=== PATIENT | female | born 1940 | race Caucasian/White ===

== ENCOUNTER 2018-03-30 09:30 | Emergency (ER) | payer MEDICARE, SELFPAY ==
[2018-03-30 09:34] VITALS: BP 136/68; PULSE 86; RESP 16; TEMP 36.7; O2SAT 100
[2018-03-30 09:59] LABS: Abs Immature Grans 0.01 k/cumm (0.0-0.09); Absolute Basophil Count 0.01 k/cumm (0.0-0.2); Absolute Eosinophil Count 0.27 k/cumm (0.0-0.7); Absolute Lymphocyte Count 2.07 k/cumm (1.2-3.4); Absolute Monocyte Count 0.37 k/cumm (0.11-0.7); Absolute Neutrophil Count 4.35 k/cumm (1.2-6.7); Basophils % 0.1; Bilirubin Negative (Negative); Blood Negative (Negative); Clarity Clear; Eosinophils % 3.8; Glucose Negative (Negative); HCT 45.2 % (36.0-46.0); HGB 15.5 g/dL (12.0-15.5); Immature Grans % 0.1; Ketones Negative (Negative); Leukocyte Esterase Negative (Negative); Lymphocytes % 29.2; Mean Corp. HGB Concentration 34.3 g/dL (32.0-36.0); Mean Corpuscular Hemoglobin 32.5 pg (27.0-33.0); Mean Corpuscular Volume 94.8 fL (80-95); Mean Platelet Volume 9.8 fL (8.0-11.0); Monocytes % 5.2; Neutrophils % 61.6; Nitrite Negative (Negative); Platelet Count 233 x1000/uL (130-400); RBC 4.77 m/cumm (4.00-5.20); RBC Distribution Width 13.2 % (11.7-14.6); Specific Gravity 1.025 (1.005-1.025); Urobilinogen 0.2 EU/dL (Up TO 0.2); White Blood Cell Count 7.08 k/cumm (4.4-10.8); pH 6.5 (5-8)
[2018-03-30 10:15] LABS: ALT 17 U/L (12-78); AST 16 U/L (15-37); Albumin 3.4 g/dL (3.4-5.0); Alkaline Phosphatase 76 U/L (46-116); Anion Gap 6.4 mmol/L (3-11); BUN 10 mg/dL (7-18); Bilirubin, Direct 0.15 mg/dL (0.00-0.20); Bilirubin, Total 0.8 mg/dL (0.2-1.0); CO2 29.6 mmol/L (21.0-32.0); Calcium 9.1 mg/dL (8.5-10.1); Chloride 102 mmol/L (98-107); Glucose 85 mg/dL (70-100); Lipase 86 U/L (73-393); Magnesium 1.9 mg/dL (1.8-2.4); Potassium 3.8 mmol/L (3.5-5.1); Sodium 138 mmol/L (136-145); Total Protein 6.7 g/dL (6.4-8.2)
[2018-03-30 10:18] LABS: Troponin I < 0.02 ng/mL (0.00-0.06)
--- NOTE | 2018-03-30 10:23 | DI.CT_ITS ---
SYMPTOMS/DIAGNOSIS: RT SIDED ABD PAIN, ? ACUTE PROCESS CT SCAN OF THE ABDOMEN AND PELVIS: CT scan of the abdomen and pelvis was performed following the uneventful administration of intravenous contrast material. Infiltrates are seen in the right middle and right lower lobe. There does appear to be some volume loss in the right middle lobe with scar bronchiectasis. The patient is status post cholecystectomy. There is dilatation of the extra and intrahepatic bile ducts which is new compared to the prior examination from 03/07/16. No hepatic mass is seen. The pancreas is unremarkable. The spleen is normal in size. The adrenal glands are unremarkable. There is again seen a large right renal cyst. There is normal and symmetric enhancement of the kidneys. No hydronephrosis is identified. The urinary bladder is intact. There are calcified uterine fibroids noted. The aorta is of normal caliber with mild atherosclerosis. No significant abdominal or pelvic adenopathy, ascites or pneumoperitoneum is present. There is diverticulosis of the colon but no evidence of acute diverticulitis. No evidence of bowel obstruction or inflammation. There is a moderate amount of retained stool in the colon suggesting constipation. There is now a large diverticulum arising from the second portion of the duodenum. This has shown internal increase in size compared to 03/07/16. Degenerative changes are seen in the spine particularly at the L 2 - 3 disc level. IMPRESSION: 1. New intra and extrahepatic biliary ductal dilatation. Follow up as clinically appropriate. If there is concern for a choledocholithiasis, an MRCP may be considered. 2. Constipation. 3. Interval increase in size of duodenal diverticulum. 4. Colonic diverticulosis but no evidence of acute diverticulitis. 5. Infiltrates in the right middle and right lower lobes with some volume loss and scarring in the right middle lobe. Pneumonia can not be excluded.
--- NOTE | 2018-03-30 10:25 | W.ED.GENAD ---
Discharge Plan Disposition Patient Disposition: HOME Condition: Improving Discharge Details Chief Complaint: Abd Prob Clinical Impression: Side pain Primary Care Provider: Jefferson Spain ED Provider: Antonia Hammonds Home Meds and New Rx's Prescriptions: Continue PROVENTIL HFA 18 GM HFA.AER.AD 2 puff Inhalation Q4H PRN Qty: 3 RF: 4 fluticasone [Flovent HFA] 12 GM HFA aerosol inhaler 2 puff Inhalation BID Qty: 3 RF: 11 umeclidinium [Incruse Ellipta] 62.5 MCG blister with device 1 puff Inhalation daily' Qty: 3 RF: 4 hydrocodone-acetaminophen 1 EACH tablet 1 ea PO TID PRNQty: 90 RF: 0 lorazepam 0.5 mg tablet 0.5 mg PO DIRECTED PRN (Reason: sleep) Qty: 60 RF: 2 Discharge Instructions Instructions: Muscle Strain (ED), Flank Pain (ED) Additional Instructions: Alternate ice and heat to the affected area several times daily. Alternate Tylenol and Motrin as needed and directed for pain. Follow-up with primary care doctor in 1 week for reevaluation as needed. Return to the emergency department any worsening or new concerning symptoms. Discharge Data Discharge Physician: Antonia Hammonds Medical Decision Making 77 year old F w/ COPD, Diverticulitis w/ constant gnawing R sided abdominal pain since yesterday after cleaning pictures at home. Denies known injury. Nausea but no vomiting, diarrhea, urinary symptoms or fever. States feels similar to previous diverticulitis but in different location. No h/o kidney stones. Pt appears very anxious. Vitals within normal limits. She has no anterior abdominal tenderness. She has a very localized area of tenderness R lateral abdomen overlying external oblique muscles. No CVAT. No mass. Differential diagnoses includes muscle strain, pyelonephritis, acute abdominal process, kidney stone. Doubt kidney stone as pain is worse with walking and very locally tender. Could possibly be shingles pain prior to onset of rash but she is not tender to light touch or sensitive to clothing touching area. Labs ordered on arrival and are negative. Do not see an indication for CXR as she denies chest pain or shortness of breath. Will obtain CT abdomen and pelvis and give a dose of toradol, valium and bolus ivf. 1000 -- EKG notes a rate of 81, sinus, T wave inversion in V2, V3, V4 and V5 which is been seen in previous EKG. QTC 432. QRS 100. 1100 --patient admits to improvement in pain after Toradol. She still appears mildly anxious but otherwise much more comfortable. She states she drove herself here but does have a ride home. We will give a dose of Valium 1200 --CT scan notes constipation but no acute intra-abdominal process. Patient states her pain is completely resolved and is requesting to go home. She is instructed to alternate Tylenol and Motrin as needed and directed for pain. She is instructed to return immediately to the emergency department any worsening or new concerning symptoms. She is instructed to follow-up with her primary care doctor in 1 week for reevaluation. HPI General Mode of arrival: ambulatory. Date/Time Provider Initiated Documentation: 03/30/18 09:39. Limitations to Documentation: no limitations. Information obtained by: patient. HPI Narrative: Pt is a 77yo F who presents to the ED w/ a c/o constant gnawing right sided abdominal pain since yesterday evening. States the pain started after cleaning pictures at home but she denies any known injury. She admits to nausea but denies any vomiting, diarrhea, urinary symptoms or fever or h/o kidney stones. She states the pain is currently 10/10 and worse with walking. She denies any relief after Vicodin. She states her last bowel movement was yesterday and denies any bleeding. She admits to decreased appetite since the pain started. She admits to a similar type of pain with her previous diverticulitis but in a different location. Past medical history: Asthma, COPD, Diverticulitis Surgical history: Appendectomy, Cholecystectomy, Hip replacement, Intestinal resection after diverticular abscess Social history: Smokes tobacco, Denies alcohol or drugs Meds: Flovent, Ativan, Vicodin, Proventil, Ellipta Allergies: Relafen Related Data Home Medications Medication Instructions Recorded Confirmed fluticasone [Flovent HFA] 2 puff INHALATION BID #3 inhaler 10/15/17 03/30/18 umeclidinium [Incruse Ellipta] 1 puff INHALATION daily' #3 inhaler 01/01/18 03/30/18 hydrocodone-acetaminophen 1 ea PO TID PRN #90 tab-cap 01/14/18 03/30/18 lorazepam 0.5 mg tablet 0.5 mg PO DIRECTED PRN #60 tab 03/04/18 03/30/18 Previous Rx's Medication Instructions Recorded fluticasone [Flovent HFA] 2 puff INHALATION BID #3 inhaler 10/15/17 umeclidinium [Incruse Ellipta] 1 puff INHALATION daily' #3 inhaler 01/01/18 lorazepam 0.5 mg tablet 0.5 mg PO DIRECTED PRN #60 tab 03/04/18 Allergies Allergy/AdvReac Type Severity Reaction Status Date / Time nabumetone [From Relafen] AdvReac Intermediate GI UPSET Unverified 01/14/18 11:01 General Stated Complaint: Abd Prob TRAM: 3 Review of Systems Review of Systems All systems reviewed & are unremarkable except as noted in HPI and below Constitutional Denies chills, Denies excessive sweating, Denies fatigue, Denies fever(s), Denies weakness and Denies weight loss Eyes Reports system reviewed and no additional complaints, except as docu and Denies blurry vision ENT Denies vertigo, Denies dizziness, Denies otalgia, Denies nasal congestion, Denies sore throat and Denies throat swelling Cardiovascular Denies chest pain, Denies syncope, Denies rapid heart rate and Denies dyspnea Respiratory Denies dyspnea Gastrointestinal Reports abdominal pain, Denies diarrhea, Reports nausea and Denies vomiting Genitourinary Denies hematuria, Denies dysuria and Denies flank pain Musculoskeletal Denies back pain and Denies joint swelling Integumentary/Breasts Denies lesions and Denies rash Neurologic Denies behavioral changes, Denies confusion, Denies vertigo, Denies dizziness, Denies syncope and Denies weakness Psychiatric Denies behavioral changes, Denies confusion and Denies depression Endocrine Denies excessive sweating and Denies fatigue Hematologic/Lymphatic Denies easy bruising and Denies lymphadenopathy Allergic/Immunologic Denies throat swelling [facility] Social History Smoking/Tobacco Use Status: Current every day Exam Const General: cooperative and anxious Orientation: alert, awake and oriented x3 HENMT Head: normal to inspection Ears: hearing grossly normal bilaterally and external ears normal General nose exam: external nose normal Face and sinus: normal facial exam Mouth: oral mucosae normal Eyes General: appearance normal, both eyes and all related structures Eyelids: eyelids normal EOM: EOM intact bilaterally Neck Neck: normal visual inspection Lymphatic: no lymphadenopathy noted Chest Chest: normal inspection of the chest Resp Effort & Inspection: normal respiratory effort and able to speak in complete sentences Auscultation: clear to auscultation bilaterally Cardio Rate: regular rate Rhythm: regular rhythm GI Inspection: normal to inspection Palpation: soft, not firm, no guarding, no hepatosplenomegaly, no hernias, no masses, no pulsatile masses, not rigid and no splenomegaly Auscultation: normal bowel sounds Abdomen image: 1. Localized area of tenderness to right lateral abdomen overlying external oblique abdominal muscles. No rash, edema, erythema, ecchymoses, mass, or abscess noted Back/Spine/Pelvis Back: no CVA tenderness Skin General skin exam: no rashes or lesions noted Neuro General: alert and awake Cognition: normal cognition Speech: speech normal Gait: normal gait Motor: muscle tone normal throughout Sensory Exam: no sensory deficits noted Extrem General: normal to inspection, full ROM, normal capillary refill and no edema Psych Appearance: grossly normal Mental Status: mental status grossly normal Speech and Movement: speech and movement normal Affect: normal affect Thought Process: normal Course Vital Signs Temperature 98.1 F 03/30/18 09:34 Pulse 86 03/30/18 09:34 Respiratory Rate 16 03/30/18 09:34 Blood Pressure 136/68 03/30/18 09:34 Pulse Oximetry 100 03/30/18 09:34 Temperature 98.1 F 03/30/18 09:34 Temperature Source Temporal Artery Scan 03/30/18 09:34 Pulse 86 03/30/18 09:34 Respiratory Rate 16 03/30/18 09:34 Respiratory Effort 03/30/18 09:38 Blood Pressure 136/68 03/30/18 09:34 Blood Pressure Position Sitting 03/30/18 09:34 Pulse Oximetry 100 03/30/18 09:34 Oxygen Delivery Method Room Air 03/30/18 09:34 Oxygen Flow Rate 0 03/30/18 09:34 Pain Level 10 03/30/18 09:34 Lab/Test Results Lab/Test Results: Laboratory Tests Range/Units 03/30/18 03/30/18 03/30/18 09:50 09:50 09:50 WBC (4.4-10.8) k/cumm 7.08 RBC (4.00-5.20) m/cumm 4.77 Hgb (12.0-15.5) g/dL 15.5 Hct (36.0-46.0) % 45.2 MCV (80-95) fL 94.8 MCH (27.0-33.0) pg 32.5 MCHC (32.0-36.0) g/dL 34.3 RDW (11.7-14.6) % 13.2 Plt Count (130-400) x1000/uL 233 MPV (8.0-11.0) fL 9.8 Immature Gran % 0.1 Neutrophils % 61.6 Lymphocytes % 29.2 Monocytes % 5.2 Eosinophils % 3.8 Basophils % 0.1 Absolute Neutrophils (1.2-6.7) k/cumm 4.35 Absolute Lymphocytes (1.2-3.4) k/cumm 2.07 Absolute Monocytes (0.11-0.7) k/cumm 0.37 Absolute Eosinophils (0.0-0.7) k/cumm 0.27 Absolute Basophils (0.0-0.2) k/cumm 0.01 Sodium (136-145) mmol/L 138 Potassium (3.5-5.1) mmol/L 3.8 Chloride (98-107) mmol/L 102 Carbon Dioxide (21.0-32.0) mmol/L 29.6 Anion Gap (3-11) mmol/L 6.4 BUN (7-18) mg/dL 10 Creatinine (0.55-1.02) mg/dL 0.60 Estimated GFR/1.73 m2 (mL/min/1.73m2) >= 60.00 Glucose (70-100) mg/dL 85 Calcium (8.5-10.1) mg/dL 9.1 Magnesium (1.8-2.4) mg/dL 1.9 Total Bilirubin (0.2-1.0) mg/dL 0.8 Conjugated Bilirubin (0.00-0.20) mg/dL 0.15 AST (15-37) U/L 16 ALT (12-78) U/L 17 Alkaline Phosphatase (46-116) U/L 76 Troponin I (0.00-0.06) ng/mL < 0.02 Total Protein (6.4-8.2) g/dL 6.7 Albumin (3.4-5.0) g/dL 3.4 Lipase (73-393) U/L 86 Urine Color (Yellow) Yellow Urine Clarity Clear Urine pH (5-8) 6.5 Ur Specific [place] (1.005-1.025) 1.025 Urine Protein (Negative) mg/dL Negative Urine Ketones (Negative) mg/dL Negative Urine Blood (Negative) Negative Urine Nitrite (Negative) Negative Urine Bilirubin (Negative) Negative Urine Urobilinogen (Up TO 0.2) EU/dL 0.2 Ur Leukocyte Esterase (Negative) Negative Urine Glucose (Negative) mg/dL Negative
[2018-03-30] MEDS: Ketorolac 30 MG/ML VIAL IVP (10:32)
--- NOTE | 2018-03-30 10:33 | ED.GENADUL_ITS ---
Discharge Plan Disposition Patient Disposition: HOME Condition: Improving Discharge Details Chief Complaint: Abd Prob Clinical Impression: Side pain Primary Care Provider: Jefferson Spain ED Provider: Antonia Hammonds Home Meds and New Rx's Prescriptions: Continue PROVENTIL HFA 18 GM HFA.AER.AD 2 puff Inhalation Q4H PRN Qty: 3 RF: 4 fluticasone [Flovent HFA] 12 GM HFA aerosol inhaler 2 puff Inhalation BID Qty: 3 RF: 11 umeclidinium [Incruse Ellipta] 62.5 MCG blister with device 1 puff Inhalation daily' Qty: 3 RF: 4 hydrocodone-acetaminophen 1 EACH tablet 1 ea PO TID PRNQty: 90 RF: 0 lorazepam 0.5 mg tablet 0.5 mg PO DIRECTED PRN (Reason: sleep) Qty: 60 RF: 2 Discharge Instructions Instructions: Muscle Strain (ED), Flank Pain (ED) Additional Instructions: Alternate ice and heat to the affected area several times daily. Alternate Tylenol and Motrin as needed and directed for pain. Follow-up with primary care doctor in 1 week for reevaluation as needed. Return to the emergency department any worsening or new concerning symptoms. Discharge Data Discharge Physician: Antonia Hammonds Medical Decision Making 77 year old F w/ COPD, Diverticulitis w/ constant gnawing R sided abdominal pain since yesterday after cleaning pictures at home. Denies known injury. Nausea but no vomiting, diarrhea, urinary symptoms or fever. States feels similar to previous diverticulitis but in different location. No h/o kidney stones. Pt appears very anxious. Vitals within normal limits. She has no anterior abdominal tenderness. She has a very localized area of tenderness R lateral abdomen overlying external oblique muscles. No CVAT. No mass. Differential diagnoses includes muscle strain, pyelonephritis, acute abdominal process, kidney stone. Doubt kidney stone as pain is worse with walking and very locally tender. Could possibly be shingles pain prior to onset of rash but she is not tender to light touch or sensitive to clothing touching area. Labs ordered on arrival and are negative. Do not see an indication for CXR as she denies chest pain or shortness of breath. Will obtain CT abdomen and pelvis and give a dose of toradol, valium and bolus ivf. 1000 -- EKG notes a rate of 81, sinus, T wave inversion in V2, V3, V4 and V5 which is been seen in previous EKG. QTC 432. QRS 100. 1100 --patient admits to improvement in pain after Toradol. She still appears mildly anxious but otherwise much more comfortable. She states she drove herself here but does have a ride home. We will give a dose of Valium 1200 --CT scan notes constipation but no acute intra-abdominal process. Patient states her pain is completely resolved and is requesting to go home. She is instructed to alternate Tylenol and Motrin as needed and directed for pain. She is instructed to return immediately to the emergency department any worsening or new concerning symptoms. She is instructed to follow-up with her primary care doctor in 1 week for reevaluation. HPI General Mode of arrival: ambulatory . Date/Time Provider Initiated Documentation: 03/30/18 09:39 . Limitations to Documentation: no limitations . Information obtained by: patient . HPI Narrative: Pt is a 77yo F who presents to the ED w/ a c/o constant gnawing right sided abdominal pain since yesterday evening. States the pain started after cleaning pictures at home but she denies any known injury. She admits to nausea but denies any vomiting, diarrhea, urinary symptoms or fever or h/o kidney stones. She states the pain is currently 10/10 and worse with walking. She denies any relief after Vicodin. She states her last bowel movement was yesterday and denies any bleeding. She admits to decreased appetite since the pain started. She admits to a similar type of pain with her previous diverticulitis but in a different location. Past medical history: Asthma, COPD, Diverticulitis Surgical history: Appendectomy, Cholecystectomy, Hip replacement, Intestinal resection after diverticular abscess Social history: Smokes tobacco, Denies alcohol or drugs Meds: Flovent, Ativan, Vicodin, Proventil, Ellipta Allergies: Relafen Related Data Home Medications Medication Instructions Recorded Confirmed fluticasone [Flovent HFA] 2 puff INHALATION BID #3 inhaler 10/15/17 03/30/18 umeclidinium [Incruse Ellipta] 1 puff INHALATION daily' #3 inhaler 01/01/1801/08 hydrocodone-acetaminophen 1 ea PO TID PRN #90 tab-cap 01/14/18 03/30/18 lorazepam 0.5 mg tablet 0.5 mg PO DIRECTED PRN #60 tab 03/04/18 03/30/18 Previous Rx's Medication Instructions Recorded fluticasone [Flovent HFA] 2 puff INHALATION BID #3 inhaler 10/15/17 umeclidinium [Incruse Ellipta] 1 puff INHALATION daily' #3 inhaler 01/01/18 lorazepam 0.5 mg tablet 0.5 mg PO DIRECTED PRN #60 tab 03/04/18 Allergies Allergy/AdvReac Type Severity Reaction Status Date / Time nabumetone [From Relafen] AdvReac Intermediate GI UPSET Unverified 01/14/18 11: 01 General Stated Complaint: Abd Prob TRAM: 3 Review of Systems Review of Systems All systems reviewed & are unremarkable except as noted in HPI and below Constitutional Denies chills, Denies excessive sweating, Denies fatigue, Denies fever(s), Denies weakness and Denies weight loss Eyes Reports system reviewed and no additional complaints, except as docu and Denies blurry vision ENT Denies vertigo, Denies dizziness, Denies otalgia, Denies nasal congestion, Denies sore throat and Denies throat swelling Cardiovascular Denies chest pain, Denies syncope, Denies rapid heart rate and Denies dyspnea Respiratory Denies dyspnea Gastrointestinal Reports abdominal pain, Denies diarrhea, Reports nausea and Denies vomiting Genitourinary Denies hematuria, Denies dysuria and Denies flank pain Musculoskeletal Denies back pain and Denies joint swelling Integumentary/Breasts Denies lesions and Denies rash Neurologic Denies behavioral changes, Denies confusion, Denies vertigo, Denies dizziness, Denies syncope and Denies weakness Psychiatric Denies behavioral changes, Denies confusion and Denies depression Endocrine Denies excessive sweating and Denies fatigue Hematologic/Lymphatic Denies easy bruising and Denies lymphadenopathy Allergic/Immunologic Denies throat swelling [facility] [place] Social History Smoking/Tobacco Use Status: Current every day Exam Const General: cooperative and anxious Orientation: alert, awake and oriented x3 HENMT Head: normal to inspection Ears: hearing grossly normal bilaterally and external ears normal General nose exam: external nose normal Face and sinus: normal facial exam Mouth: oral mucosae normal Eyes General: appearance normal, both eyes and all related structures Eyelids: eyelids normal EOM: EOM intact bilaterally Neck Neck: normal visual inspection Lymphatic: no lymphadenopathy noted Chest Chest: normal inspection of the chest Resp Effort & Inspection: normal respiratory effort and able to speak in complete sentences Auscultation: clear to auscultation bilaterally Cardio Rate: regular rate Rhythm: regular rhythm GI Inspection: normal to inspection Palpation: soft, not firm, no guarding, no hepatosplenomegaly, no hernias, no masses, no pulsatile masses, not rigid and no splenomegaly Auscultation: normal bowel sounds Abdomen image: 2 1. Localized area of tenderness to right lateral abdomen overlying external oblique abdominal muscles. No rash, edema, erythema, ecchymoses, mass, or abscess noted Back/Spine/Pelvis Back: no CVA tenderness Skin General skin exam: no rashes or lesions noted Neuro General: alert and awake Cognition: normal cognition Speech: speech normal Gait: normal gait Motor: muscle tone normal throughout Sensory Exam: no sensory deficits noted Extrem General: normal to inspection, full ROM, normal capillary refill and no edema Psych Appearance: grossly normal Mental Status: mental status grossly normal Speech and Movement: speech and movement normal Affect: normal affect Thought Process: normal Course Vital Signs Temperature 98.1 F 03/30/18 09:34 Pulse 86 03/30/18 09:34 Respiratory Rate 16 03/30/18 09:34 Blood Pressure 136/68 03/30/18 09:34 Pulse Oximetry 100 03/30/18 09:34 Temperature 98.1 F 03/30/18 09:34 Temperature Source Temporal Artery Scan 03/30/18 09:34 Pulse 86 03/30/18 09:34 Respiratory Rate 16 03/30/18 09:34 Respiratory Effort 03/30/18 09:38 Blood Pressure 136/68 03/30/18 09:34 Blood Pressure Position Sitting 03/30/18 09:34 Pulse Oximetry 100 03/30/18 09:34 Oxygen Delivery Method Room Air 03/30/18 09:34 Oxygen Flow Rate 0 03/30/18 09:34 Pain Level 10 03/30/18 09:34 Lab/Test Results Lab/Test Results: Laboratory Tests Range/Units 03/30/18 03/30/18 03/30/18 09:50 09:50 09:50 WBC (4.4-10.8) k/cumm 7.08 RBC (4.00-5.20) m/cumm 4.77 Hgb (12.0-15.5) g/dL 15.5 Hct (36.0-46.0) % 45.2 MCV (80-95) fL 94.8 MCH (27.0-33.0) pg 32.5 MCHC (32.0-36.0) g/dL 34.3 RDW (11.7-14.6) % 13.2 Plt Count (130-400) x1000/uL 233 MPV (8.0-11.0) fL 9.8 Immature Gran % 0.1 Neutrophils % 61.6 Lymphocytes % 29.2 Monocytes % 5.2 Eosinophils % 3.8 Basophils % 0.1 Absolute Neutrophils (1.2-6.7) k/cumm 4.35 Absolute Lymphocytes (1.2-3.4) k/cumm 2.07 Absolute Monocytes (0.11-0.7) k/cumm 0.37 Absolute Eosinophils (0.0-0.7) k/cumm 0.27 Absolute Basophils (0.0-0.2) k/cumm 0.01 Sodium (136-145) mmol/L 138 Potassium (3.5-5.1) mmol/L 3.8 Chloride (98-107) mmol/L 102 Carbon Dioxide (21.0-32.0) mmol/L 29.6 Anion Gap (3-11) mmol/L 6.4 BUN (7-18) mg/dL 10 Creatinine (0.55-1.02) mg/dL 0.60 Estimated GFR/1.73 m2 (mL/min/1.73m2) >= 60.00 Glucose (70-100) mg/dL 85 Calcium (8.5-10.1) mg/dL 9.1 Magnesium (1.8-2.4) mg/dL 1.9 Total Bilirubin (0.2-1.0) mg/dL 0.8 Conjugated Bilirubin (0.00-0.20) mg/dL 0.15 AST (15-37) U/L 16 ALT (12-78) U/L 17 Alkaline Phosphatase (46-116) U/L 76 Troponin I (0.00-0.06) ng/mL < 0.02 Total Protein (6.4-8.2) g/dL 6.7 Albumin (3.4-5.0) g/dL 3.4 Lipase (73-393) U/L 86 Urine Color (Yellow) Yellow Urine Clarity Clear Urine pH (5-8) 6.5 Ur Specific [place] (1.005-1.025) 1.025 Urine Protein (Negative) mg/dL Negative Urine Ketones (Negative) mg/dL Negative Urine Blood (Negative) Negative Urine Nitrite (Negative) Negative Urine Bilirubin (Negative) Negative Urine Urobilinogen (Up TO 0.2) EU/dL 0.2 Ur Leukocyte Esterase (Negative) Negative Urine Glucose (Negative) mg/dL Negative
[2018-03-30] MEDS: Omnipaque 350 MG/ML 100 ML BTL IV (11:17)
[2018-03-30] MEDS: Diazepam 5 MG TAB PO (11:18)
[2018-03-30 11:32] VITALS: BP 130/61; PULSE 78; RESP 18; TEMP 36.8; O2SAT 94
--- NOTE | 2018-03-30 11:57 | DI.VRAD_ITS ---
EXAM: CT Abdomen and Pelvis With Intravenous Contrast CLINICAL HISTORY: 77 years old, female; Signs and symptoms; Other: R sided abdominal pain, R/O ac; Prior surgery; Surgery date: 6+ months; Surgery type: Appendectomy, gallbladder removed TECHNIQUE: Axial computed tomography images of the abdomen and pelvis with intravenous contrast. All CT scans at this facility use at least one of these dose optimization techniques: automated exposure control; mA and/or kV adjustment per patient size (includes targeted exams where dose is matched to clinical indication); or iterative reconstruction. Coronal and sagittal reformatted images were created and reviewed. COMPARISON: CT ABD PELVIS WITH CONTRAST 03/07/2016 7:35 PM FINDINGS: Mild basilar interstitial lung scarring with a more prominent consolidation at the right lung base suggesting atelectasis although pneumonitis cannot be excluded. Prior cholecystectomy. Slight increase in intra-and extrahepatic biliary dilatation without a specific obstructing process identified. Correlation with bilirubin and alkaline phosphatase levels may be helpful. Moderate fecal material within the colon suggesting some degree of constipation. Multiple calcified uterine fibroids. No definite acute inflammatory process. No evidence of bowel obstruction. No significant free fluid. IMPRESSION: Constipation. Mild intra-and extrahepatic biliary dilatation most likely related to prior cholecystectomy see above discussion. No specific etiology identified for patient's symptoms. Dictated and Authenticated by: Gaudencio Lynch MD. Ordering:CARLOS ODOM MD
== END 2018-03-30 12:33 | disposition home or self-care (01) ==
PROVIDERS: Emergency Provider Physician Assistant; PCP Family Medicine
DX: R10.31 Right lower quadrant pain (principal); R11.0 Nausea; J44.9 Chronic obstructive pulmonary disease, unspecified; F17.210 Nicotine dependence, cigarettes, uncomplicated
CPT/HCPCS: 36415; 80053; 80076; 83690; 93005; 96374; 99285; 74177; 81003; 83735; 84484; 85025; 93010; J1885; J3490

== ENCOUNTER 2018-05-26 01:24 | Outpatient (CLI) | payer MEDICARE, SELFPAY ==
[2018-05-26 11:39] LABS: Cholesterol 226 mg/dL (50-200); HDL Cholesterol 91 mg/dL (40-60); LDL CHOLESTEROL 117 mg/dL (<100); Triglyceride 90 mg/dL (30-150)
== END 2018-05-26 01:44 ==
PROVIDERS: PCP Family Medicine; Visit Provider Family Medicine
DX: E78.5 Hyperlipidemia, unspecified (principal)
CPT/HCPCS: 36415; 80061; 83721

== ENCOUNTER 2019-04-07 21:07 | Emergency (ER) | payer MEDICARE, SELFPAY ==
[2019-04-07 21:07] VITALS: BP 134/70; PULSE 85; RESP 18; TEMP 36.5; O2SAT 94
[2019-04-07 21:23] VITALS: RESP 4; O2SAT 93
[2019-04-07] MEDS: Albuterol/Ipratropium 3 ML UPD VIAL (21:23)
--- NOTE | 2019-04-07 21:31 | DI.RAD_ITS ---
EXAM: XR CHEST 2V PA LATERAL INDICATION: SOB/wheeze. COMPARISON: LEFT SHOULDER COMPLETE from 03/26/2017 TECHNIQUE: 2D digital imaging was performed. FINDINGS: The heart size is normal. The aorta is mildly tortuous. There is an area of scarring in the right middle lobe. No superimposed infiltrate, effusion or pulmonary edema. IMPRESSION: No acute abnormality.
--- NOTE | 2019-04-07 21:32 | ED.GENADUL_ITS ---
Discharge Plan Disposition Patient Disposition: HOME Condition: Good Discharge Details Chief Complaint: RespSymp Clinical Impression: COPD (chronic obstructive pulmonary disease), Anxiety, Tobacco dependence Primary Care Provider: Jefferson Spain ED Provider: Rui Resendiz Home Meds and New Rx's Prescriptions: Continued hydrocodone-acetaminophen 5-325 mg tablet 1 tab PO TID MDD 3 tab PRN (Reason: pain) Qty: 90 RF: 0 Incruse Ellipta 62.5 mcg/actuation blister with device 1 inh Inhalation daily' Qty: 3 RF: 4 albuterol sulfate [Ventolin HFA] 90 mcg/actuation HFA aerosol inhaler 2 puff IH Q6H PRN (Reason: shortness of breath or wheezing) Qty: 3 RF: 4 Flovent HFA 110 mcg/actuation HFA aerosol inhaler 2 puff Inhalation BID Qty: 3 RF: 11 Discharge Instructions Instructions: How to Stop Smoking (ED) Additional Instructions: I think tonjudson's episode was related to both COPD and anxiety. You really need to try to quit smoking and trying nicotine patch is probably a good idea. These can be purchased [id number] at any drugstore. Follow-up with primary care next week if continued problems. Return to ED if you develop fever, increasing shortness of breath, chest pain or pressure, other concerns or problems. Referrals: Jefferson Spain MD [Primary Care Provider] - Medical Decision Making Patient presenting to ED with complaint of shortness of breath. EMS reports hyperventilation and tingling all over which likely was anxiety driven but suspect that was related to feeling short of breath when she woke up. She did not receive neb treatment in route. She was wheezing throughout on nursing assessment and was given a DuoNeb prior to me seeing her. She reports feeling much better after the DuoNeb. She has a few wheezes left but is in no distress. At no time did she have any chest pain, pressure, tightness. She has had no fever or cough to speak of. She does continue to smoke although has been contemplating trying to stop and using nicotine patch. Given that the patient feels much better after just one neb I am going to hold off on labs. I think part of her problem was anxiety and hyperventilation but that may have been triggered by mild COPD exacerbation. Will obtain EKG and chest x-ray. Will give 1 more neb and reevaluate. Patient's EKG without anything acute. Chest x-ray shows right hilar scarring which has been present. Feels back to normal after the second neb. Waiting preliminary radiology read if in agreement with my read we will plan discharge. Medical Records Medical records reviewed: Yes I reviewed the patient's medical records. ECG Data Attestation: I personally reviewed and interpreted this ECG (s) as follows: Prior ECG tracings: not available for review Interpretation: Sinus rhythm at 74. Normal intervals and axis. Nonspecific ST changes. No acute elevation or depression. HPI General Mode of arrival: EMS . Date/Time Provider Initiated Documentation: 04/07/19 21:26 . Limitations to Documentation: no limitations . Information obtained by: patient, EMS and RN notes reviewed . HPI Narrative: Patient presents to ED by ambulance with complaint of shortness of breath. Patient has history of COPD and continues to smoke. She had been feeling fine for the last few days. This afternoon woke up from a nap and felt short of breath. Called EMS and when they arrived she was hyperventilating complaining of tingling all over. She was calmed down and felt a little bit better but transported for evaluation. She continues to feel some shortness of breath and wheezing. She denies fever or change in cough. She has no chest pain, tightness, pressure. There is no back pain. She has no leg pain or swelling. Related Data Home Medications Medication Instructions Recorded Confirmed albuterol sulfate 90 mcg/actuation 2 puff IH Q6H PRN #3 device 05/06/18 04/07/19 aerosol inhaler fluticasone propionate 110 2 puff INHALATION BID #3 inhaler 10/22/18 04/07/19 mcg/actuation HFA aerosol inhaler hydrocodone 5 mg-acetaminophen 325 1 tab PO TID PRN #90 tab-cap MDD 3 01/06/19 04/07/19 mg tablet tab umeclidinium 62.5 mcg/actuation 1 inh INHALATION daily' #3 inhaler 01/06/19 04/07/19 blister powder for inhalation Previous Rx's Medication Instructions Recorded albuterol sulfate 90 mcg/actuation 2 puff IH Q6H PRN #3 device 05/06/18 aerosol inhaler fluticasone propionate 110 2 puff INHALATION BID #3 inhaler 10/22/18 mcg/actuation HFA aerosol inhaler hydrocodone 5 mg-acetaminophen 325 1 tab PO TID PRN #90 tab-cap MDD 3 01/06/19 mg tablet tab umeclidinium 62.5 mcg/actuation 1 inh INHALATION daily' #3 inhaler 01/06/19 blister powder for inhalation Allergies Allergy/AdvReac Type Severity Reaction Status Date / Time nabumetone [From Relafen] AdvReac Intermediate GI UPSET Verified 04/07/19 21:47 General Stated Complaint: RespSymp TRAM: 3 Review of Systems Review of Systems Narrative: As documented in HPI otherwise negative as below. Const: no fever, chills, weakness Resp: SOB and wheezing; no cough, pleuritic pain CV: no CP, diaphoresis, edema, syncope GI: no abdominal pain, nausea, vomiting, diarrhea Neuro: no headache, numbness, focal weakness, confusion PFSH Medical History Acquired cyst of kidney (Inactive 05/23/05) Alcohol abuse (Inactive) Chronic obstructive lung disease (Chronic) Chronic pain syndrome (Chronic 01/14/18) Closed fracture of two ribs (Inactive 12/01/09) Diverticulitis of colon (Inactive 05/23/89) Electroencephalogram abnormality (Inactive 05/23/07) Hepatitis A virus infection (Inactive) Hyperlipidemia (Chronic) Pneumococcal pneumonia (Inactive 05/23/98) Viral meningitis (Inactive 12/21/05) Surgical History History of bilateral ligation of fallopian tubes (Inactive) History of colectomy (Inactive) Status post appendectomy (Inactive) Status post cholecystectomy (Inactive) Status post hip replacement (Inactive) Social History Smoking/Tobacco Use Status: Current every day Tobacco Type: cigarettes Alcohol Intake: never Drug use: Never Substance use type: does not use Pets and animals: No Frequency: does not exercise Jessa/Yarsanism: No preference Special jessa needs: No Do you feel safe at home: Yes Do you feel safe in your relationship?: Yes Exam Narrative Exam Narrative: Vitals: Afebrile. Normal vital signs. Room air saturations low to mid 90s. Const: WDWN elderly female in NAD. HEENT: NC/AT. Normal facial exam. Eyes: Normal conjunctiva and sclera. Neck: Supple. Trachea midline. Lungs: Normal respiratory effort. Lungs with few wheezes after Duoneb treatment. Cor: RRR without murmur/gallop. Good radial pulses. GI: Soft. NT/ND. No guarding or rebound. Neuro: A+O x 3. CN grossly in tact. Good strength and no focal deficit. Ext: No C/C/E. No calf tenderness. Skin: Warm and dry without rash. Course Vital Signs Vital signs: Vital Signs Temperature 97.7 F 04/07/19 21:07 Pulse 85 04/07/19 21:07 Respiratory Rate 18 04/07/19 21:07 Blood Pressure 134/70 04/07/19 21:07 Pulse Oximetry 94 L 04/07/19 21:07 Temperature 97.7 F 04/07/19 21:07 Temperature Source Skin 04/07/19 21:07 Pulse 85 04/07/19 21:07 Respiratory Rate 18 04/07/19 21:07 Blood Pressure 134/70 04/07/19 21:07 Blood Pressure Position Supine 04/07/19 21:07 Pulse Oximetry 93 L 04/07/19 21:23 Oxygen Delivery Method Room Air 04/07/19 21:23 Oxygen Flow Rate 0 04/07/19 21:23 Pain Level 0 04/07/19 21:07
[2019-04-07 21:34] VITALS: PULSE 98; RESP 20; RESP 4; O2SAT 96
[2019-04-07 21:46] VITALS: PULSE 88; RESP 20; RESP 4; O2SAT 96
[2019-04-07] MEDS: Albuterol 2.5 MG/3 ML INH SOLN VIAL UPD (21:46)
[2019-04-07 22:16] VITALS: RESP 18; RESP 4; O2SAT 97
--- NOTE | 2019-04-07 22:39 | DI.VRAD_ITS ---
PROCEDURE INFORMATION: Exam: XR Chest, 2 Views Exam date and time: 04/07/2019 10:17 PM Clinical history: 78 years old, female; Other: Sob/wheeze TECHNIQUE: Imaging protocol: XR of the chest Views: 2 views. COMPARISON: CR CHEST 2 VIEWS PA,LAT 01/10/2016 7:44 AM FINDINGS: Lungs: Similar appearance of scarring and atelectasis in the lung bases with redemonstrated calcified nodule in the right lung base. No consolidation. Pleural space: Unremarkable. No pleural effusion. No pneumothorax. Heart/Mediastinum: Unremarkable. No cardiomegaly. Vasculature: Aortic atherosclerosis. Bones/joints: Chronic osseous changes. IMPRESSION: No acute findings. Dictated and Authenticated by: Lawrence Reynolds MD. Ordering:ASHLEY Fabian MD
[2019-04-07 22:59] VITALS: BP 128/61; PULSE 94; RESP 16; TEMP 36.7; O2SAT 94
== END 2019-04-07 22:56 | disposition home or self-care (01) ==
PROVIDERS: Emergency Provider Emergency Medicine; PCP Family Medicine
DX: J44.9 Chronic obstructive pulmonary disease, unspecified (principal); F17.210 Nicotine dependence, cigarettes, uncomplicated; F41.9 Anxiety disorder, unspecified
CPT/HCPCS: 93005; 94640; 99284; 71046; 93010; J7613; J7620

== ENCOUNTER 2020-01-22 12:37 | Observation (INO) | payer MEDICARE, SELFPAY ==
[2020-01-22] VITALS (69 sets, daily range): BP systolic 101–147; BP diastolic 46–97; PULSE 80–143; RESP 11–44; TEMP 36.3–37.2; O2SAT 78–100
--- NOTE | 2020-01-22 12:41 | RT.EKG_ITS ---
APPROVED REPORT Exam: Resting ECG Patient Location: E HR:88 bpm ECG Measurements Heart Rate 88 AXIS CO 146 P 72 QRSd 95 QRS 79 QT 356 T 85 QTc 432 <Conclusion> Sinus rhythm...normal P axis, V-rate 60- 99. No acute ST elevation or depression.
--- NOTE | 2020-01-22 12:56 | ED.GENADUL_ITS ---
Discharge Plan Disposition Patient Disposition: [facility] INPATIENT Condition: Stable Discharge Details Chief Complaint: SOB Clinical Impression: Pneumonia, Tachycardia, Dyspnea, Fatigue Admit Date/Time: 01/22/20 20:11 Admit Provider: Wilson Guillory Attending Provider: Wilson Guillory Primary Care Provider: Becca Quinones ED Provider: Antonia Hammonds Medical Decision Making 1300 -- 79-year-old female with history of COPD presents with shortness of marlin ath since 2 AM. EKG notes amiodarone, sinus with no acute ST ischemic changes. Diminished breath sounds throughout. Differential diagnosis includes COPD exacerbation, pneumonia, ACS. History and presentation not consistent with PE or dissection. Will check screening labs, chest x-ray, give DuoNeb and Solu-Medrol and reassess. 1430 --patient reassessed -denies any significant improvement. Still with diminished breath sounds throughout. Will change to portable chest x-ray. 172 --patient reassessed -she stated she felt better and her shortness of breath significantly improved but felt jittery after the albuterol. She was concerned about not eating anything yet. Heart rate ranged between 120s to 140s. Repeat EKG noted sinus tach at [address] findings. Patient was given something to drink and eat and additional IV fluids. Will repeat troponin and reassess. 182 --heart rate remains between 120s to 170s. She denies any acute complaints. Will give more fluids, CT chest and repeat an EKG. 1899 --CT chest notes possible RLL pneumonia. On reassessment, patient now relates that she fell 1 to 2 weeks ago onto her abdomen and is complaining of upper abdominal pain. She also hit her left shoulder, left hip and left leg but has no pain with range of motion in her left upper extremity, left hip and no bony deformity noted. Will refer for CT abdomen and pelvis to rule out any other acute abdominal findings. Will give a dose of Rocephin and Zithromax and admit for monitoring of heart rate, IV fluids and IV antibiotics. 1944 --discussed with hospitalist who accepts patient for admission. Heart rate low 100s and 110s. 1999 --CT abdomen and pelvis possible mild left-sided colitis but no other acute findings. Medical Records Medical records reviewed: Yes I reviewed the patient's medical records. Imaging Data Radiologic Study: Radiologist's impression: XR PORTABLE CHEST AP CLINICAL HISTORY: cough, sob, r/o acute disease TECHNIQUE: 2D digital imaging was performed. CR,XR XR CHEST 2V PA LATERAL from 04/07/2019 FINDINGS: LUNGS: There is a stable area scarring in the right middle lobe. Otherwise clear. No pleural abnormality seen. HEART: Heart appears mildly enlarged and the aorta is tortuous. MEDIASTINUM: Normal. Bones: Scoliosis and degenerative changes in the spine. IMPRESSION: No acute pulmonary findings. CT Angiography Chest With Contrast Exam date and time: 01/22/2020 6:56 PM Age: 79 years old Clinical indication: Shortness of breath and other: Tachycardic; Patient HX: Tachycardic, SOB TECHNIQUE: Imaging protocol: Computed tomographic angiography of the chest with intravenous contrast. 3D rendering: MIP and/or 3D reconstructed images were created by the technologist. COMPARISON: CR XR PORTABLE CHEST AP 01/22/2020 2:39 PM FINDINGS: Pulmonary arteries: Normal. No pulmonary emboli. Aorta: Unremarkable. No aortic aneurysm. No aortic dissection. Lungs: Mild right lower lobe atelectasis and pneumonitis. There is some minimal ground-glass change with focal patchy consolidation. Moderate to severe COPD. There is some bronchial opacification in the right lower lobe with bronchial wall thickening. Minimal left lower lobe changes noted. Pleural space: Unremarkable. No pneumothorax. No pleural effusion. Heart: Unremarkable. No cardiomegaly. No pericardial effusion. Lymph nodes: Unremarkable. No enlarged lymph nodes. Bones/joints: Moderate thoracic spondylosis. Soft tissues: Unremarkable. IMPRESSION: 1. COPD. Right lower lobe pneumonitis with mild consolidation. 2. No evidence for pulmonary embolus. 3. Mild bibasilar bronchitis, right worse than left. CT Abdomen And Pelvis With Contrast Exam date and time: 01/22/2020 7:33 PM Age: 79 years old Clinical indication: Abdominal pain; Generalized; Additional info: Fall x1week ago TECHNIQUE: Imaging protocol: Computed tomography of the abdomen and pelvis with intravenous contrast. Radiation optimization: All CT scans at this facility use at least one of these dose optimization techniques: automated exposure control; mA and/or kV adjustment per patient size (includes targeted exams where dose is matched to clinical indication); or iterative reconstruction. Contrast material: [id number]; Contrast volume: 87 ml; Contrast route: INTRAVENOUS (IV); COMPARISON: CT Private^ROUTINE ABDOMEN PELVIS WITH CONTRAST (Adult) 03/30/2018 10:43 AM FINDINGS: Lungs: The there is mild, patchy right lower lobe atelectasis and pneumonitis, slightly worse compared to previous exam. Heart: Calcifications at the level of the mitral annulus are unchanged. Mediastinal space: Small hiatal hernia again seen. Liver: Normal. No mass. Gallbladder and bile ducts: Gallbladder surgically absent. Previously noted biliary ectasia is less conspicuous on the current exam. Pancreas: Normal. No ductal dilation. Spleen: Normal. No splenomegaly. Adrenals: Normal. No mass. Kidneys and ureters: Normal. No hydronephrosis. Stomach and bowel: Diverticulosis without acute diverticulitis. There may be some mild, patchy wall thickening involving the descending colon and portions of the sigmoid colon. No significant adjacent inflammatory change evident. Appendix: No evidence of appendicitis. Intraperitoneal space: Unremarkable. No free air. No significant fluid collection. Vasculature: Moderate atherosclerotic change present in the vasculature. Lymph nodes: Unremarkable. No enlarged lymph nodes. Bladder: Unremarkable as visualized. Reproductive: Uterine calcifications consistent with old fibroid disease. Bones/joints: Left hip prosthesis. Moderate lumbar spondylosis. Soft tissues: Unremarkable. IMPRESSION: 1. No evidence for acute posttraumatic abnormality. 2. Possible mild left-sided colitis. Lab Data Lab results reviewed: Yes I reviewed the patient's lab results. Labs: Laboratory Tests Range/Units 01/22/20 01/22/20 01/22/20 13:00 13:00 17:35 WBC (4.4-10.8) 10^3/uL 12.46 H RBC (3.93-5.22) 10^6/uL 4.83 Hgb (11.2-15.7) g/dL 15.0 Hct (36.0-46.0) % 44.9 MCV (80-95) fL 93.0 MCH (27.0-33.0) pg 31.1 MCHC (32.0-36.0) % 33.4 RDW (11.7-14.6) % 13.2 Plt Count (130-400) 10^3/uL 249 MPV (8.0-11.0) fL 9.5 Immature Gran % 0.3 Neutrophils % 83.6 Lymphocytes % 11.1 Monocytes % 4.3 Eosinophils % 0.5 Basophils % 0.2 Absolute Neutrophils (1.2-6.7) 10^3/uL 10.42 H Absolute Lymphocytes (1.2-3.4) 10^3/uL 1.38 Absolute Monocytes (0.1-0.8) 10^3/uL 0.54 Absolute Eosinophils (0.0-0.7) 10^3/uL 0.06 Absolute Basophils (0.0-0.2) 10^3/uL 0.02 Sodium (136-145) mmol/L 139 Potassium (3.5-5.1) mmol/L 4.0 Chloride (98-107) mmol/L 102 Carbon Dioxide (21.0-32.0) mmol/L 26.6 Anion Gap (3-11) mmol/L 10.4 BUN (7-18) mg/dL 11 Creatinine (0.55-1.02) mg/dL 0.60 Estimated GFR/1.73 m2 (mL/min/1.73m2) >= 60.00 Glucose (74-106) mg/dL 91 Calcium (8.5-10.1) mg/dL 9.0 Magnesium (1.8-2.4) mg/dL 1.7 L Total Bilirubin (0.2-1.0) mg/dL 1.7 H AST (15-37) U/L 16 ALT (14-59) U/L 13 L Alkaline Phosphatase (46-116) U/L 77 Troponin I (<0.06) ng/mL < 0.05 < 0.05 Total Protein (6.4-8.2) g/dL 7.1 Albumin (3.4-5.0) g/dL 3.5 ECG Data Attestation: I personally reviewed and interpreted this ECG (s) as follows: Interpretation: #1 -- rate of 88, sinus, no acute ST elevation or depression. OK 146. QRS 95. QT 432 #2 -- rate of 122, sinus, no acute ST elevation or depression. OK 140. QRS 97. QT 466. HPI General Mode of arrival: ambulatory . Date/Time Provider Initiated Documentation: 01/22/20 12:39 . Limitations to Documentation: no limitations . Information obtained by: patient . HPI Narrative: Patient is a 79-year-old female with a history of COPD who presents with shortness of breath since 2 AM. She states she has a chronic smoker's cough and states this is no worse than usual. She denies any fever, chest pain, recent surgery, recent travel, leg pain or swelling. She states her appetite has been normal. She states she used her 3 usual inhalers this morning without relief. Related Data Home Medications Medication Instructions Recorded Confirmed albuterol sulfate 90 mcg/actuation 2 puff IH Q6H PRN #3 device 08/11/19 01/22/20 aerosol inhaler fluticasone propionate 110 2 puff INHALATION BID #3 inhaler 08/11/19 01/22/20 mcg/actuation HFA aerosol inhaler umeclidinium 62.5 mcg/actuation 1 inh INHALATION daily' #3 inhaler 08/11/19 01/22/20 blister powder for inhalation hydrocodone 5 mg-acetaminophen 325 1 tab PO TID PRN #90 tab-cap MDD 3 11/06/19 01/22/20 mg tablet tab Previous Rx's Medication Instructions Recorded albuterol sulfate 90 mcg/actuation 2 puff IH Q6H PRN #3 device 08/11/19 aerosol inhaler fluticasone propionate 110 2 puff INHALATION BID #3 inhaler 08/11/19 mcg/actuation HFA aerosol inhaler umeclidinium 62.5 mcg/actuation 1 inh INHALATION daily' #3 inhaler 08/11/19 blister powder for inhalation hydrocodone 5 mg-acetaminophen 325 1 tab PO TID PRN #90 tab-cap MDD 3 11/06/19 mg tablet tab Allergies Allergy/AdvReac Type Severity Reaction Status Date / Time nabumetone [From Relafen] AdvReac Intermediate GI UPSET Verified 01/22/20 12:51 General Stated Complaint: SOB TRAM: 3 Review of Systems All systems reviewed & are unremarkable except as noted in HPI and below Constitutional Constitutional: Reports as per HPI, Denies chills and Denies fever(s) Eyes Eyes: Denies blurry vision ENT Ears, Nose, Mouth, and Throat: Denies dizziness, Denies sore throat and Denies throat swelling Cardiovascular Cardiovascular: Denies chest pain and Reports dyspnea Respiratory Respiratory: Denies cough and Reports dyspnea Gastrointestinal Gastrointestinal: Denies abdominal pain, Denies diarrhea and Denies vomiting Genitourinary Genitourinary: Denies hematuria and Denies dysuria Musculoskeletal Musculoskeletal: Denies back pain and Denies numbness Integumentary/Breasts Skin/Breast: Denies lesions and Denies rash Neurologic Neurologic: Denies dizziness, Denies localized weakness and Denies numbness Allergic/Immunologic Allergic/Immunologic: Denies throat swelling [facility] Medical History (Updated 01/22/20 @ 20:49 by Antonia Hammonds DO) Acquired cyst of kidney (Inactive 05/23/05) Alcohol abuse (Inactive) Chronic obstructive lung disease (Chronic) Chronic pain syndrome (Chronic 01/14/18) Closed fracture of two ribs (Inactive 12/01/09) Diverticulitis of colon (Inactive 05/23/89) Electroencephalogram abnormality (Inactive 05/23/07) Hepatitis A virus infection (Inactive) Hyperlipidemia (Chronic) Pneumococcal pneumonia (Inactive 05/23/98) Viral meningitis (Inactive 12/21/05) Surgical History History of bilateral ligation of fallopian tubes (Inactive) History of colectomy (Inactive) Status post appendectomy (Inactive) Status post cholecystectomy (Inactive) Status post hip replacement (Inactive) Family History (Updated 08/12/19 @ 08:49 by Patricio Izaguirre) Mother , AGE 77 Cancer Father , AGE 64 Cancer Sister , AGE 62 Cancer Brother , AGE 70 Cancer Maternal Grandmother , AGE 80 Cancer Son No problems noted. Social History (Updated 08/12/19 @ 08:48 by Patricio Izaguirre) Smoking/Tobacco Use Status: Current every day Tobacco Type: cigarettes Years smoked: 50 Quit status: considering quitting Second Hand Exposure: Yes Alcohol Intake: current Alcohol Intake frequency: holidays/special occasions only Alcohol type: wine Drug use: Never Substance use type: does not use Caregiver/Support person: No Household members: none Housing: apartment Pets and animals: No Sexually active: Yes Current gender identity: male What is your relationship status?: How often do you talk on the phone with friends or family?: three or more times per week How often do you get together with friends or relatives?: three or more times per week How often do you attend restorationism or oriental orthodox services?: decline to answer Do you belong to any clubs or organized social groups?: no Panel score (0-1 are the most socially isolated patients): 1 Duration: 15-30 minutes/day Frequency: daily Jessa/Yazdanism: Anglican Special jessa needs: No Seatbelt use: always Drive intox or ride w/intox regional 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: No Do you feel safe at home: Yes Do you feel safe in your relationship?: Yes Exam Const General: cooperative and no acute distress Orientation: alert, awake and oriented x3 HENMT Head: normal to inspection Ears: hearing grossly normal bilaterally and external ears normal General nose exam: external nose normal Face and sinus: normal facial exam Mouth: mucous membranes dry Throat: posterior oropharynx normal Eyes General: appearance normal, both eyes and all related structures Eyelids: eyelids normal Pupils: PERRL EOM: EOM intact bilaterally Neck Neck: normal visual inspection Lymphatic: no lymphadenopathy noted Chest Chest: normal inspection of the chest Resp Effort & Inspection: normal respiratory effort and able to speak in complete sentences Auscultation: diminished lung sounds bilaterally throughout Cardio Rate: regular rate Rhythm: regular rhythm GI Inspection: normal to inspection Palpation: soft, not firm, no guarding, no hepatosplenomegaly, no masses and nontender Auscultation: normal bowel sounds Skin General skin exam: no rashes or lesions noted Neuro General: patient alert and patient awake Cognition: normal cognition Speech: speech normal Gait: normal gait Motor: muscle tone normal throughout Sensory Exam: no sensory deficits noted Extrem General: full ROM, capillary refill normal and no edema Other: Tenderness to palpation left anterior shoulder. Healing ecchymosis noted to left anterior leg. Full range of motion of left upper and lower extremity without deformity or pain. No pelvis instability. No tenderness palpation of left hip. Psych Appearance: grossly normal Mental Status: mental status grossly normal Speech and Movement: speech and movement normal Affect: normal affect Thought Process: normal Course Vital Signs Vital signs: Vital Signs Temperature 98.9 F 01/22/20 12:45 Pulse 93 H 01/22/20 12:45 Blood Pressure 134/69 01/22/20 12:45 Pulse Oximetry 95 01/22/20 12:45 Temperature 98.9 F 01/22/20 12:45 Temperature Source Oral 01/22/20 12:45 Pulse 93 H 01/22/20 12:45 Respiratory Effort 01/22/20 12:49 Blood Pressure 134/69 01/22/20 12:45 Blood Pressure Position Supine 01/22/20 12:45 Pulse Oximetry 95 01/22/20 12:45 Oxygen Delivery Method Room Air 01/22/20 12:45 Oxygen Flow Rate 0 01/22/20 12:45
[2020-01-22 13:16] LABS: Abs Immature Grans 0.04 10^3/uL (0.0-0.06); Absolute Basophil Count 0.02 10^3/uL (0.0-0.2); Absolute Eosinophil Count 0.06 10^3/uL (0.0-0.7); Absolute Lymphocyte Count 1.38 10^3/uL (1.2-3.4); Absolute Monocyte Count 0.54 10^3/uL (0.1-0.8); Absolute Neutrophil Count 10.42 10^3/uL (1.2-6.7); Basophils % 0.2; Eosinophils % 0.5; HCT 44.9 % (36.0-46.0); Immature Grans % 0.3; Lymphocytes % 11.1; MCH 31.1 pg (27.0-33.0); MCHC 33.4 % (32.0-36.0); MPV 9.5 fL (8.0-11.0); Monocytes % 4.3; Neutrophils % 83.6; Platelet Count 249 10^3/uL (130-400); RBC 4.83 10^6/uL (3.93-5.22); RDW 13.2 % (11.7-14.6); RDW-SD 45.1 fL; WBC 12.46 10^3/uL (4.4-10.8)
[2020-01-22 13:32] LABS: ALT 13 U/L (14-59); AST 16 U/L (15-37); Albumin 3.5 g/dL (3.4-5.0); Alkaline Phosphatase 77 U/L (46-116); Anion Gap 10.4 mmol/L (3-11); BUN 11 mg/dL (7-18); Bilirubin, Total 1.7 mg/dL (0.2-1.0); CO2 26.6 mmol/L (21.0-32.0); Chloride 102 mmol/L (98-107); Glucose 91 mg/dL (74-106); Magnesium 1.7 mg/dL (1.8-2.4); Sodium 139 mmol/L (136-145); Total Protein 7.1 g/dL (6.4-8.2)
[2020-01-22 13:33] LABS: Troponin I < 0.05 ng/mL (<0.06)
[2020-01-22] MEDS: methylPREDNISolone SUCC 125 MG VIAL IVP (13:41)
[2020-01-22] MEDS: Normal Saline 500 ML IV ×3 (13:42→19:07)
[2020-01-22] MEDS: Albuterol/Ipratropium 3 ML UPD VIAL UPD (13:55)
--- NOTE | 2020-01-22 14:30 | DI.RAD_ITS ---
EXAM: XR PORTABLE CHEST AP CLINICAL HISTORY: cough, sob, r/o acute disease TECHNIQUE: 2D digital imaging was performed. CR,XR XR CHEST 2V PA LATERAL from 04/07/2019 FINDINGS: LUNGS: There is a stable area scarring in the right middle lobe. Otherwise clear. No pleural abnorm ality seen. HEART: Heart appears mildly enlarged and the aorta is tortuous. MEDIASTINUM: Normal. Bones: Scoliosis and degenerative changes in the spine. IMPRESSION: No acute pulmonary findings. DATA REPOSITORY: RADIATION DOSE DELIVERED:
[2020-01-22] MEDS: Albuterol 2.5 MG/3 ML INH SOLN VIAL 5 MG UPD (14:38)
--- NOTE | 2020-01-22 17:00 | RT.EKG_ITS ---
APPROVED REPORT Exam: Resting ECG Patient Location: E HR:122 bpm ECG Measurements Heart Rate 122 AXIS MO 140 P 72 QRSd 97 QRS 82 QT 328 T -29 QTc 466 <Conclusion> Sinus tachycardia...rate> 99 Atrial premature complex...SV complex w/ short R-R interval Borderline T abnormalities, diffuse leads...T flat/neg. No acute ST elevation or depression.
--- NOTE | 2020-01-22 17:23 | NUR.NOTE ---
pt provided with meal tray Nursing Note:
[2020-01-22 18:07] LABS: Troponin I < 0.05 ng/mL (<0.06)
--- NOTE | 2020-01-22 18:30 | RT.EKG_ITS ---
APPROVED REPORT Exam: Resting ECG Patient Location: E HR:113 bpm ECG Measurements Heart Rate 113 AXIS RI 151 P 56 QRSd 95 QRS 81 QT 313 T -87 QTc 431 <Conclusion> Sinus tachycardia...rate> 99 Atrial premature complex...SV complex w/ short R-R interval Nonspecific T abnormalities, diffuse leads...T <-0.10mV, ant/lat/inf
--- NOTE | 2020-01-22 18:30 | DI.CT_ITS ---
EXAM: CT CHEST PE CTA CLINICAL HISTORY: tachycardiac, shortness of breath TECHNIQUE: FINDINGS: CT angiography of the chest was performed with bolus infusion of 61 cc of Omnipaque 350. Images obta ined through the upper abdomen show unremarkable appearance of visualized portions of liver, spleen, and pancreas. There are areas of localized atelectasis and/or consolidation at the right lung base. A vaguely nodu lar right basilar density is seen posterior 0 inferiorly follow-up CT suggested to exclude neoplastic disease. No mediastinal or hilar adenopathy. No pulmonary embolic disease. No thoracic aortic dis section or aneurysm. Tracheobronchial tree appears intact. IMPRESSION: Presumed right basilar atelectasis and/or consolidation. Follow-up CT recommended to exclude underly ing neoplastic disease. No evidence of pulmonary embolic disease.
[2020-01-22] MEDS: Normal Saline Flush 10 ML SYR IVP ×3 (19:03→23:26)
[2020-01-22] MEDS: Normal Saline - Diluent 50 ML VIAL IV ×2 (19:04→19:51)
[2020-01-22] MEDS: Omnipaque 350 MG/ML 100 ML BTL IJ ×2 (19:04→19:51)
--- NOTE | 2020-01-22 19:37 | DI.VRAD_ITS ---
PROCEDURE INFORMATION: Exam: CT Angiography Chest With Contrast Exam date and time: 01/22/2020 6:56 PM Age: 79 years old Clinical indication: Shortness of breath and other: Tachycardic; Patient HX: Tachycardic, SOB TECHNIQUE: Imaging protocol: Computed tomographic angiography of the chest with intravenous contrast. 3D rendering: MIP and/or 3D reconstructed images were created by the technologist. COMPARISON: CR XR PORTABLE CHEST AP 01/22/2020 2:39 PM FINDINGS: Pulmonary arteries: Normal. No pulmonary emboli. Aorta: Unremarkable. No aortic aneurysm. No aortic dissection. Lungs: Mild right lower lobe atelectasis and pneumonitis. There is some minimal ground-glass change with focal patchy consolidation. Moderate to severe COPD. There is some bronchial opacification in the right lower lobe with bronchial wall thickening. Minimal left lower lobe changes noted. Pleural space: Unremarkable. No pneumothorax. No pleural effusion. Heart: Unremarkable. No cardiomegaly. No pericardial effusion. Lymph nodes: Unremarkable. No enlarged lymph nodes. Bones/joints: Moderate thoracic spondylosis. Soft tissues: Unremarkable. IMPRESSION: 1. COPD. Right lower lobe pneumonitis with mild consolidation. 2. No evidence for pulmonary embolus. 3. Mild bibasilar bronchitis, right worse than left. Dictated and Authenticated by: Ting Ibarra MD. Ordering:CARLOS Knight MD
--- NOTE | 2020-01-22 19:56 | DI.CT_ITS ---
EXAM: CT ABDOMEN PELVIS W CLINICAL HISTORY: upper abd pain s/p fall, r/o acute process TECHNIQUE: CT CT CHEST PE CTA from 01/22/2020 FINDINGS: CT examination of the abdomen and pelvis was performed with 87 cc Omnipaque 350 following recent cont rast injection for chest CT a as well. Atelectatic and/or consolidative radiodensities again noted at right lung base, CT follow-up recommen ded. Mild biliary dilatation noted unchanged or less prominent from 2018. Prior cholecystectomy noted. P resumed large duodenal diverticulum. Liver and spleen otherwise unremarkable as is the pancreas. Abdominal aorta is of normal diameter. No major visceral branch abnormality seen. No gross evidence of bowel obstruction inflammation, appendix not visualized, no specific evidence of diverticulitis. Adrenals and kidneys unremarkable common no evidence of urinary tract obstruction. Large calcified uterine fibroids noted. IMPRESSION: No evidence of acute intra-abdominal process.
--- NOTE | 2020-01-22 20:07 | HPE_ITS ---
Date of service: 01/22/20 Time of Service: 20:10 Assessment and Plan Assessment and plan (1) Right lower lobe pneumonia: Start date: 01/22/20 Status: Acute Assessment and plan: This is a 79-year-old lady who presented to the emergency room with shortness of breath and was thought to have exacerbation of COPD did have findings on CT scan of the chest right lower lobe infiltrate. She was admitted for treatment of community-acquired pneumonia and COPD [facility]. She is a full code. She does live in assisted living facility. Qualifiers: Pneumonia type: due to unspecified organism Qualified Code(s): J18.9 - Pneumonia, unspecified organism (2) COPD exacerbation: Start date: 01/22/20 Status: Acute Assessment and plan: Patient is on chronic inhalers and does continue smoke. We will treat for COPD exacerbation with continued inhalers and IV Solu- Medrol. Consider prednisone wean at discharge. (3) Tachycardia: Start date: 01/22/20 Status: Acute Assessment and plan: Patient is having no chest pain and no increase in her troponins. She will be treated with metoprolol for apparent PSVT nost likely secondary to progressive lung disease. Her troponin will be rechecked in the morning. Consider outpatient further evaluation with at least echocardiogram. She is a full code. History of Present Illness History of Present Illness Chief Complaint: Shortness of breath Narrative: This is a 79-year-old lady who awakened with the morning of admission with shortness of breath. She has chronic smoker's cough and is on chronic inhaler therapy. She denies any production of sputum and did have a fall injuring her upper abdomen with slight right upper abdominal discomfort. Imaging in the ED revealed possible right lower lobe pneumonia the patient did have COPD exacerbation. She has some tachycardia with possible PSVT during her treatment in the ED and was admitted for observation and treatment of her pneumonia and tachyarrhythmia. See ED report for full history and review.She has no cardiac history and is on no antihypertensives or antiarrhythmic. Review of Systems Narrative: 13 point review of systems otherwise unrevealing or stable. [facility] Medical History Acquired cyst of kidney (Inactive 05/23/05) Alcohol abuse (Inactive) Chronic obstructive lung disease (Chronic) Chronic pain syndrome (Chronic 01/14/18) Closed fracture of two ribs (Inactive 12/01/09) Diverticulitis of colon (Inactive 05/23/89) Electroencephalogram abnormality (Inactive 05/23/07) Hepatitis A virus infection (Inactive) Hyperlipidemia (Chronic) Pneumococcal pneumonia (Inactive 05/23/98) Viral meningitis (Inactive 12/21/05) Surgical History History of bilateral ligation of fallopian tubes (Inactive) History of colectomy (Inactive) Status post appendectomy (Inactive) Status post cholecystectomy (Inactive) Status post hip replacement (Inactive) Family History Mother , AGE 77 Cancer Father , AGE 64 Cancer Sister , AGE 62 Cancer Brother , AGE 70 Cancer Maternal Grandmother , AGE 80 Cancer Son No problems noted. Social History Smoking/Tobacco Use Status: Current every day Tobacco Type: cigarettes Years smoked: 50 Quit status: considering quitting Second Hand Exposure: Yes Alcohol Intake: current Alcohol Intake frequency: holidays/special occasions only Alcohol type: wine Drug use: Never Substance use type: does not use Caregiver/Support person: No Household members: none Housing: apartment Pets and animals: No Sexually active: Yes Current gender identity: male What is your relationship status?: How often do you talk on the phone with friends or family?: three or more times per week How often do you get together with friends or relatives?: three or more times per week How often do you attend adventism or hinduism services?: decline to answer Do you belong to any clubs or organized social groups?: no Panel score (0-1 are the most socially isolated patients): 1 Duration: 15-30 minutes/day Frequency: daily Jessa/Restoration: Protestant Special jessa needs: No Seatbelt use: always Drive 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 or ride w/intox 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 Do you feel safe at home: Yes Do you feel safe in your relationship?: Yes Meds Home Medications and Allergies Home Medications Medication Instructions Recorded Confirmed Type albuterol sulfate 90 mcg/actuation 2 puff IH Q6H PRN #3 device 08/11/19 01/22/20 Rx aerosol inhaler fluticasone propionate 110 2 puff INHALATION BID #3 inhaler 08/11/19 01/22/20 Rx mcg/actuation HFA aerosol inhaler umeclidinium 62.5 mcg/actuation 1 inh INHALATION daily' #3 inhaler 08/11/19 01/22/20 Rx blister powder for inhalation hydrocodone 5 mg-acetaminophen 325 1 tab PO TID PRN #90 tab-cap MDD 3 11/06/19 01/22/20 Rx mg tablet tab Allergies Allergy/AdvReac Type Severity Reaction Status Date / Time nabumetone [From Relafen] AdvReac Intermediate GI UPSET Verified 01/22/20 12:51 Exam Narrative Exam Narrative: General: Patient is thin and in no acute distress. She is darkly tanned she is alert and oriented to person and place. HEENT: Normocephalic with eyes revealing pupils equal and reactive to light symmetrically, extraocular contact and sclera anicteric. Oral mucosa slightly dry with fair dentition. Neck: Supple without JVD. Lungs: Bronchovesicular breath sounds diffusely with no focalized rales or rhonchi. No expiratory wheeze. Slight increased expiratory phase. Back: Stooped posture with a CVA tenderness. Heart: Regular rate rhythm at the time of exam with occasional extrasystole. No murmur or gallop. court recording monitor revealed PSVT with rate 140-150 intermittently. Breast: Exam deferred. Abdomen: Normal contour, soft and nontender to palpation with no palpable hepatosplenomegaly. Patient is variably complained of abdominal pain in the ED. General/rectal: Exam deferred. Extremities: Without clubbing, cyanosis or pitting edema. Some OA changes of the joints. Skin: Darkly and with thinning and rough texture, no rashes noted. Warm and dry. Neuro: Cranial nerves II through XII grossly intact except for decreased hearing acuity. Motor and sensory grossly intact. Psych: Normal affect, no abnormal thought processes. Remote and recent memory appear grossly intact. Results Imaging Imaging Studies: Exam: CT Angiography Chest With Contrast Exam date and time: 01/22/2020 6:56 PM Age: 79 years old Clinical indication: Shortness of breath and other: Tachycardic; Patient HX: Tachycardic, SOB TECHNIQUE: Imaging protocol: Computed tomographic angiography of the chest with intravenous contrast. 3D rendering: MIP and/or 3D reconstructed images were created by the technologist. COMPARISON: CR XR PORTABLE CHEST AP 01/22/2020 2:39 PM FINDINGS: Pulmonary arteries: Normal. No pulmonary emboli. Aorta: Unremarkable. No aortic aneurysm. No aortic dissection. Lungs: Mild right lower lobe atelectasis and pneumonitis. There is some minimal ground-glass change with focal patchy consolidation. Moderate to severe COPD. There is some bronchial opacification in the right lower lobe with bronchial wall thickening. Minimal left lower lobe changes noted. Pleural space: Unremarkable. No pneumothorax. No pleural effusion. Heart: Unremarkable. No cardiomegaly. No pericardial effusion. Lymph nodes: Unremarkable. No enlarged lymph nodes. Bones/joints: Moderate thoracic spondylosis. Soft tissues: Unremarkable. IMPRESSION: 1. COPD. Right lower lobe pneumonitis with mild consolidation. 2. No evidence for pulmonary embolus. 3. Mild bibasilar bronchitis, right worse than left. Dictated and Authenticated by: Ting Ibarra MD. Labs Result diagrams: 01/22/20 13:00 01/22/20 13:00 Labs: Laboratory Results - last 24 hr 01/22/20 01/22/20 01/22/20 13:00 13:00 17:35 WBC 12.46 H RBC 4.83 Hgb 15.0 Hct 44.9 MCV 93.0 MCH 31.1 MCHC 33.4 RDW 13.2 Plt Count 249 MPV 9.5 Immature Gran % 0.3 Neutrophils % 83.6 Lymphocytes % 11.1 Monocytes % 4.3 Eosinophils % 0.5 Basophils % 0.2 Absolute Neutrophils 10.42 H Absolute Lymphocytes 1.38 Absolute Monocytes 0.54 Absolute Eosinophils 0.06 Absolute Basophils 0.02 Sodium 139 Potassium 4.0 Chloride 102 Carbon Dioxide 26.6 Anion Gap 10.4 BUN 11 Creatinine 0.60 Estimated GFR/1.73 m2 >= 60.00 Glucose 91 Calcium 9.0 Magnesium 1.7 L Total Bilirubin 1.7 H AST 16 ALT 13 L Alkaline Phosphatase 77 Troponin I < 0.05 < 0.05 Total Protein 7.1 Albumin 3.5 Last Vital Signs Temp 36.8 C 01/22/20 19:04 Pulse 108 H 01/22/20 19:05 Resp 18 01/22/20 19:05 BP 101/62 01/22/20 19:05 Pulse Ox 94 L 01/22/20 19:05 COVID-19 Screening Have you,or household,traveled outside [place] in last 14 days?: No Had IN PERSON contact w/suspected or confirmed C-19 person: No
--- NOTE | 2020-01-22 20:23 | NUR.NOTE ---
REFERAL FAXED TO SURGERY 01/22/20Nursing Note:
--- NOTE | 2020-01-22 20:24 | NUR.NOTE ---
Nursing Note: REFERAL IN CHART BY MISTAKE
[2020-01-22] MEDS: cefTRIAXone 1 GM/50 ML BAG IVPB (20:35)
--- NOTE | 2020-01-22 20:39 | DI.VRAD_ITS ---
PROCEDURE INFORMATION: Exam: CT Abdomen And Pelvis With Contrast Exam date and time: 01/22/2020 7:33 PM Age: 79 years old Clinical indication: Abdominal pain; Generalized; Additional info: Fall x1week ago TECHNIQUE: Imaging protocol: Computed tomography of the abdomen and pelvis with intravenous contrast. Radiation optimization: All CT scans at this facility use at least one of these dose optimization techniques: automated exposure control; mA and/or kV adjustment per patient size (includes targeted exams where dose is matched to clinical indication); or iterative reconstruction. Contrast material: [id number]; Contrast volume: 87 ml; Contrast route: INTRAVENOUS (IV); COMPARISON: CT Private^ROUTINE ABDOMEN PELVIS WITH CONTRAST (Adult) 03/30/2018 10:43 AM FINDINGS: Lungs: The there is mild, patchy right lower lobe atelectasis and pneumonitis, slightly worse compared to previous exam. Heart: Calcifications at the level of the mitral annulus are unchanged. Mediastinal space: Small hiatal hernia again seen. Liver: Normal. No mass. Gallbladder and bile ducts: Gallbladder surgically absent. Previously noted biliary ectasia is less conspicuous on the current exam. Pancreas: Normal. No ductal dilation. Spleen: Normal. No splenomegaly. Adrenals: Normal. No mass. Kidneys and ureters: Normal. No hydronephrosis. Stomach and bowel: Diverticulosis without acute diverticulitis. There may be some mild, patchy wall thickening involving the descending colon and portions of the sigmoid colon. No significant adjacent inflammatory change evident. Appendix: No evidence of appendicitis. Intraperitoneal space: Unremarkable. No free air. No significant fluid collection. Vasculature: Moderate atherosclerotic change present in the vasculature. Lymph nodes: Unremarkable. No enlarged lymph nodes. Bladder: Unremarkable as visualized. Reproductive: Uterine calcifications consistent with old fibroid disease. Bones/joints: Left hip prosthesis. Moderate lumbar spondylosis. Soft tissues: Unremarkable. IMPRESSION: 1. No evidence for acute posttraumatic abnormality. 2. Possible mild left-sided colitis. Dictated and Authenticated by: Ting Ibarra MD. Ordering:CARLOS Knight MD
[2020-01-22] MEDS: Normal Saline 1,000 ML 125 ML IV (20:42)
[2020-01-22] MEDS: AZITHROMYCIN 500 MG in Normal Saline 250 ML 250 MG IVPB (22:30)
[2020-01-22] MEDS: Heparin 5,000 UNITS/ML VIAL 5000 UNITS SC (22:33)
[2020-01-22] MEDS: methylPREDNISolone SUCC 40 MG VIAL 80 MG IVP (23:24)
[2020-01-22 23:48] LABS: TSH (W/Ref FT4) 0.68 uIU/mL (0.36-3.74)
[2020-01-22] MEDS: MAGNESIUM SULFATE 2 GM/50 ML BAG IVPB (23:59)
[2020-01-23] MEDS: Metoprolol 25 MG TAB PO ×2 (00:49→09:31)
[2020-01-23 01:30] VITALS: BP 113/67; PULSE 76; RESP 18; TEMP 35.8; O2SAT 93
[2020-01-23] MEDS: Normal Saline 1,000 ML 125 ML IV ×2 (03:18→11:31)
[2020-01-23 05:20] VITALS: BP 118/66; PULSE 69; RESP 18; TEMP 36; O2SAT 95
[2020-01-23] MEDS: methylPREDNISolone SUCC 40 MG VIAL 80 MG IVP ×2 (05:28→13:42)
[2020-01-23] MEDS: Heparin 5,000 UNITS/ML VIAL 5000 UNITS SC ×2 (05:28→13:41)
[2020-01-23 06:17] LABS: Abs Immature Grans 0.05 10^3/uL (0.0-0.06); Absolute Basophil Count 0.01 10^3/uL (0.0-0.2); Absolute Lymphocyte Count 0.82 10^3/uL (1.2-3.4); Absolute Monocyte Count 0.06 10^3/uL (0.1-0.8); Basophils % 0.1; HCT 43.2 % (36.0-46.0); HGB 14.4 g/dL (11.2-15.7); Immature Grans % 0.6; Lymphocytes % 9.9; MCHC 33.3 % (32.0-36.0); MCV 93.1 fL (80-95); MPV 9.8 fL (8.0-11.0); Monocytes % 0.7; Neutrophils % 88.7; Platelet Count 227 10^3/uL (130-400); RBC 4.64 10^6/uL (3.93-5.22); RDW 13.1 % (11.7-14.6); RDW-SD 44.7 fL; WBC 8.26 10^3/uL (4.4-10.8)
[2020-01-23 06:27] LABS: Absolute Neutrophil Count 7.33 10^3/uL (1.2-6.7)
[2020-01-23 06:32] LABS: Magnesium 2.5 mg/dL (1.8-2.4)
[2020-01-23 06:36] LABS: ALT 11 U/L (14-59); AST 12 U/L (15-37); Alkaline Phosphatase 72 U/L (46-116); Anion Gap 10.6 mmol/L (3-11); BUN 8 mg/dL (7-18); Bilirubin, Total 1.1 mg/dL (0.2-1.0); CO2 25.4 mmol/L (21.0-32.0); CREATININE 0.64 mg/dL (0.55-1.02); Calcium 8.5 mg/dL (8.5-10.1); Chloride 106 mmol/L (98-107); Glucose 163 mg/dL (74-106); Potassium 3.8 mmol/L (3.5-5.1); Sodium 142 mmol/L (136-145); Total Protein 6.4 g/dL (6.4-8.2)
[2020-01-23 06:47] LABS: Troponin I < 0.05 ng/mL (<0.06)
[2020-01-23 07:06] VITALS: BP 123/73; PULSE 69; RESP 18; TEMP 36.1; O2SAT 96
[2020-01-23] MEDS: Azithromycin 250 MG TAB 500 MG PO (07:57)
[2020-01-23] MEDS: Umeclidinium 7 CAP INHALER 1 CAP IH (09:09)
[2020-01-23] MEDS: Mometasone 220 MCG 14 DOSE INHALER IH (09:16)
[2020-01-23 11:26] VITALS: BP 102/54; PULSE 69; RESP 18; TEMP 36.4; O2SAT 95
[2020-01-23 13:02] LABS: COVID-19 RT-PCR UVMMC Result Negative (Negative)
--- NOTE | 2020-01-23 13:31 | PHA.REVIEW ---
Pharmacy Admission Review - Admission Clinical Review (Last Reviewed 01/23/20 @ 03:33 by Wilson Guillory) Pneumonia (Acute) Tachycardia (Acute) Dyspnea (Acute) Fatigue (Acute) Tachycardia (Acute) COPD exacerbation (Acute) Right lower lobe pneumonia (Acute) nabumetone [From Relafen] Adverse Reaction (Intermediate, Verified 01/22/20 12:51) GI UPSET Height 5 ft 6 in Weight 65.1 kg Observation patient, Pneumonia and COPD exacerbation - Renal Dosing Renal Dosing: BUN 8 mg/dL (7-18) 01/23/20 05:45 Creatinine 0.64 mg/dL (0.55-1.02) 01/23/20 05:45 Medications needing adjustments: Reviewed (CrCl~55ml/min-no med adjustments needed) - Anticoagulation Anticoagulation: Hgb 14.4 g/dL (11.2-15.7) 01/23/20 05:45 Hct 43.2 % (36.0-46.0) 01/23/20 05:45 Plt Count 227 10^3/uL (130-400) 01/23/20 05:45 Creatinine 0.64 mg/dL (0.55-1.02) 01/23/20 05:45 DVT Prohphylaxis: Reviewed Medications: Heparin Therapeutic Anticoagulation: N/A - Opiate Usage Evaluate Pain Scale/Pains Meds: Reviewed ([place]-not using) Scheduled Bowel Reg ordered if on Opiates?: No (Docusate, Miralax-prn) - Relevant Labs Sodium 142 mmol/L (136-145) 01/23/20 05:45 Potassium 3.8 mmol/L (3.5-5.1) 01/23/20 05:45 Chloride 106 mmol/L (98-107) 01/23/20 05:45 Magnesium 2.5 mg/dL (1.8-2.4) H 01/23/20 05:45 Electrolytes, C-Reactive P, ESR: Reviewed (within normal limits) - DM Control DM Control: Glucose 163 mg/dL (74-106) H 01/23/20 05:45 Insulin Dosing: N/A - Heart Failure/DC Heart Failure/DC: Troponin I < 0.05 ng/mL (<0.06) 01/23/20 05:45 EF%, YARA's, B-Blockers, Diuretics: Reviewed (Metoprolol, Troponin's negative x3) - BP Control BP Control: Blood Pressure 102/54 Blood Pressure 123/73 Blood Pressure 118/66 If elevated: N/A - Qtc Review If Elevated: Reviewed (QTC 431-no concerning meds) - IV to PO Switch IV Medications: Reviewed (Solu-medrol IV, IV Rocephin) - Home Meds Home Med List reviewed: Reviewed (Flovent substituted with Asmanex) - Current meds Current Medication Order Review: Reviewed Antibiotic Activity - Pharmacy Antibiotic Review Pharmacy Antibiotic Activity: Reviewed, no change (day#2 Ceftriaxone and oral Azithromax)
[2020-01-23] MEDS: Normal Saline Flush 10 ML SYR IVP (13:42)
--- NOTE | 2020-01-23 14:02 | INITIAL_ITS ---
- If Service Date Differs Date of service: 01/23/20 Time of Service: 14:02 Care Management Initial Assess REASON FOR HOSPITALIZATION:: Right lower lobe pneumonia PAST MEDICAL HISTORY/PAST SURGICAL HISTORY:: Acquired cyst of kidney (Inactive 05/23/05). Alcohol abuse (Inactive). Chronic obstructive lung disease (Chronic). Chronic pain syndrome (Chronic 01/14/18). Closed fracture of two ribs (Inactive 12/01/09). Diverticulitis of colon (Inactive 05/23/89). Electroencephalogram abnormality (Inactive 05/23/07). Hepatitis A virus infection (Inactive). Hyperlipidemia (Chronic). Pneumococcal pneumonia (Inactive 05/23/98). Viral meningitis (Inactive 12/21/05). Surgical History . History of bilateral ligation of fallopian tubes (Inactive). History of colectomy (Inactive). Status post appendectomy (Inactive). Status post cholecystectomy (Inactive). Status post hip replacement (Inactive) PREVIOUS FUNCTIONAL STATUS/SOCIAL/FAMILY SUPPORTS:: Carolyn lives at the [facility] she has a hospice community liaison through [facility]. She states that she is indepedent, she has a 4WW and has her own transporation. She has been staying at her [facility] for the summer and states this is her camp in [place]. CURRENT FUNCTIONAL STATUS:: Carolyn is alert and active in the room. She does not want to be in the hospital she states she has a friend that is going to stay with her. She is impulsive and has a difficult time sitting still. She wraps herself in her IV line several times trying to get herself dressed. She states she does not like to be in the hospital and wants to return home. She recently loss her son here at [facility] she states she is managing her grief. She has [place] staying in his trail which she reports has mold. She feel that is may be affecting her breathing and she has decided to return to the [facility] for now. 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 PRIMARY CARE PHYSICIAN:: Becca Quinones POTENTIAL DISCHARGE NEEDS:: Carolyn will need to have close follow up with her primary care provider after discharge. PATIENT/FAMILY EDUCATION NEEDS:: Discharge education, limitations and follow up plan of care including ask me three and self management. ANTICIPATED BARRIERS TO DISCHARGE:: No barriers identified TRANSPORTATION:: Via private car with friend. PLAN:: Carolyn is recieving IV abx and steroids treatment for pneumonia. She will be switched over to oral treatment and discharged home today. Carolyn will stop with her friend on the way home to obtain her medications.
--- NOTE | 2020-01-23 14:24 | DSE_ITS ---
Date of service: 01/23/20 Time of Service: 14:24 DS: Diagnosis Discharge Diagnosis (1) Right lower lobe pneumonia: Status: Acute (2) COPD exacerbation: Status: Acute (3) Tachycardia: Status: Acute Discharge Plan Disposition Patient Disposition: HOME Condition: Stable Discharge Details Chief Complaint: SOB Clinical Impression: Pneumonia, Tachycardia, Dyspnea, Fatigue Reason For Visit: R LWR LOBE PNEUMONIA,COPD EXACERBATION,TACHYCARDIA Admit Date/Time: 01/22/20 20:11 Admit Provider: Wilson Guillory Attending Provider: Wilson Guillory Primary Care Provider: Becca Quinones ED Provider: Antonia Hammonds Hospital Course Hospital Course: This is a 79-year-old lady who awakened with the morning of admission with shortness of breath. She has chronic smoker's cough and is on chronic inhaler therapy. She denies any production of sputum and did have a fall injuring her upper abdomen with slight right upper abdominal discomfort. She reports she had been staying at her recently son's camp that has mold present. Imaging in the ED revealed possible right lower lobe pneumonia the patient did have COPD exacerbation. She has some tachycardia with possible PSVT during her treatment in the ED and was admitted for observation and treatment of her pneumonia and tachyarrhythmia. Covid test negative The following day she felt better. Was ambulating in her room with standby assistance. She is adamant that she would like to discharge. Her O2 saturations are normal on RA. She has had no fever, no arrhythmias or CP. She will finish a 3 day course of azithromycin, begin Augmentin on 8 for 7 days, complete a burst of prednisone and continue metoprolol that was initiated during this stay. Follow-up with her PCP in 1-2 weeks. Outpt echocardiogram to be arranged. Home Meds and New Rx's Prescriptions: New azithromycin 250 mg Tablet 500 mg PO DAILY Qty: 3 RF: 0 metoprolol tartrate 25 mg Tablet 25 mg PO Q8H Qty: 30 RF: 0 amoxicillin-pot clavulanate [Augmentin] 875-125 mg tablet 1 tab PO BID Qty: 14 RF: 0 prednisone 10 mg tablet 30 mg PO DAILY Qty: 9 RF: 0 Continued albuterol sulfate [Ventolin HFA] 90 mcg/actuation HFA aerosol inhaler 2 puff IH Q6H PRN (Reason: shortness of breath or wheezing) Qty: 3 RF: 4 Incruse Ellipta 62.5 mcg/actuation blister with device 1 inh Inhalation daily' Qty: 3 RF: 4 Flovent HFA 110 mcg/actuation HFA aerosol inhaler 2 puff Inhalation BID Qty: 3 RF: 4 hydrocodone-acetaminophen 5-325 mg tablet 1 tab PO TID MDD 3 tab PRN (Reason: pain) Qty: 90 RF: 0 Discharge Instructions Instructions: Chronic Lung Disease and Infection Prevention (DC) Stand Alone Forms: Nursing Discharge Form Referrals: Becca Quinones [employer] HELPER [Primary Care Provider] - (Please call the office on Saturday morning to schedule an appointment to be seen within 2 weeks) Activity:: Activity as Tolerated Equipment/Supplies:: No Equipment Needed Diet:: As Tolerated Discharge Orders Discharge Orders: Discharge Order (Routine); Ordered 01/23/20 Ordered By: Ari Ruelas Other Ambulatory Orders: US echocardiogram (Routine) Location: None Selected Ordered By: Ari Ruelas DS: Summary Status at Discharge Functional status at discharge: independent ambulation Overall status at discharge: patient is progressing back to baseline Mental Status: mental status grossly normal Speech and Movement: speech and movement normal and restless Mood: anxious mood Affect: normal affect Exam Const General: cooperative Nutritional Appearance: average body habitus Orientation: alert and oriented x3 Neck Neck: normal visual inspection and no JVD Resp Effort & Inspection: normal respiratory effort Auscultation: bronchial breath sounds and diminished lung sounds Cardio Rate: regular rate Rhythm: regular rhythm Heart Sounds: S1 normal and S2 normal GI Inspection: normal to inspection Palpation: soft Percussion: normal to percussion Neuro General: patient alert and moves all extremities Cognition: normal cognition Speech: speech normal Gait: normal gait Extrem General: no clubbing, cyanosis or edema Psych Mental Status: mental status grossly normal Speech and Movement: speech and movement normal and restless Mood: anxious mood Affect: normal affect DS: Data Vitals/I&O Vitals and I&O: Vital Signs Temperature 36.4 C L 01/23/20 11:26 Temperature Source Tympanic 01/23/20 11:26 Pulse 69 01/23/20 11:26 Pulse Rhythm Regular 01/23/20 08:04 Pulse 105 H 01/22/20 19:40 Respiratory Rate 18 01/23/20 11:26 Respiratory Effort Short of Breath 01/23/20 08:04 Respiratory Depth Normal 01/23/20 08:04 Respiratory Pattern Normal 01/23/20 08:04 Blood Pressure 102/54 L 01/23/20 11:26 Blood Pressure Mean 73 01/22/20 19:31 Blood Pressure Position Supine 01/22/20 12:45 Pulse Oximetry 95 01/23/20 11:26 Oxygen Delivery Method Room Air 01/23/20 11:26 Oxygen Flow Rate 0 01/23/20 11:26 Pain Level 0 01/23/20 07:06 Comment 01/23/20 01:30 Intake & Output 01/22/20 01/23/20 01/23/20 23:59 11:59 23:59 Intake Total 1999 / 1999 2525 / 2525 Output Total 300 / 300 1200 / 1200 Balance 1700 / 1700 1325 / 1325 Weight 61.235 kg 65.1 kg Intake: IV 1800 / 1800 1825 / 1825 Oral 200 / 200 700 / 700 Output: Urine 300 / 300 1200 / 1200 Other: Urine Color Light Kianna Yellow Urine Appearance Clear Clear Urine Odor Normal None Stool Characteristics Soft Formed Voiding Methods Toilet Toilet Data Completed and Pending Labs on day of discharge: Labs from last 24 hours 01/23/20 01/23/20 01/23/20 05:45 05:45 05:45 WBC 8.26 D RBC 4.64 Hgb 14.4 Hct 43.2 MCV 93.1 MCH 31.0 MCHC 33.3 RDW 13.1 Plt Count 227 MPV 9.8 Immature Gran % 0.6 Neutrophils % 88.7 Lymphocytes % 9.9 Monocytes % 0.7 Eosinophils % 0.0 Basophils % 0.1 Absolute Neutrophils 7.33 H Absolute Lymphocytes 0.82 L Absolute Monocytes 0.06 L Absolute Eosinophils 0.00 Absolute Basophils 0.01 Sodium 142 Potassium 3.8 Chloride 106 Carbon Dioxide 25.4 Anion Gap 10.6 BUN 8 Creatinine 0.64 Estimated GFR/1.73 m2 >= 60.00 Glucose 163 H Calcium 8.5 Magnesium 2.5 H Total Bilirubin 1.1 H AST 12 L ALT 11 L Alkaline Phosphatase 72 Troponin I Total Protein 6.4 Albumin 3.0 L TSH COVID-19 PCR Nasopharyn COVID-19 PCR Ref Test Perform Site 01/23/20 01/22/2020 05:45 21:00 17:35 WBC RBC Hgb Hct MCV MCH MCHC RDW Plt Count MPV Immature Gran % Neutrophils % Lymphocytes % Monocytes % Eosinophils % Basophils % Absolute Neutrophils Absolute Lymphocytes Absolute Monocytes Absolute Eosinophils Absolute Basophils Sodium Potassium Chloride Carbon Dioxide Anion Gap BUN Creatinine Estimated GFR/1.73 m2 Glucose Calcium Magnesium Total Bilirubin AST ALT Alkaline Phosphatase Troponin I < 0.05 Total Protein Albumin TSH 0.68 COVID-19 PCR Negative Nasopharyn COVID-19 PCR Not Applicable Ref Test [facility] 01/22/20 17:35 WBC RBC Hgb Hct MCV MCH MCHC RDW Plt Count MPV Immature Gran % Neutrophils % Lymphocytes % Monocytes % Eosinophils % Basophils % Absolute Neutrophils Absolute Lymphocytes Absolute Monocytes Absolute Eosinophils Absolute Basophils Sodium Potassium Chloride Carbon Dioxide Anion Gap BUN Creatinine Estimated GFR/1.73 m2 Glucose Calcium Magnesium Total Bilirubin AST ALT Alkaline Phosphatase Troponin I < 0.05 Total Protein Albumin TSH COVID-19 PCR Nasopharyn COVID-19 PCR Ref Test Perform Site [facility] Medical History Acquired cyst of kidney (Inactive 05/23/05) Alcohol abuse (Inactive) Chronic obstructive lung disease (Chronic) Chronic pain syndrome (Chronic 01/14/18) Closed fracture of two ribs (Inactive 12/01/09) Diverticulitis of colon (Inactive 05/23/89) Electroencephalogram abnormality (Inactive 05/23/07) Hepatitis A virus infection (Inactive) Hyperlipidemia (Chronic) Pneumococcal pneumonia (Inactive 05/23/98) Viral meningitis (Inactive 12/21/05) Surgical History History of bilateral ligation of fallopian tubes (Inactive) History of colectomy (Inactive) Status post appendectomy (Inactive) Status post cholecystectomy (Inactive) Status post hip replacement (Inactive) Family History Mother , AGE 77 Cancer Father , AGE 64 Cancer Sister , AGE 62 Cancer Brother , AGE 70 Cancer Maternal Grandmother , AGE 80 Cancer Son No problems noted. Social History Smoking/Tobacco Use Status: Current every day Tobacco Type: cigarettes Years smoked: 50 Quit status: considering quitting Second Hand Exposure: Yes Alcohol Intake: current Alcohol Intake frequency: holidays/special occasions only Alcohol type: wine Drug use: Never Substance use type: does not use Caregiver/Support person: No Household members: none Housing: apartment Pets and animals: No Sexually active: Yes Current gender identity: male What is your relationship status?: How often do you talk on the phone with friends or family?: three or more times per week How often do you get together with friends or relatives?: three or more times per week How often do you attend scientologist or buddhism services?: decline to answer Do you belong to any clubs or organized social groups?: no Panel score (0-1 are the most socially isolated patients): 1 Duration: 15-30 minutes/day Frequency: daily Jessa/Holiness: Religion Special jessa needs: No Seatbelt use: always Drive intox or ride w/intox airport shuttle driver: No Do you feel safe at home: Yes Do you feel safe in your relationship?: Yes
== END 2020-01-23 15:09 | disposition home or self-care (01) ==
LOC: ER 20:49 → MS 21:11
PROVIDERS: Admitting Provider Family Medicine; Emergency Provider Physician Assistant; PCP Nurse Practitioner; Visit Provider Family Medicine
DX: J18.9 Pneumonia, unspecified organism (principal); J44.0 Chronic obstructive pulmonary disease with (acute) lower respiratory infection; J44.1 Chronic obstructive pulmonary disease with (acute) exacerbation; R00.0 Tachycardia, unspecified; R06.02 Shortness of breath; Z79.899 Other long term (current) drug therapy; G89.4 Chronic pain syndrome; E78.5 Hyperlipidemia, unspecified; F17.210 Nicotine dependence, cigarettes, uncomplicated
CPT/HCPCS: 36415; 71275; 80053; 93005; 94640; 96361; 96365; 96375; 99217; 99220; 99285; U0003; 71045; 74177; 83735; 84443; 84484; 85025; 93010; G0378; J0456; J0696; J1644; J2930; J3490; J7613; J7620

== ENCOUNTER 2020-01-28 01:20 | Outpatient (CLI) | payer MEDICARE, SELFPAY ==
--- NOTE | 2020-01-28 09:20 | DI.US_ITS ---
APPROVED REPORT EXAM: Comprehensive 2D, Doppler, and color-flow Echocardiogram Patient Location: Out-Patient Transcription: Svitlana Hernandez RDCS (AE) Indications: Tachycardia, COPD, Smoker Other Information Study Quality: Fair Conclusion Left Ventricle : The left ventricle is normal size. The left ventricular systolic function is normal. The left ventricular ejection fraction is within the normal range. There is normal left ventricular wall thickness. There is normal LV segmental wall motion. The left ventricular diastolic function is normal. LVEF is 60-65%. Right Ventricle : The right ventricle is normal size. The right ventricular systolic function is norm al. The RVSP is 39.4mmHg. Atria : The left atrium size is normal. The right atrium size is normal. Mitral Valve : Mild mitral annular calcification. No evidence of mitral valve stenosis. Mild mitral r egurgitation. Great Vessels : The aortic root is normal in size. IVC is normal in size and collapses >50% with insp iration. The ascending aorta is moderately dilated (3.6). Aortic arch is not well visualized. Wall motion Left Ventricle The left ventricle is normal size. The left ventricular systolic function is normal. The left ventric ular ejection fraction is within the normal range. There is normal left ventricular wall thickness. T here is normal LV segmental wall motion. The left ventricular diastolic function is normal. There is no ventricular septal defect visualized. LVEF is 60-65%. Right Ventricle The right ventricle is normal size. The right ventricular systolic function is normal. The RVSP is 39 .4mmHg. Atria The left atrium size is normal. The right atrium size is normal. The interatrial septum is intact wit h no evidence for an atrial septal defect. Aortic Valve The Aortic valve is sclerotic. Aortic valve is trileaflet. There is no aortic valvular stenosis. No a ortic regurgitation is present. Mitral Valve Mild mitral annular calcification. No evidence of mitral valve stenosis. Mild mitral regurgitation. Tricuspid Valve The tricuspid valve is normal in structure. There is no tricuspid valve stenosis. Mild tricuspid regu rgitation. Pulmonic Valve The pulmonary valve is normal in structure. There is no pulmonic valvular stenosis. There is no pulmo cleve valvular regurgitation. Great Vessels The aortic root is normal in size. The ascending aorta is moderately dilated (3.6). Aortic arch is no t well visualized. IVC is normal in size and collapses >50% with inspiration. Pericardium There is no pericardial effusion. 2D Dimensions IVSD d PLAX 0.95 cm F: 0.6-1.0 LV Vol A2C d MOD 70.9 mL LVPW d PLAX 0.92 cm F: 0.6 - 1.0 LV Vol A4C d MOD 69.9 mL LVID d PLAX 4.68 cm F: 3.8 - 5.2 LA vol/ BSA A2C s A-L 25.9 mL/m2 LVDs 3.30 cm F: 2.2 - 3.5 LA vol/ BSA A4C s A-L 22.7 mL/m2 Ao Root d 3.04 cm F: 2.7 - 3.3 LA Vol/ BSA Biplane s A-L 24.7 mL/m2 RA Area A4C 11.50 cm2 LA Area A4C s MOD 15.53 cm2 RA Vol/ BSA A4C s A-L 16.3 mL/m2 LA Area A2C s MOD 16.28 cm2 Ao Asc Diam d 3.57 cm F: 2.3 - 3.1 LV EF A4C MOD 64.2 % LV EF Teichholz 56.2 % LV EF A2C MOD 61.5 % LVEF (Ceja's) 63.14 % F: 54 - 74 LV EF Biplane MOD 63.1 % LV Volume 58.57 mL F: 46 - 106 SV 46.68 mL LV Volume Index 34.25 mL/m2 F: 29 - 61 SV Index 27.28 mL/m2 LV Vol Biplane MOD 73.9 mL FS 29.30 % M-Mode TAPSE 2.93 cm (M/F) >1.7 LV Diastology MV E' medial 0.092 (>0.07 m/s) E/A Ratio 0.7 LV E/e MED 7.90 (<14) MV E Vmax 0.73 (0.4-1.3 m/s) MV E' lateral 0.083 (>0.1 m/s) MV A Vmax 1.05 (0.4-1.3 m/s) LV E/e LAT 8.70 (<14) MV E/A Ratio 0.69 MV E/E' medial 7.92 MV E/E' lateral 8.73 Aortic Valve LVOT Area 3.09 cm2 AoV Area Vmax 2.77 cm2 LVOT Vmax 1.16 m/s AoV Area/ BSA (Vmax) 1.62 cm2/m2 LVOT Mean Marlon. 0.80 m/s JOHN Mean Marlon. 3.05 cm2 LVOT Peak Grad 5.4 mmHg JOHN Mean Marlon. Index 1.78 cm2/m2 LVOT Mean Grad 3.0 mmHg LVOT VTI 0.237 m LVOT Diam s 1.95 cm AoV Vmax 1.30 m/s Velocity Ratio 0.89 AoV Mean Marlon. 0.82 m/s AoV Peak Grad 6.8 mmHg LVOT SV 73.16 mL AoV Mean Grad 3.1 mmHg AoV VTI 0.267 m AoV Area VTI 2.74 cm2 AoV Area/ BSA (VTI) 1.60 cm/m2 Mitral Valve MV DT 338 (160-240 msec) MR Vmax 4.89 m/s MV PHT 98 msec MR VTI 1.324 m MV Area PHT 2.24 cm2 MR Peak Grad 95.6 mmHg MV VTI 0.338 m MR Mean Grad 78.4 mmHg MV Area VTI 2.16 (4.0-6.0 cm2) Pulmonary Valve PV Vmax 0.97 (0.5-1.5 m/s) RVOT Peak Gr. 1.71 mmHg PV Peak Grad 3.8 mmHg RVOT Mean Gr. 1.05 mmHg PV Mean Grad 2.3 mmHg RVOT VTI 0.124 m PV VTI 0.209 m RVOT Vmax 0.65 m/s Tricuspid Valve TR Peak Grad 36.3 mmHg TR Vmax 3.01 m/s RA Pressure 3.00 mmHg RVSP (TR) 39.4 mmHg
== END 2020-01-28 01:40 ==
PROVIDERS: PCP Nurse Practitioner; Visit Provider Family Medicine
DX: R00.0 Tachycardia, unspecified (principal); J44.9 Chronic obstructive pulmonary disease, unspecified; F17.200 Nicotine dependence, unspecified, uncomplicated; I08.1 Rheumatic disorders of both mitral and tricuspid valves
CPT/HCPCS: 93306

== ENCOUNTER 2020-09-06 09:57 | Outpatient (CLI) | payer MEDICARE, SELFPAY ==
--- NOTE | 2020-09-06 08:00 | DI.RAD_ITS ---
EXAM: XR SHOULDER LT COMPLETE 2+V CLINICAL HISTORY: left shoulder pain TECHNIQUE: COMPARISON: No exams were available for comparison FINDINGS: Two views were obtained. There are moderate hypertrophic degenerative changes of the acromioclavicul ar joint. Cartilaginous joint space of the glenohumeral joint appears fairly well maintained. There are inferior marginal osteophytes of the humeral head and glenoid. There is a small soft tissue rou nded calcification associated with the greater tuberosity of the humerus consistent with a calcific p eritendinitis. IMPRESSION: RADIATION DOSE DELIVERED: Total DLP
== END 2020-09-06 09:58 | disposition home or self-care (01) ==
LOC: DIORS 09:57
PROVIDERS: PCP Nurse Practitioner; Referring Provider Nurse Practitioner; Visit Provider Student in an Organized Health Care Education/Training Program
DX: M19.012 Primary osteoarthritis, left shoulder (principal); M25.812 Other specified joint disorders, left shoulder; M25.512 Pain in left shoulder; M75.52 Bursitis of left shoulder; M75.22 Bicipital tendinitis, left shoulder; R29.6 Repeated falls; J44.9 Chronic obstructive pulmonary disease, unspecified; F17.210 Nicotine dependence, cigarettes, uncomplicated
CPT/HCPCS: 99204; 99214; 73030

== ENCOUNTER 2020-09-20 02:07 | Outpatient (CLI) | payer MEDICARE, SELFPAY ==
--- NOTE | 2020-09-20 08:30 | DI.MRI_ITS ---
EXAM: MR UPPER JOINT LT WO CLINICAL HISTORY: L SHOULDER PAIN,BURSITIS LT SHOULDER, M75.52. TECHNIQUE: Multiplanar multisequence MRI was performed. CONTRAST MATERIAL: Noncontrast COMPARISON: Plain films dated September 11 FINDINGS: Exam is somewhat limited by patient motion. Patient was in pain during the exam. Bones: There is no fracture or contusion pattern. The acromioclavicular joint shows mild inferior spu rring.. No subacromial, subcoracoid or glenohumeral joint effusion is present. Rotator Cuff: There is marked thickening of the supraspinatus tendon but no visible focal tear. There is fluid in the subacromial subdeltoid bursa. Minimal amount of glenohumeral joint fluid is seen. There is a ro unded calcification adjacent to the lesser tuberosity which could be within the subscapularis tendon. No subscapularis tendon tear or thickening is seen.. Labrum and biceps anchor: The biceps tendon is located. The anchor is well maintained. The labrum is difficult to evaluate due to motion. No gross tear is seen. IMPRESSION: Limited exam due to patient motion. Severe supraspinatus tendinosis. Calcification is noted in the subscapularis tendon. DATA REPOSITORY:
== END 2020-09-20 02:27 ==
PROVIDERS: PCP Nurse Practitioner; Visit Provider Student in an Organized Health Care Education/Training Program
DX: M25.512 Pain in left shoulder (principal); M75.52 Bursitis of left shoulder; M75.82 Other shoulder lesions, left shoulder
CPT/HCPCS: 73221

== ENCOUNTER → 2020-09-27 09:03 | Outpatient (BNVA) | payer MEDICARE, SELFPAY | PROVIDERS: PCP Nurse Practitioner; Referring Provider Nurse Practitioner; Visit Provider Student in an Organized Health Care Education/Training Program | DX: M25.512 Pain in left shoulder (principal); G89.29 Other chronic pain; J44.9 Chronic obstructive pulmonary disease, unspecified; F17.210 Nicotine dependence, cigarettes, uncomplicated | CPT/HCPCS: 99213 ==

== ENCOUNTER 2020-10-20 02:24 | Outpatient (CLI) | payer MEDICARE, SELFPAY ==
[2020-10-20] MEDS: Albuterol HFA 18 GM 200 PUFF INH IH (11:08)
[2020-10-20] MEDS: Inhaler, Assist Device 1 EACH MC (11:08)
--- NOTE | 2020-10-24 13:24 | W.PFT ---
Date of service: 10/20/20 Time of Service: 10:01 Pulmonary Function Test Result Interpretation Spirometry: Moderately severe obstructive airways disease with significant bronchodilator response Impression Moderately severe obstructive airways disease with significant bronchodilator response. When the study was compared to previous 1 from 11/28/2011, the patient has a total of 540 cc improvement in FVC, FEV1 has improved by 140 cc Clinical Correlation therefore is recommended.
== END 2020-10-20 02:25 | disposition home or self-care (01) ==
LOC: RT 02:24
PROVIDERS: PCP Nurse Practitioner; Visit Provider Nurse Practitioner
DX: R06.09 Other forms of dyspnea (principal); F17.210 Nicotine dependence, cigarettes, uncomplicated; Z01.818 Encounter for other preprocedural examination
CPT/HCPCS: 94060

== ENCOUNTER 2020-11-16 15:56 | Emergency (ER) | payer MEDICARE, SELFPAY ==
[2020-11-16] VITALS (27 sets, daily range): BP systolic 66–131; BP diastolic 44–104; PULSE 88–99; RESP 11–28; TEMP 37.3; O2SAT 87–100
--- NOTE | 2020-11-16 16:15 | RT.EKG_ITS ---
APPROVED REPORT Exam: Resting ECG Reason for Exam: sob Patient Location: E HR:90 bpm ECG Measurements Heart Rate 90 AXIS AL 151 P 54 QRSd 96 QRS 84 QT 363 T 83 QTc 444 Conclusion Sinus rhythm...normal P axis, V-rate 60- 99
--- NOTE | 2020-11-16 16:44 | ED.GENADUL_ITS ---
Discharge Plan Disposition Patient Disposition: HOME Condition: Stable Discharge Details Clinical Impression: Shortness of breath, Chronic obstructive lung disease Primary Care Provider: Becca Quinones ED Provider: Sumanth Arriola Home Meds and New Rx's Prescriptions: New prednisone 20 mg tablet 60 mg PO DAILY 4 Days Qty: 12 RF: 0 Continued hydrocodone-acetaminophen 5-325 mg tablet 1 tab PO BID MDD 3 tab PRN (Reason: pain) Qty: 90 RF: 0 albuterol sulfate [Ventolin HFA] 90 mcg/actuation HFA aerosol inhaler 2 puff IH Q6H PRN (Reason: shortness of breath or wheezing) Qty: 3 RF: 4 Incruse Ellipta 62.5 mcg/actuation blister with device 1 inh Inhalation daily' Qty: 3 RF: 4 Flovent HFA 220 mcg/actuation HFA aerosol inhaler 2 puff inhalation BID Qty: 12 RF: 11 Discharge Instructions Instructions: COPD (Chronic Obstructive Pulmonary Disease) (ED) Additional Instructions: your blood work and xray do not show any concerning findings follow up with your primary care provider within 1 week if you feel more ill, have worsening trouble breathing or pain return to the emergency department Medical Decision Making 80 yo female with hx of copd and conitnued smoker, hld, who comes in with cc of dyspnea, cough, nausea and mild headache starting aroud noon and feels it is related to ortho home defense bed bug spray she used in her house around 10am. She denies chest pain/pressure, fevers, abdomen pain, vomit. She appears anxious and states she does feel anxious as well. She has mild apical wheezing on exam in both upper lung weston normal lung souns in lower lung weston, soft nontender abdomen, no leg swelling or calf tenderness. Suspect copd vs anxiety, will tx with steroids, neb and ativan and reassess. Will obtain chest xray to evaluate for possible infiltrate. Wells score is low, will obtain d dimer to evaluate for PE. No chest pain or pressure so feel this is unlikely acs, ekg without ischemic findings, will obtain troponin. patient feels and looks much better and less anxious, requesting d/c. Labs and xray unremarkable. Remains stable and given over 3 hours since symptom onset do not feel repeat troponin and ecg indicated. Suspect anxiety vs copd and will start on prednisone. She understands importance of f/u with pcp and return precautions given Differential Diagnosis Differential Diagnosis: anxiety, copd, inhalation injury, pe Medical Records Medical records reviewed: Yes I reviewed the patient's medical records. Imaging Data Radiologic Study: Attestation: I personally reviewed and interpreted this imaging study as follows: Imaging: X-Ray Radiologist's impression: no acute findings Lab Data Lab results reviewed: Yes I reviewed the patient's lab results. ECG Data Attestation: I personally reviewed and interpreted this ECG (s) as follows: Prior ECG tracings: not available for review Interpretation: sinus rhythm, rate of 90, pr 151, no acute st t wave ischemic findings HPI General Date/Time Provider Initiated Documentation: 11/16/20 15:58 . Limitations to Documentation: no limitations . Information obtained by: patient . History of Present Illness 80 year old F presents to the emergency department with the chief complaint of difficulty breathing, described as moderate, Patient started experiencing this hour(s) (3) and it has been constant. No relieving factors improve symptom(s), No exacerbating factors reported . Patient notes cough. Patient did receive the following treatments prior to arrival, none Related Data Home Medications Medication Instructions Recorded Confirmed albuterol sulfate 90 mcg/actuation 2 puff IH Q6H PRN #3 g 07/11/20 11/16/20 aerosol inhaler umeclidinium 62.5 mcg/actuation 1 inh INHALATION daily' #3 inhaler 07/11/20 11/16/20 blister powder for inhalation hydrocodone 5 mg-acetaminophen 325 1 tab PO BID PRN #90 tab-cap MDD 3 11/01/20 11/16/20 mg tablet tab fluticasone propionate 220 2 puff INHALATION BID #12 g 11/04/20 11/16/20 mcg/actuation HFA aerosol inhaler prednisone 60 mg PO DAILY 4 Days #12 tab 11/16/20 Previous Rx's Medication Instructions Recorded albuterol sulfate 90 mcg/actuation 2 puff IH Q6H PRN #3 g 07/11/20 aerosol inhaler umeclidinium 62.5 mcg/actuation 1 inh INHALATION daily' #3 inhaler 07/11/20 blister powder for inhalation hydrocodone 5 mg-acetaminophen 325 1 tab PO BID PRN #90 tab-cap MDD 3 11/01/20 mg tablet tab fluticasone propionate 220 2 puff INHALATION BID #12 g 11/04/20 mcg/actuation HFA aerosol inhaler prednisone 60 mg PO DAILY 4 Days #12 tab 11/16/20 Allergies Allergy/AdvReac Type Severity Reaction Status Date / Time nabumetone [From Relafen] AdvReac Intermediate GI UPSET Verified 11/16/20 16:38 General Stated Complaint: SOB TRAM: 2 Review of Systems All systems reviewed & are unremarkable except as noted in HPI and below Constitutional Constitutional: Denies chills, Denies fever(s) and Denies weakness Cardiovascular Cardiovascular: Denies chest pain Gastrointestinal Gastrointestinal: Denies vomiting Musculoskeletal Musculoskeletal: Denies joint swelling Integumentary/Breasts Skin/Breast: Denies rash Neurologic Neurologic: Denies weakness [facility] Medical History (Updated 11/16/20 @ 19:00 by Sumanth Arriola MD) Acquired cyst of kidney (05/23/05) Alcohol abuse Bursitis of left shoulder Chronic obstructive lung disease Chronic pain syndrome (01/14/18) Closed fracture of two ribs (12/01/09) Diverticulitis of colon (05/23/89) Electroencephalogram abnormality (05/23/07) Hepatitis A virus infection Hyperlipidemia Pneumococcal pneumonia (05/23/98) Subacromial bursitis of left shoulder joint (04/24/17) Viral meningitis (12/21/05) Surgical History History of bilateral ligation of fallopian tubes History of colectomy Status post appendectomy Status post cholecystectomy Status post hip replacement Family History Mother , AGE 77 Cancer Father , AGE 64 Cancer Sister , AGE 62 Cancer Brother , AGE 70 Cancer Maternal Grandmother , AGE 80 Cancer Son No problems noted. Social History Smoking/Tobacco Use Status: Current every day Tobacco Type: cigarettes Years smoked: 50 Quit status: considering quitting Second Hand Exposure: Yes Smoking risk assessment performed?: Yes Alcohol Intake: current Alcohol Intake frequency: holidays/special occasions only Alcohol type: wine Drug use: Never Substance use type: does not use Caregiver/Support person: No Household members: none Housing: apartment Pets and animals: No Sexually active: Yes Current gender identity: female What is your relationship status?: How often do you talk on the phone with friends or family?: three or more times per week How often do you get together with friends or relatives?: three or more times per week How often do you attend confucianist or protestant services?: decline to answer Do you belong to any clubs or organized social groups?: no Panel score (0-1 are the most socially isolated patients): 1 Duration: 15-30 minutes/day Frequency: daily Jessa/Congregation: [employer] Special jsesa needs: No Seatbelt use: always 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 Do you feel safe at home: Yes Do you feel safe in your relationship?: Yes Exam Const General: anxious Orientation: alert HENMT Head: normal to inspection Ears: external ears normal General nose exam: external nose normal Mouth: moist mucous membranes Eyes General: appearance normal, both eyes and all related structures Neck Neck: normal visual inspection Resp Effort & Inspection: normal respiratory effort, able to speak in complete sentences and audible wheezes Cardio Rate: regular rate Skin General skin exam: no rashes or lesions noted Neuro General: patient alert and patient oriented x3 Extrem General: normal to inspection Psych Mental Status: mental status grossly normal Course Vital Signs Vital signs: Vital Signs Temperature 37.3 C 11/16/20 16:20 Pulse 98 H 11/16/20 16:20 Respiratory Rate 11/16/20 16:20 Blood Pressure 121/66 11/16/20 16:20 Pulse Oximetry 93 11/16/20 16:20 Temperature 37.3 C 11/16/20 16:20 Temperature Source Skin 11/16/20 16:20 Pulse 98 H 11/16/20 16:20 Respiratory Rate 11/16/20 16:20 Respiratory Effort 11/16/20 16:37 Blood Pressure 121/66 11/16/20 16:20 Pulse Oximetry 93 11/16/20 16:20 Oxygen Delivery Method Room Air 11/16/20 16:20 Oxygen Flow Rate 0 11/16/20 16:20 Pain Level 7 11/16/20 16:20 Comment 11/16/20 16:20
--- NOTE | 2020-11-16 17:04 | DI.RAD_ITS ---
Exam(s) XR PORTABLE CHEST AP EXAM: XR PORTABLE CHEST AP CLINICAL HISTORY: dyspnea. TECHNIQUE: 2D digital imaging was performed. COMPARISON: CR XR PORTABLE CHEST AP from 01/22/2020 FINDINGS: Heart size upper normal. Mediastinum is not widened. Some increased markings in the right lung base appear unchanged. Also granuloma towards right lung base. Left lung remains clear. No pleural eff usions. No pulmonary edema. IMPRESSION: No significant radiographic change compared to 01/22/2020. DATA REPOSITORY: RADIATION DOSE DELIVERED: All CT scans at this facility use at least one of these dose optimization techniques: automated exposure control; mA and/or kV adjustment per patient size (includes targeted e xams where dose is matched to clinical indication); or iterative reconstruction.
[2020-11-16] MEDS: methylPREDNISolone SUCC 125 MG VIAL IVP (17:15)
[2020-11-16] MEDS: Albuterol/Ipratropium 3 ML UPD VIAL UPD (17:15)
[2020-11-16] MEDS: LORazepam 2 MG/ML VIAL 0.5 MG IVP (17:15)
--- NOTE | 2020-11-16 17:25 | DI.VRAD_ITS ---
PROCEDURE INFORMATION: Exam: XR Chest Exam date and time: 11/16/2020 4:44 PM Age: 80 years old Clinical indication: Dyspnea TECHNIQUE: Imaging protocol: XR of the chest. Views: 1 view. Total images: 1 COMPARISON: CR XR PORTABLE CHEST AP 01/22/2020 2:39 PM FINDINGS: Lungs: There is no consolidation. There is a stable tiny calcified granuloma in the right lower lung. No vascular congestion. Pulmonary madonna: Unremarkable contours. Pleural spaces: No pleural effusion. No pneumothorax. Heart/Mediastinum: Unremarkable contours. No cardiomegaly. Bones/joints: Unremarkable. Intraperitoneal space: Visualized upper abdomen is unremarkable. IMPRESSION: Stable chest. No acute findings. Dictated and Authenticated by: Nate Stanford MD. Ordering:MANDEEP Julio MD
[2020-11-16 17:33] LABS: BE (Venous) 5 mmol/L (-2-3); HCO3 (Venous) 30 mmol/L (23-28); O2 Sat (Venous) 72 %; TCO2 (Venous) 26 mmol/L (24-29); pCO2 (Venous) 48 mmHg (41-51); pO2 (Venous) 36 mmHg
[2020-11-16 17:40] LABS: Abs Immature Grans 0.03 10^3/uL (0.0-0.06); Absolute Basophil Count 0.02 10^3/uL (0.0-0.2); Absolute Eosinophil Count 0.15 10^3/uL (0.0-0.7); Absolute Monocyte Count 0.42 10^3/uL (0.1-0.8); Absolute Neutrophil Count 4.97 10^3/uL (1.2-6.7); Basophils % 0.3; HCT 43.4 % (36.0-46.0); HGB 14.8 g/dL (11.2-15.7); Immature Grans % 0.4; Lymphocytes % 24.4; MCHC 34.1 % (32.0-36.0); MPV 9.2 fL (8.0-11.0); Monocytes % 5.7; Neutrophils % 67.2; Nucleated RBC 0 %; Platelet Count 275 10^3/uL (130-400); RBC 4.77 10^6/uL (3.93-5.22); RDW 12.9 % (11.7-14.6); RDW-SD 42.8 fL; WBC 7.39 10^3/uL (4.4-10.8)
[2020-11-16 18:02] LABS: PTT Activated 24.9 sec (21.0-27.5); Prothrombin Time 9.8 sec (9.3-11.0)
[2020-11-16 18:14] LABS: ALT 18 U/L (14-59); AST 17 U/L (15-37); Albumin 3.7 g/dL (3.4-5.0); Alkaline Phosphatase 77 U/L (46-116); Anion Gap 6.5 mmol/L (3-11); BUN 9 mg/dL (7-18); Bilirubin, Total 0.8 mg/dL (0.2-1.0); CO2 30.5 mmol/L (21.0-32.0); CREATININE 0.6 mg/dL (0.55-1.02); Calcium 9.1 mg/dL (8.5-10.1); Chloride 107 mmol/L (98-107); Glucose 92 mg/dL (74-106); NT-proBNP 125 pg/mL (<300); Sodium 144 mmol/L (136-145); Total Protein 7.1 g/dL (6.4-8.2)
[2020-11-16 18:15] LABS: Troponin I < 0.05 ng/mL (<0.06)
[2020-11-16 18:37] LABS: D-Dimer 513 ng/mlFEU (<500)
== END 2020-11-16 19:30 | disposition home or self-care (01) ==
PROVIDERS: Emergency Provider Emergency Medicine; PCP Nurse Practitioner
DX: R06.02 Shortness of breath (principal); J44.9 Chronic obstructive pulmonary disease, unspecified; F41.9 Anxiety disorder, unspecified; F17.210 Nicotine dependence, cigarettes, uncomplicated
CPT/HCPCS: 36415; 80053; 82805; 93005; 94640; 96374; 96375; 99285; 71045; 83880; 84484; 85025; 85379; 85610; 85730; 93010; J2060; J2930; J7620

== ENCOUNTER 2020-12-12 01:49 | Outpatient (CLI) | payer MEDICARE, SELFPAY ==
--- NOTE | 2020-12-12 09:13 | DI.CT_ITS ---
Exam(s) CT CHEST HIGH RESOLUTION EXAM: CT CHEST HIGH RESOLUTION CLINICAL HISTORY: sob, hemoptysis,chronic obstructive lung disease,r04.2,r06.02,j44.9. TECHNIQUE: Multi planar reconstructions were performed. CONTRAST MATERIAL: None COMPARISON: CR,XR XR PORTABLE CHEST AP from 11/16/2020 CR,XR XR PORTABLE CHEST AP from 11/16/2020 FINDINGS: CHEST: LUNGS: There is significant infiltrate in right middle lobe just above the hemidiaphragm medial segme nt, this exhibits air bronchograms. There is also small nodular infiltrate in superior segment of th e right lower lobe which measures 6 x 7 millimeters. This appears slightly spiculated.. There is al so infiltrate in the anterior basal segment of the right lower lobe as well as subpleural mild infilt rate in the posterior basal segment of the right lower lobe. No pleural effusion. There is calcified granuloma in the lateral aspect of the right lung. In the opposite-left lung there is a 3 millimeter subpleural nodule in the left upper lobe. Mild inf iltrate in the right lung base just above the hemidiaphragm is noted in the left lower lobe. Also so me mild patchy infiltrate in the posterior basal segment left lower lobe. There are no pleural effusions on either side. No significant focal findings in the trachea and main stem bronchi. MEDIASTINUM: Calcified subcarinal lymph nodes are noted. Right hilum appears unremarkable. Slight i ncreased density seen at the aortopulmonic window left side which may indicate adenopathy. Remainder of the left hilum is unremarkable. No obvious axillary adenopathy CARDIAC: Heart size normal. There is no pericardial effusioncalcified mitral valve annulus. Caliber thoracic aorta is upper normal. VISUALIZED UPPER ABDOMEN:No significant adrenal masses. Large cystic structure medial to the right k idney partially included. This may be an extrarenal pelvis but difficult to assess on this type of s tudy. There is also a nonobstructive tiny 1 millimeter calculus in the right kidney. The entire kid neys are not included in the field of view. OSSEOUS: No significant osseous lesions.. IMPRESSION: 1. There are patchy and nodular infiltrates in both lung weston, not associated with pleural effusion s. Possible adenopathy in the aortopulmonic window which is difficult to assess without IV contrast. Recommend follow-up CT scan in 3 months. 2. Large cystic structure medial to the right kidney noted. This may represent extrarenal pelvis but is not completely included in the field of view of this study. 3. Recommend follow-up contrast infused CT scan in 3 months, earlier if clinically indicated. RADIATION DOSE DELIVERED: 510.8mGy.cm Total DLP DATA REPOSITORY: All CT scans at this facility are submitted to the National Radiology Data Registry (NRDR) Dose Index Registry (DIR) with the [employer] ([employer]). RADIATION OPTIMIZATION: All CT scans at this facility use at least one of these dose optimization te chniques: automated exposure control; mA and/or kV adjustment per patient size (includes targeted exa ms where dose is matched to clinical indication); or iterative reconstruction.
== END 2020-12-12 02:09 ==
PROVIDERS: PCP Nurse Practitioner; Visit Provider Nurse Practitioner
DX: R91.8 Other nonspecific abnormal finding of lung field (principal); R91.1 Solitary pulmonary nodule; N28.1 Cyst of kidney, acquired; J44.9 Chronic obstructive pulmonary disease, unspecified
CPT/HCPCS: 71250

== ENCOUNTER 2020-12-25 08:05 | Emergency (ER) | payer MEDICARE, SELFPAY ==
[2020-12-25] VITALS (36 sets, daily range): BP systolic 105–150; BP diastolic 43–94; PULSE 57–107; RESP 4–30; TEMP 36.5; O2SAT 90–100
--- NOTE | 2020-12-25 08:00 | RT.EKG_ITS ---
APPROVED REPORT Exam: Resting ECG Reason for Exam: sob Patient Location: E HR:89 bpm ECG Measurements Heart Rate 89 AXIS HI 156 P 73 QRSd 97 QRS 76 QT 377 T 70 QTc 459 Conclusion Sinus rhythm...normal P axis, V-rate 60- 99
--- NOTE | 2020-12-25 08:25 | W.ED.GENAD ---
Discharge Plan Disposition Patient Disposition: HOME Condition: Improving Discharge Details Clinical Impression: Opiate withdrawal Primary Care Provider: Becca Quinones ED Provider: Nate Pate Home Meds and New Rx's Prescriptions: Continued fluticasone propion-salmeterol [Advair Diskus] 250-50 mcg/dose blister with device 1 inh inhalation BID Qty: 60 RF: 6 fluoxetine 20 mg capsule 20 mg PO DAILY Qty: 30 RF: 0 albuterol sulfate [Ventolin HFA] 90 mcg/actuation HFA aerosol inhaler 2 puff IH Q6H PRN (Reason: shortness of breath or wheezing) Qty: 3 RF: 4 Incruse Ellipta 62.5 mcg/actuation blister with device 1 inh Inhalation daily' Qty: 3 RF: 4 Discontinued hydrocodone-acetaminophen 5-325 mg tablet 1 tab PO BID MDD 3 tab PRN (Reason: pain) Qty: 60 RF: 0 Discharge Instructions Additional Instructions: And was seen by [facility] human services as well as our community retail performance coach. You have agreed to outpatient plan of safety including check ins. May use Benadryl as needed for sleep 25 to 50 mg every 4-6 hours, as well as Zofran as needed for nausea. Return to the emergency department for any acute concerns. Medical Decision Making 80-year-old female presents from home via EMS. She has 1 minor and one major complaint. The minor is that she had transient shortness of breath improved breathing treatment at home. She has been weaning her cigarettes but does have a history of COPD. She has no further complaints of shortness of breath and she has not had a cough or fever. Secondarily she admitted to her son this morning that she has developed a narcotic dependency. She states to me that she is prescribed to tablets daily and has escalated her use to 5 Vicodin tablets daily, with last use 48 hours ago. She feels determined to cease use of opiates. Additionally, she has had suicidal thoughts including telling her self by driving to a tree or taking an overdose. Medically the patient states she has been well but was recently diagnosed with spots on my lungs, her CT imaging from December 12 revealed: 1. There are patchy and nodular infiltrates in both lung weston, not associated with pleural effusions. Possible adenopathy in the aortopulmonic window which is difficult to assess without IV contrast. Recommend follow-up CT scan in 3 months. 2. Large cystic structure medial to the right kidney noted. This may represent extrarenal pelvis but is not completely included in the field of view of this study. 3. Recommend follow-up contrast infused CT scan in 3 months, earlier if clinically indicated. Patient underwent medical screening examination, her oxygenation is 9094% on room air and her lungs are clear. IV access established, screening labs obtained patient referred for EKG and chest x-ray. Patient's laboratories are reassuring. She has had elevated bilirubins over years time dating back to least 2005 when it was 1.7. Today total bili is 1.2. Normal LFTs, unremarkable CBC and chemistries. CXR: No acute pulmonary findings. Patient was seen in the emergency department by the community retail performance coach as well as by [facility] human services/crisis team. She no longer feels at risk of harming herself, she is agreed to outpatient plan of safety including check ins. She is stable and improving. Will offer Benadryl and Zofran to help with mild withdrawal symptoms. Lab Data Lab results reviewed: Yes I reviewed the patient's lab results. Labs: Laboratory Results - last 24 hr 12/25/20 12/25/20 12/25/20 08:43 08:43 09:08 WBC 7.18 RBC 4.83 Hgb 14.9 Hct 45.0 MCV 93.2 MCH 30.8 MCHC 33.1 RDW 13.4 Plt Count 199 MPV 9.3 Immature Gran % 0.3 Neutrophils % 74.7 Lymphocytes % 18.9 Monocytes % 4.9 Eosinophils % 1.1 Basophils % 0.1 Nucleated RBC % 0 Absolute Neutrophils 5.36 Absolute Lymphocytes 1.36 Absolute Monocytes 0.35 Absolute Eosinophils 0.08 Absolute Basophils 0.01 Sodium 143 Potassium 4.1 Chloride 107 Carbon Dioxide 27.9 Anion Gap 8.1 BUN 9 Creatinine 0.5 L Estimated GFR/1.73 m2 >= 60.00 Glucose 84 Calcium 9.1 Total Bilirubin 1.2 H AST 12 L ALT 14 Alkaline Phosphatase 77 Total Protein 6.8 Albumin 3.5 TSH 1.09 Urine Color Urine Clarity Urine pH Ur Specific [place] Urine Protein Urine Ketones Urine Blood Urine Nitrite Urine Bilirubin Urine Urobilinogen Ur Leukocyte Esterase Urine Glucose Urine Opiates Screen Positive A Urine Methadone Screen Negative Ur Barbiturates Screen Negative Ur Tricyclics Screen Negative Ur Amphetamines Screen Negative U Benzodiazepines Scrn Negative Urine Cocaine Screen Negative Ur THC Screen Negative Ethyl Alcohol < 3.0 COVID-19 Source 12/25/20 12/25/20 09:08 09:09 WBC RBC Hgb Hct MCV MCH MCHC RDW Plt Count MPV Immature Gran % Neutrophils % Lymphocytes % Monocytes % Eosinophils % Basophils % Nucleated RBC % Absolute Neutrophils Absolute Lymphocytes Absolute Monocytes Absolute Eosinophils Absolute Basophils Sodium Potassium Chloride Carbon Dioxide Anion Gap BUN Creatinine Estimated GFR/1.73 m2 Glucose Calcium Total Bilirubin AST ALT Alkaline Phosphatase Total Protein Albumin TSH Urine Color Yellow Urine Clarity Clear Urine pH 7.5 Ur Specific [place] 1.020 Urine Protein Negative Urine Ketones Negative Urine Blood Negative Urine Nitrite Negative Urine Bilirubin Negative Urine Urobilinogen 0.2 Ur Leukocyte Esterase Negative Urine Glucose Negative Urine Opiates Screen Urine Methadone Screen Ur Barbiturates Screen Ur Tricyclics Screen Ur Amphetamines Screen U Benzodiazepines Scrn Urine Cocaine Screen Ur THC Screen Ethyl Alcohol COVID-19 Source Nasal/Nares HPI General Mode of arrival: ambulatory. Date/Time Provider Initiated Documentation: 12/25/20 08:30. Limitations to Documentation: no limitations. Information obtained by: patient. History of Present Illness 80 year old F presents to the emergency department with the chief complaint of Transient shortness of breath at home, suicidal and withdrawing, described as moderate, and is localized to the chest. Patient reports no radiation. Patient started experiencing this minute(s) and it has been intermittent and now resolved. No relieving factors improve symptom(s), No exacerbating factors reported . Patient notes other (States she is prescribed to 5 mg Vicodin tablets daily, has increased to 5/day with illicit purchase, last use 48 hours). Related Data Home Medications Medication Instructions Recorded Confirmed albuterol sulfate 90 mcg/actuation 2 puff IH Q6H PRN #3 g 07/11/20 12/25/20 aerosol inhaler umeclidinium 62.5 mcg/actuation 1 inh INHALATION daily' #3 inhaler 07/11/20 12/25/20 blister powder for inhalation fluoxetine 20 mg capsule 20 mg PO DAILY #30 cap 12/09/20 12/25/20 fluticasone 250 mcg-salmeterol 50 1 inh INHALATION BID #60 ea 12/09/20 12/25/20 mcg/dose blistr powdr for inhalation Previous Rx's Medication Instructions Recorded albuterol sulfate 90 mcg/actuation 2 puff IH Q6H PRN #3 g 07/11/20 aerosol inhaler umeclidinium 62.5 mcg/actuation 1 inh INHALATION daily' #3 inhaler 07/11/20 blister powder for inhalation fluoxetine 20 mg capsule 20 mg PO DAILY #30 cap 12/09/20 fluticasone 250 mcg-salmeterol 50 1 inh INHALATION BID #60 ea 12/09/20 mcg/dose blistr powdr for inhalation Allergies Allergy/AdvReac Type Severity Reaction Status Date / Time nabumetone [From Relafen] AdvReac Intermediate GI UPSET Verified 12/25/20 08:05 General Stated Complaint: PsychEval TRAM: 2 Review of Systems Narrative: Transient shortness of breath at home and improved with breathing treatment. No recent illness, denies cough or fever. She has not been vaccinated for COVID-19. Suicidal with thoughts of dying by car crash or overdose. [facility] Medical History Acquired cyst of kidney (05/23/05) Alcohol abuse Bursitis of left shoulder Chronic obstructive lung disease Chronic pain syndrome (01/14/18) Closed fracture of two ribs (12/01/09) Diverticulitis of colon (05/23/89) Electroencephalogram abnormality (05/23/07) Hepatitis A virus infection Hyperlipidemia Pneumococcal pneumonia (05/23/98) Subacromial bursitis of left shoulder joint (04/24/17) Viral meningitis (12/21/05) Surgical History History of bilateral ligation of fallopian tubes History of colectomy Status post appendectomy Status post cholecystectomy Status post hip replacement Family History Mother , AGE 77 Cancer Father , AGE 64 Cancer Sister , AGE 62 Cancer Brother , AGE 70 Cancer Maternal Grandmother , AGE 80 Cancer Son No problems noted. Social History Smoking/Tobacco Use Status: Current every day Tobacco Type: cigarettes Years smoked: 50 Quit status: considering quitting Second Hand Exposure: Yes Smoking risk assessment performed?: Yes Alcohol Intake: current Alcohol Intake frequency: holidays/special occasions only Alcohol type: wine Drug use: Never Substance use type: does not use Caregiver/Support person: No Household members: none Housing: apartment Pets and animals: No Sexually active: Yes Current gender identity: female What is your relationship status?: How often do you talk on the phone with friends or family?: three or more times per week How often do you get together with friends or relatives?: three or more times per week How often do you attend pentecostalism or baptism services?: decline to answer Do you belong to any clubs or organized social groups?: no Panel score (0-1 are the most socially isolated patients): 1 Duration: 15-30 minutes/day Frequency: daily Jessa/Mu-Ism: Tenriism Special jessa needs: No Seatbelt use: always Drive intox or ride w/intox local delivery truck driver: No Do you feel safe at home: Yes Do you feel safe in your relationship?: Yes Exam Narrative Exam Narrative: GEN: awake, alert, oriented 3. Pleasant, well groomed, interactive. HEAD: Normocephalic, atraumatic ENT: Mucous membranes dry, oropharynx unremarkable, External ear exam unremarkable EYES: PERRL, EOMI NECK: Full ROM, no DONALD, no menigismus CHEST/RESP: Nontender, clear to auscultation bilateral, no wheeze/rhonchi/rales CARDIOVASCULAR: RRR, no murmur, rub sridevi. 2+ Rad pulse bilateral ABDOMEN: Soft, nontender, no mass. +Bowel sounds EXT: Full ROM, no edema, no rash Neuro: Grossly normal neurologic exam, conversant, interactive. Psych: Speech fluent, thoughts congruent, affect anxious Course Vital Signs Vital signs: Vital Signs Temperature 36.5 C 12/25/20 08:00 Pulse 57 L 12/25/20 08:00 Respiratory Rate 20 12/25/20 08:00 Blood Pressure 150/65 H 12/25/20 08:00 Pulse Oximetry 96 12/25/20 08:00 Temperature 36.5 C 12/25/20 08:00 Temperature Source Temporal Artery Scan 12/25/20 08:00 Pulse 57 L 12/25/20 08:00 Respiratory Rate 20 12/25/20 08:00 Blood Pressure 150/65 H 12/25/20 08:00 Blood Pressure Position Sitting 12/25/20 08:00 Pulse Oximetry 96 12/25/20 08:00 Oxygen Delivery Method Room Air 12/25/20 08:00 Oxygen Flow Rate 0 12/25/20 08:00
[2020-12-25 08:57] LABS: Abs Immature Grans 0.02 10^3/uL (0.0-0.06); Absolute Basophil Count 0.01 10^3/uL (0.0-0.2); Absolute Eosinophil Count 0.08 10^3/uL (0.0-0.7); Absolute Lymphocyte Count 1.36 10^3/uL (1.2-3.4); Absolute Monocyte Count 0.35 10^3/uL (0.1-0.8); Absolute Neutrophil Count 5.36 10^3/uL (1.2-6.7); Basophils % 0.1; Eosinophils % 1.1; HGB 14.9 g/dL (11.2-15.7); Immature Grans % 0.3; Lymphocytes % 18.9; MCH 30.8 pg (27.0-33.0); MCHC 33.1 % (32.0-36.0); MCV 93.2 fL (80-95); MPV 9.3 fL (8.0-11.0); Monocytes % 4.9; Neutrophils % 74.7; Nucleated RBC 0 %; Platelet Count 199 10^3/uL (130-400); RBC 4.83 10^6/uL (3.93-5.22); RDW 13.4 % (11.7-14.6); RDW-SD 46.1 fL; WBC 7.18 10^3/uL (4.4-10.8)
[2020-12-25 09:14] LABS: Source Nasal/Nares
[2020-12-25] MEDS: Normal Saline 1,000 ML 1000 ML IV (09:20)
[2020-12-25 09:21] LABS: ALT 14 U/L (14-59); AST 12 U/L (15-37); Albumin 3.5 g/dL (3.4-5.0); Alkaline Phosphatase 77 U/L (46-116); Anion Gap 8.1 mmol/L (3-11); BUN 9 mg/dL (7-18); Bilirubin, Total 1.2 mg/dL (0.2-1.0); CO2 27.9 mmol/L (21.0-32.0); CREATININE 0.5 mg/dL (0.55-1.02); Calcium 9.1 mg/dL (8.5-10.1); Chloride 107 mmol/L (98-107); Glucose 84 mg/dL (74-106); Potassium 4.1 mmol/L (3.5-5.1); Sodium 143 mmol/L (136-145); TSH (W/Ref FT4) 1.09 uIU/mL (0.36-3.74); Total Protein 6.8 g/dL (6.4-8.2)
[2020-12-25] MEDS: LORazepam 2 MG/ML VIAL 0.5 MG IVP (09:21)
[2020-12-25] MEDS: Ondansetron 4 MG/2 ML VIAL IVP (09:21)
[2020-12-25 09:22] LABS: ETHANOL BLOOD < 3.0 mg/dL (<3)
[2020-12-25 09:30] LABS: *AMPHETAMINES SCREEN URINE Negative (Negative); *BARBITURATES SCREEN URINE Negative (Negative); *BENZODIAZEPINES SCREEN URINE Negative (Negative); Cannabinoids THC Negative (Negative); Cocaine Screen,Urine Negative (Negative); METHADONE URINE SCREEN Negative (Negative); OPIATES URINE SCREEN Positive (Negative)
[2020-12-25 09:31] LABS: Bilirubin Negative (Negative); Blood Negative (Negative); Clarity Clear (Clear); Glucose Negative (Negative); Ketones Negative (Negative); Leukocyte Esterase Negative (Negative); Nitrite Negative (Negative); Tricyclic Antidepressants Negative (Negative); Urobilinogen 0.2 EU/dL (Up TO 0.2); pH 7.5 (5-8)
[2020-12-25 10:06] LABS: Salicylate < 2.8 mg/dL (<2.8)
[2020-12-25 10:07] LABS: Acetaminophen < 2 ug/mL (10-30)
[2020-12-25 10:11] LABS: COVID-19 PCR Negative (Negative)
[2020-12-25] MEDS: Albuterol/Ipratropium 3 ML UPD VIAL UPD (10:30)
--- NOTE | 2020-12-25 10:35 | DI.RAD_ITS ---
Exam(s) XR CHEST 2V PA LATERAL EXAM: XR CHEST 2V PA LATERAL CLINICAL HISTORY: recent abnl ct, SOB this AM, hx COPD TECHNIQUE: 2D digital imaging was performed. COMPARISON: CR,XR XR PORTABLE CHEST AP from 11/16/[address] CHEST HIGH RESOLUTION from 12/12/[address] CHEST HIGH RESOLUTION from 12/12/2020 FINDINGS: MEDIASTINUM: Normal. HEART: Normal size. PULMONARY VASCULATURE: Normal. LUNGS: Hyperinflation. Scarring Right lung base. PLEURAL SPACE: No pleural effusion or pneumothorax. BONE:Degenerative disk changes. IMPRESSION: No acute pulmonary findings. DATA REPOSITORY: RADIATION DOSE DELIVERED:
--- NOTE | 2020-12-25 11:08 | DI.VRAD_ITS ---
PROCEDURE INFORMATION: Exam: XR Chest Exam date and time: 12/25/2020 10:36 AM Age: 80 years old Clinical indication: Shortness of breath TECHNIQUE: Imaging protocol: XR of the chest. Views: 2 views. COMPARISON: CT CHEST HIGH RESOLUTION 12/12/2020 9:05 AM FINDINGS: Lungs: Bibasilar atelectasis or airspace disease appears slightly worsened from previous exam. Lung weston appear hyperinflated likely due to underlying emphysematous disease. Pleural spaces: Mild blunting the right costophrenic angle. Calcified granuloma right lung base. Heart/Mediastinum: Cardiac silhouette is at the upper limits of normal in size. Bones/joints: Unremarkable. IMPRESSION: Emphysema. Worsening bibasilar airspace disease or atelectasis. Dictated and Authenticated by: Beata Paula MD. Ordering:SUMEET Sullivan MD
--- NOTE | 2020-12-25 11:56 | PDOC.MHCN_ITS ---
Date of service: 12/25/20 Time of Service: 11:56 Mental Health Crisis Note Presenting Issue How did you arrive at the ED and why did you come: Client arrived at [facility] Ed this morning via [facility] for SOB. Client stated that she was prescribed oxycodone 2 tablets a day and had been buying [address] so she was taking 5 pills daily. Client states that she has not taken any pills in about 2 days. Client also endorsed SI with plan. Precipitating Factors Client endorses SI with plans of smashing car into a tree or taking pills and not waking up. Client denies intent to carry out plan. Disposition BEHAVIOR: Client is laying down in bed sleeping when this publicity writer arrives in person. When this publicity writer asked client what brought her to the ED she states my breathing has been getting worse and I have been having SI with a plan, but no intent to carry out the plan. When this publicity writer asked client on a scale of 0-10 with 0 being that she would be safe if she was to discharge home and 10 being that she would find a way to harm herself she rated herself a 4. Client engages with this publicity writer and answers all of the questions that are asked of her. EYE CONTACT: Client makes fair eye contact with this publicity writer MOOD: Clients mood appears to be depressed and anxious AFFECT: normal affect APPETITE: Client states that her appetite is on and off, she states that she is more of a grazier and eats when she is hungry. SLEEP(trouble falling/staying asleep: Client states that she has trouble staying asleep reporting that she gets up about every 2-3 hours and gets up for the day at 3:30 a.m. Plan Client will discharge on a safety plan, which includes: following up with horse riding coach or instructor in 10 days, calling a support person when feeling overwhelmed, and a check-in phone call with [facility] ES today at 5:00 p.m. Client given [facility] crisis line phone number and was encouraged to utilize it when she is feeling overwhelmed. Client refused [facility] intake paperwork and refused referral for counseling/case management. Signature Clinician's Name/Title: Clair Palma, [facility] Emergency Clinician
[2020-12-25] MEDS: diphenhydrAMINE 25 MG CAP 50 MG PO (13:22)
[2020-12-25] MEDS: Ondansetron O.D.T. 4 MG TABEF, 3 TABS/BTL PO (13:22)
== END 2020-12-25 13:21 | disposition home or self-care (01) ==
PROVIDERS: Emergency Provider Emergency Medicine; PCP Nurse Practitioner
DX: F11.23 Opioid dependence with withdrawal (principal); R45.851 Suicidal ideations; R06.02 Shortness of breath; Z20.822 Contact with and (suspected) exposure to COVID-19; Z03.818 Encounter for observation for suspected exposure to other biological agents ruled out
CPT/HCPCS: 36415; 80053; 80307; 87635; 93005; 94640; 96361; 96374; 96375; 99285; 71046; 80320; 80329; 81003; 84443; 85025; 93010; J2060; J2405; J7620

== ENCOUNTER → 2020-12-30 09:18 | Outpatient (BNVA) | payer MEDICARE, SELFPAY | PROVIDERS: PCP Nurse Practitioner; Referring Provider Nurse Practitioner; Visit Provider Student in an Organized Health Care Education/Training Program | DX: M75.32 Calcific tendinitis of left shoulder (principal); M75.52 Bursitis of left shoulder; J44.9 Chronic obstructive pulmonary disease, unspecified; F17.210 Nicotine dependence, cigarettes, uncomplicated | CPT/HCPCS: 99213 ==

== ENCOUNTER 2021-04-05 13:33 | Outpatient (REF) | payer MEDICARE, SELFPAY ==
[2021-04-06 23:26] LABS: COVID-19 RT-PCR UVMMC Result Negative (Negative)
== END 2021-04-05 13:34 | disposition home or self-care (01) ==
LOC: LBN 13:33
PROVIDERS: PCP Nurse Practitioner; Visit Provider Family Medicine
DX: Z20.822 Contact with and (suspected) exposure to COVID-19 (principal); R06.02 Shortness of breath
CPT/HCPCS: U0003; U0005

== ENCOUNTER 2021-04-06 01:41 | Outpatient (CLI) | payer MEDICARE, SELFPAY ==
--- NOTE | 2021-04-06 06:30 | DI.RAD_ITS ---
Exam(s) XR CHEST 2V PA LATERAL EXAM: XR CHEST 2V PA LATERAL CLINICAL HISTORY: smoker w/ pleuritic chest pain on rt base,CHRONIC COUGH, R05.3 TECHNIQUE: COMPARISON: CR XR PORTABLE CHEST AP from 01/22/2020 CR,XR XR CHEST 2V PA LATERAL from 12/25/2020 FINDINGS: Heart is not enlarged. Non-specific radiodensities at the right lung base with slight elevation of t he diaphragm on the right again noted, no change from January 22, 2020. No acute intrapulmonary process seen. No pleural effusion seen. IMPRESSION: No evidence of acute process. RADIATION DOSE DELIVERED: Total DLP
== END 2021-04-06 02:01 ==
PROVIDERS: PCP Nurse Practitioner; Visit Provider Family Medicine
DX: R05.3 Chronic cough (principal); F17.210 Nicotine dependence, cigarettes, uncomplicated; R09.1 Pleurisy
CPT/HCPCS: 71046

== ENCOUNTER 2021-09-11 07:46 | Emergency (ER) | payer MEDICARE, SELFPAY ==
[2021-09-11] VITALS (14 sets, daily range): BP systolic 95–139; BP diastolic 50–79; PULSE 70–113; RESP 1–27; TEMP 36.7–37; O2SAT 93–97
--- NOTE | 2021-09-11 07:45 | RT.EKG_ITS ---
APPROVED REPORT Exam: Resting ECG Reason for Exam: sob Patient Location: E HR:81 bpm ECG Measurements Heart Rate 81 AXIS RI 146 P 50 QRSd 99 QRS 78 QT 363 T 77 QTc 422 Conclusion Sinus rhythm...normal P axis, V-rate 60- 99 no STEMI, no major change from prior. Non-diagnostic EKG I have reviewed and interpreted ECG and agree with software generated interpretation.
--- NOTE | 2021-09-11 08:00 | DI.RAD_ITS ---
Exam(s) XR CHEST 2V PA LATERAL EXAM: XR CHEST 2V PA LATERAL CLINICAL HISTORY: increased SOB. TECHNIQUE: 2D digital imaging was performed. COMPARISON: CR,XR XR CHEST 2V PA LATERAL from 12/25/2020 CR XR CHEST 2V PA LATERAL from 04/06/2021 FINDINGS: 2 views: Again noted is nodular infiltrate in the right middle lobe just above the hemidiaphragm. Small well- defined nodule also noted slightly above and lateral to this region which is probably a granuloma. N o pleural effusions. No focal left lung findings. Calcified subcarinal adenopathy is again noted. Heart size is normal. The mediastinum is not widened. IMPRESSION: Right lung base infiltrate located in the right middle lobe, as previously noted. Recommend follow-u p CT scan. Cannot exclude malignancy. DATA REPOSITORY: RADIATION DOSE DELIVERED:
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
[2021-09-11 08:21] LABS: Abs Immature Grans 0.02 10^3/uL (0.0-0.06); Absolute Basophil Count 0.01 10^3/uL (0.0-0.2); Absolute Eosinophil Count 0.07 10^3/uL (0.0-0.7); Absolute Lymphocyte Count 1.59 10^3/uL (1.2-3.4); Absolute Monocyte Count 0.31 10^3/uL (0.1-0.8); Absolute Neutrophil Count 3.92 10^3/uL (1.2-6.7); Basophils % 0.2; Eosinophils % 1.2; HCT 40.3 % (36.0-46.0); HGB 13.3 g/dL (11.2-15.7); Immature Grans % 0.3; Lymphocytes % 26.9; MCH 31.1 pg (27.0-33.0); MCV 94.4 fL (80-95); MPV 9.8 fL (8.0-11.0); Monocytes % 5.2; Neutrophils % 66.2; Nucleated RBC 0 %; Platelet Count 173 10^3/uL (130-400); RBC 4.27 10^6/uL (3.93-5.22); RDW 12.6 % (11.7-14.6); RDW-SD 43.6 fL; WBC 5.92 10^3/uL (4.4-10.8)
[2021-09-11 08:39] LABS: ALT 23 U/L (14-59); AST 15 U/L (15-37); Albumin 3.9 g/dL (3.4-5.0); Alkaline Phosphatase 82 U/L (46-116); Anion Gap 7.2 mmol/L (3-11); BUN 13 mg/dL (7-18); Bilirubin, Total 1.8 mg/dL (0.2-1.0); CO2 27.8 mmol/L (21.0-32.0); CREATININE 0.7 mg/dL (0.55-1.02); Calcium 9.1 mg/dL (8.5-10.1); Chloride 106 mmol/L (98-107); Glucose 83 mg/dL (74-106); Potassium 4.1 mmol/L (3.5-5.1); Sodium 141 mmol/L (136-145); Total Protein 7.1 g/dL (6.4-8.2); Troponin I < 50 ng/L (<or=60)
[2021-09-11 09:03] LABS: NT-proBNP 83 pg/mL (<300)
[2021-09-11 09:09] LABS: D-Dimer 428 ng/mlFEU (<500)
--- NOTE | 2021-09-11 09:55 | DI.CT_ITS ---
Exam(s) CT CHEST PE CTA EXAM: CT CHEST PE CTA CLINICAL HISTORY: RLL infitrate, increased SOB. TECHNIQUE: Imaging Protocol: CT angiography of the chest was performed using pulmonary embolus mila col. Multi planar reconstructions were performed. CONTRAST MATERIAL: Intravenous: Omnipaque 350 Contrast volume: 100 cc COMPARISON: CT CT CHEST HIGH RESOLUTION from 12/12/2020 FINDINGS: CHEST: PULMONARY ARTERIES: There are no intraluminal filling defects to suggest acute pulmonary emboli. LUNGS: There is an unchanged subpleural 2 millimeter nodule in the right upper lobe.. Lower down in the right lung there is a peripherally located calcified granuloma measuring 3 millimeters, unchanged . Also atelectasis in the right middle lobe just above the somewhat elevated right hemidiaphragm is again noted. However, this has increased in size, now extending to the lateral pleural surface measu ring 4.6 cm wide by 1.5 cm AP. Other findings previously described in lateral aspect of right lower lobe remain unchanged. No pleural effusion. In the opposite-left lung the previously described mild infiltrate in the left lower lobe has mostly resolved. No pleural effusions on either side. MEDIASTINUM: There is no hilar nor mediastinal adenopathy. Calcified sub carinal lymph nodes again no rita. Visualized thyroid unremarkable. CARDIAC: Heart size is upper normal. There is no pericardial effusion.Caliber of the thoracic aorta is within normal limits. There is no significant shift of the interventricular septum. PARTIALLY VISUALIZED UPPERMOST ABDOMEN: Partially included upper pole right kidney cysts noted, previ ously present. No adrenal masses. Spleen size upper normal. OSSEOUS: No significant osseous lesions.. IMPRESSION: 1. No evidence of acute pulmonary emboli. No evidence of pulmonary infarction.No pleural effusions. 2. Compared to the prior study of 12/12/2020 there has been improvement in the left lower lobe infilt rate which is mostly resolved. However in the right lung base just above the elevated hemidiaphragm is atelectasis again noted and some increasing infiltrate is evident at this level. This is contiguo us with the elevated right hemidiaphragm. Close follow-up of this increasing finding is recommended 3. No intrathoracic adenopathy. Calcified subcarinal lymph node slightly right of center is noted in this patient who has calcified granulomas in the right lung. RADIATION DOSE DELIVERED: 453.34mGy.cm Total DLP DATA REPOSITORY: All CT scans at this facility are submitted to the National Radiology Data Registry (NRDR) Dose Index Registry (DIR) with the [employer] (A[employer]). RADIATION OPTIMIZATION: All CT scans at this facility use at least one of these dose optimization te chniques: automated exposure control; mA and/or kV adjustment per patient size (includes targeted exa ms where dose is matched to clinical indication); or iterative reconstruction.
[2021-09-11] MEDS: Omnipaque 350 MG/ML 100 ML BTL IJ (10:02)
[2021-09-11] MEDS: Albuterol/Ipratropium 3 ML UPD VIAL UPD (11:16)
== END 2021-09-11 13:13 | disposition home or self-care (01) ==
PROVIDERS: Emergency Provider Physician Assistant; PCP Nurse Practitioner
DX: R06.09 Other forms of dyspnea (principal); R91.8 Other nonspecific abnormal finding of lung field; F17.210 Nicotine dependence, cigarettes, uncomplicated
CPT/HCPCS: 36415; 71275; 80053; 93005; 94640; 99285; 71046; 83735; 83880; 84484; 85025; 85379; 93010; 99284; J3490; J7620

== ENCOUNTER → 2021-09-15 09:48 | Outpatient (BNVA) | payer MEDICARE, SELFPAY | PROVIDERS: PCP Nurse Practitioner; Referring Provider Nurse Practitioner | DX: M75.32 Calcific tendinitis of left shoulder (principal) | CPT/HCPCS: 20610; J1040 ==

== ENCOUNTER 2022-06-16 13:02 | Emergency (ER) | payer MEDICARE, SELFPAY ==
--- NOTE | 2022-06-16 12:45 | RT.EKG_ITS ---
APPROVED REPORT Exam: Resting ECG Reason for Exam: weakness Patient Location: E HR:88 bpm ECG Measurements Heart Rate 88 AXIS NC 153 P 52 QRSd 103 QRS 84 QT 412 T 65 QTc 498 Conclusion Sinus rhythm...normal P axis, V-rate 60- 99
[2022-06-16 12:58] VITALS: BP 112/93; PULSE 109; RESP 20; TEMP 36.9; O2SAT 91
[2022-06-16 13:01] VITALS: BP 116/61; PULSE 98; O2SAT 95
[2022-06-16 13:02] VITALS: O2SAT 93
[2022-06-16 13:10] VITALS: PULSE 94; RESP 22; O2SAT 93
[2022-06-16 13:16] VITALS: BP 106/54; PULSE 90; PULSE 93; RESP 19; O2SAT 77
[2022-06-16 13:20] VITALS: PULSE 85; RESP 21; O2SAT 92
[2022-06-16 13:22] LABS: Abs Immature Grans 0.02 10^3/uL (0.0-0.06); Absolute Basophil Count 0.02 10^3/uL (0.0-0.2); Absolute Eosinophil Count 0.09 10^3/uL (0.0-0.7); Absolute Lymphocyte Count 2.29 10^3/uL (1.2-3.4); Absolute Monocyte Count 0.34 10^3/uL (0.1-0.8); Absolute Neutrophil Count 3.56 10^3/uL (1.2-6.7); Basophils % 0.3; Eosinophils % 1.4; HCT 43.1 % (36.0-46.0); HGB 13.8 g/dL (11.2-15.7); Immature Grans % 0.3; Lymphocytes % 36.2; MCH 29.4 pg (27.0-33.0); MCV 92 fL (80-95); MPV 8.9 fL (8.0-11.0); Monocytes % 5.4; Neutrophils % 56.4; Platelet Count 317 10^3/uL (130-400); RDW 12.8 % (11.7-14.6); RDW-SD 43.4 fL; WBC 6.32 10^3/uL (4.4-10.8)
[2022-06-16 13:40] LABS: ALT 23 U/L (14-59); AST 21 U/L (15-37); Albumin 3.5 g/dL (3.4-5.0); Alkaline Phosphatase 100 U/L (46-116); Anion Gap 6.3 mmol/L (3-11); BUN 8 mg/dL (7-18); Bilirubin, Total 0.4 mg/dL (0.2-1.0); CO2 29.7 mmol/L (21.0-32.0); CREATININE 0.7 mg/dL (0.55-1.02); Calcium 9.1 mg/dL (8.5-10.1); Chloride 103 mmol/L (98-107); Estimated GFR 87.37 (mL/min/1.73m2); Glucose 106 mg/dL (74-106); Potassium 3.6 mmol/L (3.5-5.1); Sodium 139 mmol/L (136-145); Total Protein 7.3 g/dL (6.4-8.2); Troponin I < 50 ng/L (<or=60)
[2022-06-16 13:41] LABS: INR 0.9 (0.9-1.1); Prothrombin Time 9.3 sec (9.3-11.0)
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
--- NOTE | 2022-06-16 15:52 | NUR.NOTE ---
Addendum entered by Dayana Patterson 06/17/22 10:48: [facility] called back yesterday and stated that they only had Procto-Med HC 2.5%. Tawanna Infante wrote on the authorization that it was okay to replace with this. Form sent to be scanned with Tawanna Infante notation. Original Note: Nursing Note: Prior authorization printed on fax for the proctofroam HC 1-1% Foam. Per Tawanna Infante, I called [facility] and they can replace whatever item that does not require a prior authorization and will dispense.
== END 2022-06-16 14:39 | disposition home or self-care (01) ==
PROVIDERS: Emergency Provider Physician Assistant; PCP Nurse Practitioner Family
DX: K64.8 Other hemorrhoids (principal); J44.9 Chronic obstructive pulmonary disease, unspecified; Z87.19 Personal history of other diseases of the digestive system; Z90.49 Acquired absence of other specified parts of digestive tract
CPT/HCPCS: 80053; 86850; 86900; 86901; 93005; 99283; 83735; 84484; 85025; 85610; 93010; 99284

== ENCOUNTER 2022-08-02 10:20 | Emergency (ER) | payer MEDICARE, SELFPAY ==
[2022-08-02] VITALS (10 sets, daily range): BP systolic 129–131; BP diastolic 50; PULSE 81–98; RESP 17–26; TEMP 36.9; O2SAT 91–100
--- NOTE | 2022-08-02 11:15 | RT.EKG_ITS ---
APPROVED REPORT Exam: Resting ECG Reason for Exam: shortness of breath Patient Location: E HR:81 bpm ECG Measurements Heart Rate 81 AXIS LA 141 P 7 QRSd 99 QRS 80 QT 385 T 75 QTc 448 Conclusion Sinus rhythm...normal P axis, V-rate 60- 99
--- NOTE | 2022-08-02 11:15 | DI.RAD_ITS ---
Exam(s) XR PORTABLE CHEST AP EXAM: XR PORTABLE CHEST AP CLINICAL HISTORY: cough. TECHNIQUE: 2D digital imaging was performed. COMPARISON: CR CHEST 2 VIEWS PA,LAT from 05/05/2011 CR CHEST 2 VIEWS PA,LAT from 01/10/2016 CR,XR XR CHEST 2V PA LATERAL from 12/25/2020 CR XR CHEST 2V PA LATERAL from 09/11/2021 FINDINGS: Single AP portable view. Heart size is upper normal. The mediastinum is not widened. There is scarring in the right lung base which has been present since at least 2015. Adjacent mild e levation of the right hemidiaphragm is also noted. No other pulmonary findings. No pleural effusion s. No pulmonary edema. No pneumothorax. No fractures. IMPRESSION: Right lung base scarring which appears stable, as well as adjacent mild elevation of the right hemidi aphragm.No obvious new pulmonary findings evident. DATA REPOSITORY: RADIATION DOSE DELIVERED:
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
[2022-08-02] MEDS: Normal Saline 1,000 ML 1000 ML IV (11:43)
[2022-08-02 11:50] LABS: Abs Immature Grans 0.02 10^3/uL (0.0-0.06); Absolute Basophil Count 0.01 10^3/uL (0.0-0.2); Absolute Eosinophil Count 0.01 10^3/uL (0.0-0.7); Absolute Lymphocyte Count 1.31 10^3/uL (1.2-3.4); Absolute Monocyte Count 0.37 10^3/uL (0.1-0.8); Absolute Neutrophil Count 3.17 10^3/uL (1.2-6.7); Basophils % 0.2; Eosinophils % 0.2; HCT 44.9 % (36.0-46.0); HGB 14.9 g/dL (11.2-15.7); Immature Grans % 0.4; Lymphocytes % 26.8; MCH 29.6 pg (27.0-33.0); MCHC 33.2 % (32.0-36.0); MCV 89 fL (80-95); MPV 9.4 fL (8.0-11.0); Monocytes % 7.6; Neutrophils % 64.8; Platelet Count 180 10^3/uL (130-400); RBC 5.03 10^6/uL (3.93-5.22); RDW 13.9 % (11.7-14.6); RDW-SD 45.5 fL; WBC 4.89 10^3/uL (4.4-10.8)
[2022-08-02] MEDS: Dexamethasone 10 MG/ML VIAL IVP (12:00)
[2022-08-02] MEDS: Albuterol/Ipratropium 3 ML UPD VIAL UPD (12:01)
[2022-08-02 12:21] LABS: ALT 20 U/L (14-59); AST 22 U/L (15-37); Albumin 3.5 g/dL (3.4-5.0); Alkaline Phosphatase 82 U/L (46-116); Anion Gap 8.7 mmol/L (3-11); BUN 8 mg/dL (7-18); Bilirubin, Total 1.1 mg/dL (0.2-1.0); CO2 28.3 mmol/L (21.0-32.0); CREATININE 0.7 mg/dL (0.55-1.02); Chloride 100 mmol/L (98-107); Estimated GFR 87.37 (mL/min/1.73m2); Glucose 100 mg/dL (74-106); Magnesium 1.7 mg/dL (1.8-2.4); Sodium 137 mmol/L (136-145); Troponin I < 50 ng/L (<or=60)
== END 2022-08-02 13:23 | disposition home or self-care (01) ==
PROVIDERS: Emergency Provider Emergency Medicine; PCP Nurse Practitioner Family
DX: U07.1 COVID-19 (principal); Z86.16 Personal history of COVID-19
CPT/HCPCS: 36415; 80053; 93005; 96361; 96374; 99284; 99285; 71045; 83735; 84484; 85025; 93010; J1100; J7620

== ENCOUNTER 2022-09-28 12:11 | Emergency (ER) | payer MEDICARE, SELFPAY ==
[2022-09-28] VITALS (15 sets, daily range): BP systolic 117–142; BP diastolic 49–104; PULSE 87–110; RESP 15–27; TEMP 36.9–37; O2SAT 91–95
--- NOTE | 2022-09-28 12:15 | RT.EKG_ITS ---
APPROVED REPORT Exam: Resting ECG Reason for Exam: right sided chest pain Patient Location: E HR:87 bpm ECG Measurements Heart Rate 87 AXIS HI 152 P 67 QRSd 96 QRS 79 QT 374 T 79 QTc 451 Conclusion Sinus rhythm...normal P axis, V-rate 60- 99 Nonspecific T abnrm, anterolateral leads...T <-0.10mV, I aVL V2-V6
--- NOTE | 2022-09-28 12:15 | DI.CT_ITS ---
Exam(s) CT CHEST PE ABD PELVIS W EXAM: CT CHEST PE ABD PELVIS W CLINICAL HISTORY: right sided chest and upper abdomen pain. TECHNIQUE: Imaging Protocol: Axial CT angiography was performed with multi-slice acquisition and mu lti-planar and/or 3D reconstructions. CONTRAST MATERIAL: Intravenous: Omnipaque 350contrast volume:100 mL COMPARISON: CT CT ABDOMEN PELVIS W from 01/22/[address] CHEST PE CTA from 09/11/2021 FINDINGS: CHEST: Tracheobronchial tree: Patent where visualized. Pulmonary parenchyma: Moderate centrilobular emphysematous changes are present. There are calcified granuloma present. There is again seen scarring in the right middle lobe. There is a new linear opa city in the right lung base peripherally. The lungs are otherwise clear. Pulmonary Arteries: No evidence of filling defect to suggest pulmonary emboli. Mediastinum and Zuly: No dominant adenopathy or fluid collection. The esophagus is unremarkable. Ther e is a moderate size hiatal hernia. Visualized thyroid gland: Unremarkable. Pleura: No effusion or pneumothorax. Heart: The heart is not dilated. Mild coronary artery calcification. No pericardial effusion. Aorta: Thoracic aorta non-dilated. No evidence of dissection. Atherosclerosis. Bones: Within normal limits for the patient's age. Soft tissues: Unremarkable. ABDOMEN: Liver: Normal density. No measurable mass. Unchanged area of decreased attenuation in the liver infer iorly. There is unchanged mild intrahepatic biliary ductal dilatation. Portal, Superior Mesenteric, and Splenic Veins: Unremarkable. Gallbladder and Biliary Tract: Status post cholecystectomy. Stable extrahepatic biliary ductal dilat ation. Pancreas: Normal density, no abnormal calcifications or inflammatory process. Spleen: Normal. Adrenals: No masses seen. Kidneys: Normal size, contour and axis. No radiodense stones or obstructive uropathy. There again see n right renal cysts which are stable. No follow-up is recommended. Abdominal Aorta: Abdominal portion non-dilated. Atherosclerosis is present. Bowel: There is diverticulosis of the colon but no evidence of acute diverticulitis. There is again seen a large duodenal diverticulum. No evidence of appendicitis. No evidence of bowel obstruction o r bowel inflammation. Peritoneal Cavity: No ascites, collection or mesenteric inflammatory response. No free air. Lymph Nodes: Within normal limits. Bones: Within normal limits for the patient's age. The patient has a left total hip replacement. Soft Tissues: There is [id number] fatty atrophy of the pelvic musculature. PELVIS: Bladder: Symmetric distention, no gross wall thickening. Reproductive Organs: There are again seen calcified uterine fibroids. Lymph Nodes: Within normal limits. Bones: Within normal limits. IMPRESSION: 1. No evidence pulmonary embolism, thoracic aortic dissection or aneurysm. 2. Scarring or atelectasis in the right lower lobe. 3. No acute abdominal or pelvic process. 4. Stable incidental finding in the chest abdomen and pelvis as described above. 5. Findings were discussed with Dr. Arriola at 2:05 p.m. on 09/28/2022. RADIATION DOSE DELIVERED: 1,472.35mGy.cm Total DLP DATA REPOSITORY: All CT scans at this facility are submitted to the National Radiology Data Registry (NRDR) Dose Index Registry (DIR) with the [employer] (ACR). RADIATION OPTIMIZATION: All CT scans at this facility use at least one of these dose optimization te chniques: automated exposure control; mA and/or kV adjustment per patient size (includes targeted exa ms where dose is matched to clinical indication); or iterative reconstruction.
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
[2022-09-28 12:41] LABS: Abs Immature Grans 0.04 10^3/uL (0.0-0.06); Absolute Basophil Count 0.02 10^3/uL (0.0-0.2); Absolute Eosinophil Count 0.23 10^3/uL (0.0-0.7); Absolute Lymphocyte Count 1.82 10^3/uL (1.2-3.4); Absolute Monocyte Count 0.58 10^3/uL (0.1-0.8); Absolute Neutrophil Count 7.45 10^3/uL (1.2-6.7); Basophils % 0.2; Eosinophils % 2.3; HCT 41.2 % (36.0-46.0); HGB 13.8 g/dL (11.2-15.7); Immature Grans % 0.4; Lymphocytes % 17.9; MCH 31.1 pg (27.0-33.0); MCHC 33.5 % (32.0-36.0); MCV 93 fL (80-95); MPV 8.9 fL (8.0-11.0); Monocytes % 5.7; Neutrophils % 73.5; Platelet Count 260 10^3/uL (130-400); RBC 4.44 10^6/uL (3.93-5.22); RDW 14.4 % (11.7-14.6); RDW-SD 49.4 fL; WBC 10.14 10^3/uL (4.4-10.8)
[2022-09-28] MEDS: Normal Saline Flush 10 ML SYR IVP (12:45)
[2022-09-28] MEDS: Aspirin 81 MG CHEW 324 MG CH (12:52)
[2022-09-28] MEDS: ACETAMINOPHEN 1,000 MG/100 ML BTL 400 MG IVPB (12:53)
[2022-09-28 12:55] LABS: INR 0.9 (0.9-1.1); PTT Activated 25.9 sec (21.5-31.9); Prothrombin Time 9.6 sec (9.3-11.0)
[2022-09-28] MEDS: methylPREDNISolone SUCC 125 MG VIAL IVP (12:56)
[2022-09-28 13:05] LABS: ALT 16 U/L (14-59); AST 13 U/L (15-37); Albumin 3.4 g/dL (3.4-5.0); Alkaline Phosphatase 84 U/L (46-116); BUN 10 mg/dL (7-18); Bilirubin, Total 0.6 mg/dL (0.2-1.0); CREATININE 0.6 mg/dL (0.55-1.02); Calcium 9.2 mg/dL (8.5-10.1); Chloride 100 mmol/L (98-107); Estimated GFR 90.68 (mL/min/1.73m2); Glucose 120 mg/dL (74-106); Magnesium 1.8 mg/dL (1.8-2.4); NT-proBNP 119 pg/mL (<300); Sodium 137 mmol/L (136-145); Total Protein 6.8 g/dL (6.4-8.2); Troponin I < 50 ng/L (<or=60)
--- NOTE | 2022-09-28 13:12 | NUR.NOTE ---
Nursing Note: Call placed to Pharmacy, spoke with Aarti Pharmacist awaiting medication arrival.
[2022-09-28 13:20] LABS: COVID-19 PCR Negative (Negative); Influenza A PCR Negative (Negative); Influenza B PCR Negative (Negative); RSV PCR Negative (Negative)
[2022-09-28] MEDS: Normal Saline - Diluent 50 ML VIAL IJ (13:25)
[2022-09-28] MEDS: Omnipaque 350 MG/ML 100 ML BTL IJ (13:28)
[2022-09-28 13:31] LABS: Source Nasopharynx
--- NOTE | 2022-09-28 14:13 | NUR.NOTE ---
Nursing Note: Dr Arriola at pt's bedside, evaluation reviewed and disposition plan with pt, pt engaged in conversation/discussion, disposition planned for discharge to home, pending additional lab and urine. Pt in agreement with plan. Pt denies pain at this time, VSS..
[2022-09-28] MEDS: Ipratropium/Albuterol 4 GM 120 PUFF INH IH (14:30)
[2022-09-28 14:44] LABS: Troponin I < 50 ng/L (<or=60)
[2022-09-28 14:52] LABS: Bilirubin Negative (Negative); Blood Small (Negative); Clarity Cloudy (Clear); Glucose Negative (Negative); Ketones Negative (Negative); Leukocyte Esterase Negative (Negative); Nitrite Positive (Negative); Urobilinogen 0.2 mg/dL (Up to 0.2); pH 5.5 (5-8)
[2022-09-28 15:00] LABS: Bacteria Many HPF (Negative); C & S Indicated? Yes; Casts Negative LPF (Negative); Crystals Negative HPF (Negative); Epithelial Cells Few HPF (Negative); Mucus Trace (Negative)
--- NOTE | 2022-10-01 19:32 | W.ED.FU ---
Date of service: 10/01/22 Time of Service: 19:33 Follow Up Plan: Urine culture growing greater than 100,000 E. coli that is pansensitive. I reviewed ED chart and patient did have urinalysis concerning for positive nitrite and 5-10 WBCs. It does not look like she had urinary symptoms during visit but did have abdominal pain. I called the patient at number listed in the chart and no one picked up. I left a message for her to call back to the emergency department. Plan to assess current symptoms and determine if course of antibiotic warranted.
== END 2022-09-28 15:09 | disposition home or self-care (01) ==
PROVIDERS: Emergency Provider Emergency Medicine; PCP Nurse Practitioner Family
DX: R10.11 Right upper quadrant pain (principal); R07.89 Other chest pain; J44.9 Chronic obstructive pulmonary disease, unspecified; E78.5 Hyperlipidemia, unspecified; Z86.16 Personal history of COVID-19; Z87.891 Personal history of nicotine dependence; Z20.822 Contact with and (suspected) exposure to COVID-19
CPT/HCPCS: 36415; 71275; 74177; 80053; 87077; 87637; 93005; 96365; 96374; 96375; 99285; 81003; 81015; 83735; 83880; 84484; 85025; 85610; 85730; 87086; 87186; 93010; J0131; J2930; J3490

== ENCOUNTER 2023-01-21 19:42 | Inpatient (IN) | payer MEDICARE, MEDICAID, SELFPAY ==
[2023-01-21] VITALS (106 sets, daily range): BP systolic 99–135; BP diastolic 51–70; PULSE 93–105; RESP 13–27; TEMP 36.6–37.2; O2SAT 90–98
--- NOTE | 2023-01-21 19:30 | RT.EKG_ITS ---
APPROVED REPORT Exam: Resting ECG Reason for Exam: sob Patient Location: E HR:91 bpm ECG Measurements Heart Rate 91 AXIS SD 145 P 14 QRSd 98 QRS 81 QT 359 T 81 QTc 441 Conclusion Sinus rhythm...V-rate 60- [address] segment or T wave abnormalities to suggest occlusive MA
--- NOTE | 2023-01-21 19:45 | DI.RAD_ITS ---
Exam(s) XR CHEST 2V PA LATERAL EXAM: XR CHEST 2V PA LATERAL CLINICAL HISTORY: shortness of breath TECHNIQUE: 2D digital imaging was performed. COMPARISON: CR XR CHEST 2V PA LATERAL from 09/11/2021 CR XR PORTABLE CHEST AP from 08/02/[address] CHEST PE ABD PELVIS W from 09/28/2022 FINDINGS: Leads overlie the chest. Lungs suboptimally inflated on AP view. HEART: Normal size. Aorta: Not dilated. PULMONARY VASCULATURE: Normal. LUNGS: Scarring right lung base. Mild fibrotic changes. No consolidation. PLEURAL SPACE: No pleural effusion or pneumothorax. BONE:Unremarkable for age. Small hiatal hernia noted. IMPRESSION: No acute abnormality. DATA REPOSITORY: RADIATION DOSE DELIVERED:
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
[2023-01-21] MEDS: Albuterol/Ipratropium 3 ML UPD VIAL UPD (20:00)
[2023-01-21 20:02] LABS: Abs Immature Grans 0.02 10^3/uL (0.0-0.06); Absolute Basophil Count 0.02 10^3/uL (0.0-0.2); Absolute Eosinophil Count 0.19 10^3/uL (0.0-0.7); Absolute Lymphocyte Count 2.04 10^3/uL (1.2-3.4); Absolute Monocyte Count 0.33 10^3/uL (0.1-0.8); Absolute Neutrophil Count 2.97 10^3/uL (1.2-6.7); Basophils % 0.4; Eosinophils % 3.4; HCT 43.3 % (36.0-46.0); HGB 14.3 g/dL (11.2-15.7); Immature Grans % 0.4; Lymphocytes % 36.6; MCH 31.5 pg (27.0-33.0); MCV 95 fL (80-95); MPV 9.4 fL (8.0-11.0); Monocytes % 5.9; Neutrophils % 53.3; Platelet Count 207 10^3/uL (130-400); RBC 4.54 10^6/uL (3.93-5.22); RDW 13.9 % (11.7-14.6); RDW-SD 48.7 fL; WBC 5.57 10^3/uL (4.4-10.8)
--- NOTE | 2023-01-21 20:15 | DI.VRAD_ITS ---
PROCEDURE INFORMATION: Exam: XR Chest Exam date and time: 01/21/2023 8:08 PM Age: 82 years old Clinical indication: Shortness of breath; Patient HX: SOB TECHNIQUE: Imaging protocol: Radiologic exam of the chest. Views: 2 views. COMPARISON: CR XR PORTABLE CHEST AP 08/02/2022 11:34 AM FINDINGS: Lungs: Mild subsegmental atelectasis versus scarring. No consolidation. Pleural spaces: No pleural effusion. No pneumothorax. Heart/Mediastinum: Grossly stable. Bones/joints: Unremarkable. IMPRESSION: Mild basilar subsegmental atelectasis versus scarring Dictated and Authenticated by: Dwight Lugo MD. Ordering:CECY Guerrero MD
[2023-01-21 20:27] LABS: ALT 15 U/L (14-59); AST 13 U/L (15-37); Albumin 3.5 g/dL (3.4-5.0); Alkaline Phosphatase 75 U/L (46-116); Anion Gap 9.9 mmol/L (3-11); BUN 8 mg/dL (7-18); Bilirubin, Total 0.6 mg/dL (0.2-1.0); CO2 27.1 mmol/L (21.0-32.0); CREATININE 0.7 mg/dL (0.55-1.02); Chloride 104 mmol/L (98-107); Estimated GFR 87.37 (mL/min/1.73m2); Glucose 96 mg/dL (74-106); Magnesium 1.8 mg/dL (1.8-2.4); NT-proBNP 231 pg/mL (<300); Potassium 3.5 mmol/L (3.5-5.1); Sodium 141 mmol/L (136-145); Total Protein 6.7 g/dL (6.4-8.2); Troponin I < 50 ng/L (<or=60)
[2023-01-21] MEDS: Dexamethasone 10 MG/ML VIAL IVP (21:29)
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
[2023-01-21 22:10] LABS: D-Dimer 482 ng/mlFEU (<500)
--- NOTE | 2023-01-21 22:10 | NUR.NOTE ---
Nursing Note: Report to Judy WARD. Patient to go to 228 shortly.
[2023-01-21 22:13] LABS: COVID-19 PCR Negative (Negative); Influenza A PCR Negative (Negative); Influenza B PCR Negative (Negative); RSV PCR Negative (Negative)
[2023-01-21 22:14] LABS: Source Nasopharynx
[2023-01-21 23:24] LABS: Troponin I < 50 ng/L (<or=60)
[2023-01-21] MEDS: Enoxaparin 40 MG/0.4 ML SYR SC (23:50)
[2023-01-21] MEDS: Albuterol 2.5 MG/3 ML INH SOLN VIAL UPD (23:51)
[2023-01-22] VITALS (10 sets, daily range): BP systolic 114–137; BP diastolic 69–73; PULSE 99–111; RESP 1–22; TEMP 36–37; O2SAT 93–98
[2023-01-22] MEDS: LORazepam 0.5 MG TAB PO ×2 (04:00→18:05)
[2023-01-22] MEDS: Normal Saline Flush 10 ML SYR IVP (06:17)
[2023-01-22] MEDS: methylPREDNISolone SUCC 40 MG VIAL IVP ×2 (06:17→14:31)
[2023-01-22 07:29] LABS: Abs Immature Grans 0.01 10^3/uL (0.0-0.06); Absolute Basophil Count 0.01 10^3/uL (0.0-0.2); Absolute Lymphocyte Count 0.81 10^3/uL (1.2-3.4); Absolute Monocyte Count 0.04 10^3/uL (0.1-0.8); Absolute Neutrophil Count 3.38 10^3/uL (1.2-6.7); Basophils % 0.2; HCT 42.7 % (36.0-46.0); HGB 14.1 g/dL (11.2-15.7); Immature Grans % 0.2; Lymphocytes % 19.1; MCH 31.7 pg (27.0-33.0); MCV 96 fL (80-95); MPV 9.4 fL (8.0-11.0); Monocytes % 0.9; Neutrophils % 79.6; Platelet Count 198 10^3/uL (130-400); RBC 4.45 10^6/uL (3.93-5.22); RDW 13.8 % (11.7-14.6); RDW-SD 48.5 fL; WBC 4.25 10^3/uL (4.4-10.8)
[2023-01-22 07:35] LABS: Anion Gap 5.4 mmol/L (3-11); BUN 7 mg/dL (7-18); CO2 28.6 mmol/L (21.0-32.0); CREATININE 0.7 mg/dL (0.55-1.02); Chloride 106 mmol/L (98-107); Estimated GFR 87.37 (mL/min/1.73m2); Glucose 160 mg/dL (74-106); Magnesium 1.8 mg/dL (1.8-2.4); Sodium 140 mmol/L (136-145)
[2023-01-22] MEDS: Doxycycline Hyclate 100 MG CAP PO ×2 (07:53→20:15)
[2023-01-22 08:25] LABS: Lab Add On Test DONE
[2023-01-22] MEDS: Albuterol 2.5 MG/3 ML INH SOLN VIAL UPD ×2 (08:27→20:16)
[2023-01-22] MEDS: Budesonide 0.5 MG/2 ML UPD VIAL UPD ×2 (08:29→20:15)
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
[2023-01-22 10:38] LABS: Procalcitonin < 0.1 ng/mL
[2023-01-22] MEDS: Albuterol/Ipratropium 3 ML UPD VIAL UPD ×2 (13:11→18:29)
--- NOTE | 2023-01-22 15:39 | PT.INTREAT ---
Date of service: 01/22/23 Time of Service: 13:47 PT Notes Visit Reasons: Acute Hypoxic Respiratory Failure, COPD Inpatient Physical Therapy Treatment Note [facility] Date: 01/22/23 PRECAUTIONS: Fall, standard, activity as tolerated, 2L/min supplemental O2, SaO2 device on bedside table with sensor on LUE, IV access RUE. SUBJECTIVE: Patient supine in bed, agreeable to therapy. Reports being significantly fatigued. Patient remarks she hopes we found a real doctor this time. Expresses frustration with the lack of answers she has received about what is causing her condition. OBJECTIVE: PAIN: none reported BED MOBILITY/TRANSFERS Rolling L/R: independent Supine-sit: independent with HOB elevatedd Sit-supine: independent Sit-stand: independent with FWW Stand-sit: independent Bed-Chair: independent with FWW Chair-bed: independent with FWW THEREX: seated marching, heel raises, toe raises, LAQ's, hip ab/adduction, sit to stands x4, standing marches ASSESSMENT: patient monitors her own HR and SaO2, seems preoccupied with the numbers. Reports sitting up for even 5 minutes seems to wear her out until she has no energy left at all. Appears to tolerate therapy well, but insists on being left alone to rest after a fairly short treatment. PLAN: continue global strength and conditioning per plan of care TREATMENT CODE/TIME: 97169 ther ex 19 minutes beginning at 13:47
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
--- NOTE | 2023-01-22 19:18 | W.PM.PROGNOT ---
Date of Service Date of service: 01/22/23 Time of Service: 19:18 Assessment and Plan Assessment and plan (1) COPD exacerbation: Status: Acute Assessment and plan: Decrease steroids. Continue scheduled + prn nebs, empiric doxycycline. Encourage pulmonary toilet. (2) Acute respiratory failure with hypoxia: Status: Acute Assessment and plan: Due to above As above (3) Acute bronchitis: Status: Acute Assessment and plan: As above (4) Anxiety: Status: Chronic Assessment and plan: Used to be on mirtazapine. Will provide prn lorazepam for now and decrease the dose of steroid. Consider resumption of mirtazapine. (5) Abnormal gait: Assessment and plan: Continue PT/OT (6) DVT prophylaxis: Status: Acute Assessment and plan: SC enoxaparin (7) Discharge planning issues: Status: Acute Assessment and plan: Full code C/S PT, OT, palliative care Subjective Subjective Interval history since last seen: Breathing is better, but still very anxious. Denies dizziness, CP, n/v. Remains on 2L of O2 by NC. Exam Narrative Exam Narrative: General: Very anxious elderly female who is A&Ox3, no dyspnea/tachypnea/cyanosis, on 2L of O2 by NC HEENT: EOMI, MMM Heart: RRR, no m/r/g Lungs: CTAB Abdomen: soft, nontender, nondistended Extremities: no edema BLEs Objective Last Vital Signs Temp 37.0 C 01/22/23 15:20 Pulse 104 H 01/22/23 18:29 Resp 16 01/22/23 18:29 BP 128/70 01/22/23 15:20 Pulse Ox 95 01/22/23 18:29 Laboratory Results - last 24 hr 01/21/23 01/21/23 01/21/23 19:38 19:49 19:49 WBC 5.57 RBC 4.54 Hgb 14.3 Hct 43.3 MCV 95 MCH 31.5 MCHC 33.0 RDW 13.9 Plt Count 207 MPV 9.4 Immature Gran % 0.4 Neutrophils % 53.3 Lymphocytes % 36.6 Monocytes % 5.9 Eosinophils % 3.4 Basophils % 0.4 Nucleated RBC % 0.0 Absolute Neutrophils 2.97 Absolute Lymphocytes 2.04 Absolute Monocytes 0.33 Absolute Eosinophils 0.19 Absolute Basophils 0.02 D-Dimer 482 Sodium 141 Potassium 3.5 Chloride 104 Carbon Dioxide 27.1 Anion Gap 9.9 BUN 8 Creatinine 0.7 Est GFR (CKD-EPI 2020) 87.37 Glucose 96 Calcium 9.0 Magnesium 1.8 Total Bilirubin 0.6 AST 13 L ALT 15 Alkaline Phosphatase 75 Troponin I < 50 NT-Pro-B Natriuret Pep 231 Total Protein 6.7 Albumin 3.5 Procalcitonin COVID-19 Source SARS-CoV-2 (PCR) Influenza Type A (PCR) Influenza Type B (PCR) RSV (PCR) Add-On Test Request 01/21/23 01/21/23 01/21/23 21:32 21:58 22:51 WBC RBC Hgb Hct MCV MCH MCHC RDW Plt Count MPV Immature Gran % Neutrophils % Lymphocytes % Monocytes % Eosinophils % Basophils % Nucleated RBC % Absolute Neutrophils Absolute Lymphocytes Absolute Monocytes Absolute Eosinophils Absolute Basophils D-Dimer Cancelled Sodium Potassium Chloride Carbon Dioxide Anion Gap BUN Creatinine Est GFR (CKD-EPI 2020) Glucose Calcium Magnesium Total Bilirubin AST ALT Alkaline Phosphatase Troponin I < 50 NT-Pro-B Natriuret Pep Total Protein Albumin Procalcitonin COVID-19 Source Nasopharynx SARS-CoV-2 (PCR) Negative Influenza Type A (PCR) Negative Influenza Type B (PCR) Negative RSV (PCR) Negative Add-On Test Request 01/22/23 01/22/23 01/22/23 06:40 06:40 06:40 WBC 4.25 L RBC 4.45 Hgb 14.1 Hct 42.7 MCV 96 H MCH 31.7 MCHC 33.0 RDW 13.8 Plt Count 198 MPV 9.4 Immature Gran % 0.2 Neutrophils % 79.6 Lymphocytes % 19.1 Monocytes % 0.9 Eosinophils % 0.0 Basophils % 0.2 Nucleated RBC % 0.0 Absolute Neutrophils 3.38 Absolute Lymphocytes 0.81 L Absolute Monocytes 0.04 L Absolute Eosinophils 0.00 Absolute Basophils 0.01 D-Dimer Sodium 140 Potassium 4.0 Chloride 106 Carbon Dioxide 28.6 Anion Gap 5.4 BUN 7 Creatinine 0.7 Est GFR (CKD-EPI 2020) 87.37 Glucose 160 H Calcium 9.0 Magnesium 1.8 Total Bilirubin AST ALT Alkaline Phosphatase Troponin I NT-Pro-B Natriuret Pep Total Protein Albumin Procalcitonin COVID-19 Source SARS-CoV-2 (PCR) Influenza Type A (PCR) Influenza Type B (PCR) RSV (PCR) Add-On Test Request DONE 01/22/23 06:40 WBC RBC Hgb Hct MCV MCH MCHC RDW Plt Count MPV Immature Gran % Neutrophils % Lymphocytes % Monocytes % Eosinophils % Basophils % Nucleated RBC % Absolute Neutrophils Absolute Lymphocytes Absolute Monocytes Absolute Eosinophils Absolute Basophils D-Dimer Sodium Potassium Chloride Carbon Dioxide Anion Gap BUN Creatinine Est GFR (CKD-EPI 2020) Glucose Calcium Magnesium Total Bilirubin AST ALT Alkaline Phosphatase Troponin I NT-Pro-B Natriuret Pep Total Protein Albumin Procalcitonin < 0.1 COVID-19 Source SARS-CoV-2 (PCR) Influenza Type A (PCR) Influenza Type B (PCR) RSV (PCR) Add-On Test Request PAWSS Have you Been Recently Intoxicated or Drunk Within the Last 30 days?: No Have you Ever Experienced Previous Episodes of Alcohol Withdrawal?: No Have you ever Experienced Withdrawal Seizures?: No Have you ever Experienced Delirium Tremens(DT)s?: No Have you ever undergone Alcohol Rehabilitation Treatment (i.e, inpt ot outpatient treatment programs)?: No Have you ever Experienced Blackouts?: No Have you ever Combined Alcohol with other Downers within the last 90 days?: No Have you ever Combined Alcohol with any other Substance of Abuse during the last 90 days?: No Positive Blood Alcohol level on Presentation? [PCS.BAL]: No Evidence of Increased Autonomic Activity (i.e. HR>120, tremor, sweating, agitation, nausea)?: No Result: 0 Time Spent with Patient Time Spent with Patient: 25-34 minutes Time was spent: preparing to see the patient(eg.review tests), obtaining and/or reviewing separately otained hiistory, ordering medications,tests, procedures, referring, communicating with other health after school caregiver, indepentently interpreting results, counseling the patient and care coordination
[2023-01-22] MEDS: Mirtazapine 15 MG TAB 7.5 MG PO (20:24)
[2023-01-22] MEDS: Calcium Carbonate *TUMS* 500 MG CHEW 1000 MG PO (22:19)
[2023-01-23] VITALS (17 sets, daily range): BP systolic 98–111; BP diastolic 61–69; PULSE 85–111; RESP 1–28; TEMP 36.2–36.9; O2SAT 88–96
[2023-01-23] MEDS: Albuterol/Ipratropium 3 ML UPD VIAL UPD ×5 (01:02→23:41)
[2023-01-23 07:31] LABS: Abs Immature Grans 0.04 10^3/uL (0.0-0.06); Absolute Basophil Count 0.01 10^3/uL (0.0-0.2); Absolute Lymphocyte Count 1.12 10^3/uL (1.2-3.4); Absolute Monocyte Count 0.43 10^3/uL (0.1-0.8); Absolute Neutrophil Count 6.54 10^3/uL (1.2-6.7); Basophils % 0.1; HCT 41.3 % (36.0-46.0); HGB 13.5 g/dL (11.2-15.7); Immature Grans % 0.5; Lymphocytes % 13.8; MCH 31.5 pg (27.0-33.0); MCHC 32.7 % (32.0-36.0); MCV 96 fL (80-95); MPV 9.3 fL (8.0-11.0); Monocytes % 5.3; Neutrophils % 80.3; Platelet Count 192 10^3/uL (130-400); RBC 4.29 10^6/uL (3.93-5.22); RDW-SD 49.7 fL; WBC 8.14 10^3/uL (4.4-10.8)
[2023-01-23 07:50] LABS: Anion Gap 7.1 mmol/L (3-11); BUN 12 mg/dL (7-18); CO2 28.9 mmol/L (21.0-32.0); CREATININE 0.6 mg/dL (0.55-1.02); Calcium 9.4 mg/dL (8.5-10.1); Chloride 107 mmol/L (98-107); Estimated GFR 90.68 (mL/min/1.73m2); Glucose 113 mg/dL (74-106); Magnesium 1.9 mg/dL (1.8-2.4); Sodium 143 mmol/L (136-145)
[2023-01-23 07:56] LABS: C-Reactive Protein < 0.05 mg/dL (0.0-0.3)
[2023-01-23] MEDS: Budesonide 0.5 MG/2 ML UPD VIAL UPD ×2 (08:15→20:15)
[2023-01-23] MEDS: Albuterol 2.5 MG/3 ML INH SOLN VIAL UPD ×2 (08:15→21:35)
[2023-01-23] MEDS: predniSONE 20 MG TAB 40 MG PO (08:27)
[2023-01-23] MEDS: Omeprazole 20 MG CAPCR PO (08:27)
[2023-01-23] MEDS: Doxycycline Hyclate 100 MG CAP PO ×2 (08:27→21:36)
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
--- NOTE | 2023-01-23 14:39 | CMPROGNOTE_ITS ---
Date of service: 01/23/23 Time of Service: 14:40 Care Management Progress Note Progress Note Text Progress Note Text: S/O: Carolyn was sitting up in her chair eating lunch when CM met with her. She was pleasant and engaged well in conversation. She stated that he feels much better, and was able to walk around the nursing loop with PT. She reported that if she is being discharged, her son will be available to pick her up, as he is on stand by. Per report, she was weaned off O2, and is 92% on RA. CM will continue to follow. A: Carolyn is an 82 year old female admitted to [facility] on 01/21/23 for Acute hypoxic respiratory failure, COPD. P: Anticipate Carolyn will return home once medically cleared. She may benefit from PT; CM will continue to discuss. Her son will drive her home via private vehicle. She will follow up with her PCP and discharge plan of care. CM will continue to follow.
--- NOTE | 2023-01-23 14:46 | PGE_ITS ---
Date of Service Date of service: 01/23/23 Time of Service: 14:46 Assessment and Plan Assessment and plan (1) COPD exacerbation: Status: Acute Assessment and plan: Continue steroids. Continue scheduled + prn nebs, Continue doxycycline. Encourage pulmonary toilet. RA, back to baseline p SPO2 > 93% (2) Acute respiratory failure with hypoxia: Status: Acute Assessment and plan: Due to above As above (3) Acute bronchitis: Status: Acute Assessment and plan: As above (4) Anxiety: Status: Chronic Assessment and plan: Will provide prn lorazepam for now and continue steroid. Resume mirtazapine. (5) Abnormal gait: Assessment and plan: Continue PT/OT (6) DVT prophylaxis: Status: Acute Assessment and plan: SC enoxaparin (7) Discharge planning issues: Status: Acute Assessment and plan: Full code HH PT, OT on DC Discussed w Dr Haq Subjective Subjective Patient reports: no new complaints, tolerating a regular diet, voiding w/o difficulty, bowel movement and afebrile; denies diarrhea, nausea or vomiting Interval history since last seen: Bernadette is awake and alert, oriented. She has no complaints. She does not want SNF but does agree to HH PT/OT at this time She is on RA and is at baseline, continues to have sig anxiety, but not more than baseline Exam Narrative Exam Narrative: General: Alert, in no acute distress. Head: Normocephalic, atraumatic Neck: Trachea midline, Neck supple. ENT: MMM. No oropharygeal lesions or exudate. Cardiac: RRR, no murmurs Resp: No increased work of breathing. Lungs distant, clear Abd: Soft, non-distended, nontender : No suprapubic tenderness. Extremities: No deformities. No peripheral edema. Neurologic: GCS 15. Moves all extremities freely against gravity Objective Last Vital Signs Temp 36.9 C 01/23/23 10:55 Pulse 100 H 01/23/23 13:11 Resp 28 H 01/23/23 13:11 BP 108/69 01/23/23 10:55 Pulse Ox 92 01/23/23 13:06 Laboratory Results - last 24 hr 01/23/23 01/23/23 07:10 07:10 WBC 8.14 RBC 4.29 Hgb 13.5 Hct 41.3 MCV 96 H MCH 31.5 MCHC 32.7 RDW 14.0 Plt Count 192 MPV 9.3 Immature Gran % 0.5 Neutrophils % 80.3 Lymphocytes % 13.8 Monocytes % 5.3 Eosinophils % 0.0 Basophils % 0.1 Nucleated RBC % 0.0 Absolute Neutrophils 6.54 Absolute Lymphocytes 1.12 L Absolute Monocytes 0.43 Absolute Eosinophils 0.00 Absolute Basophils 0.01 Sodium 143 Potassium 4.0 Chloride 107 Carbon Dioxide 28.9 Anion Gap 7.1 BUN 12 Creatinine 0.6 Est GFR (CKD-EPI 2020) 90.68 Glucose 113 H Calcium 9.4 Magnesium 1.9 C-Reactive Protein < 0.05 PAWSS Have you Been Recently Intoxicated or Drunk Within the Last 30 days?: No Have you Ever Experienced Previous Episodes of Alcohol Withdrawal?: No Have you ever Experienced Withdrawal Seizures?: No Have you ever Experienced Delirium Tremens(DT)s?: No Have you ever undergone Alcohol Rehabilitation Treatment (i.e, inpt ot outpatient treatment programs)?: No Have you ever Experienced Blackouts?: No Have you ever Combined Alcohol with other Downers within the last 90 days?: No Have you ever Combined Alcohol with any other Substance of Abuse during the last 90 days?: No Positive Blood Alcohol level on Presentation? [PCS.BAL]: No Evidence of Increased Autonomic Activity (i.e. HR>120, tremor, sweating, agitati on, nausea)?: No Result: 0 Time Spent with Patient Time Spent with Patient: 25-34 minutes Time was spent: preparing to see the patient(eg.review tests), obtaining and/or reviewing separately otained hiistory, indepentently interpreting results, counseling the patient and care coordination
--- NOTE | 2023-01-23 15:48 | PT.INTREAT ---
Date of service: 01/23/23 Time of Service: 10:03 PT Notes Visit Reasons: Acute Hypoxic Respiratory Failure, COPD Inpatient Physical Therapy Treatment Note [facility] Date: 01/23/23 PRECAUTIONS: Fall, standard, activity as tolerated. SUBJECTIVE: Patient feeling stronger and better, breathing room air (no supplemental O2) SaO2 hovering 90-92. Sitting EOB, agreeable to therapy. AFTERNOON: Patient supine in bed, agreeable to therapy. OBJECTIVE: PAIN: none reported BED MOBILITY/TRANSFERS Rolling L/R: Independent Supine-sit: Independent Sit-supine: Independent Sit-stand: Independent Stand-sit: Independent Bed-Chair: Independent Chair-bed: Independent GAIT Assistive Device: FWW Weight bearing: full Assist: SBA, this therapist closely monitoring HR and SaO2. Patient wants frequent reassurance that her numbers look ok. Distance: 200 feet AFTERNOON: 200 feet Deviation: Shortened stride length, reduced step height, very concerned about her SaO2. AFTERNOON Patient requires more frequent standing rest breaks. VITALS: SaO2 stays around 89-92 AFTERNOON: desats to 85, recovers in under 2 minutes once seated, still on room air. ASSESSMENT: Patient tolerates therapy well. PLAN: Continue progressing per plan of care until patient is medically ready for discharge. TREATMENT CODE/TIME: 90655 Gait 15 minutes beginning at 10:03. AFTERNOON: 12428 Ther Ex 11 minutes beginning at 14:34.
[2023-01-23] MEDS: LORazepam 0.5 MG TAB PO (18:47)
[2023-01-23] MEDS: Enoxaparin 40 MG/0.4 ML SYR SC (21:35)
[2023-01-23] MEDS: Mirtazapine 15 MG TAB 7.5 MG PO (21:36)
[2023-01-24] VITALS (13 sets, daily range): BP systolic 111–123; BP diastolic 72–77; PULSE 82–114; RESP 1–26; TEMP 36.7–37.1; O2SAT 78–94
[2023-01-24] MEDS: Albuterol/Ipratropium 3 ML UPD VIAL UPD ×2 (04:49→13:00)
[2023-01-24] MEDS: Doxycycline Hyclate 100 MG CAP PO (07:56)
[2023-01-24] MEDS: predniSONE 20 MG TAB 40 MG PO (07:56)
[2023-01-24] MEDS: Normal Saline Flush 10 ML SYR IVP (07:57)
[2023-01-24] MEDS: Omeprazole 20 MG CAPCR PO (07:57)
--- NOTE | 2023-01-24 08:31 | OT.INNT ---
Occupational Therapy Notes 01/24/23 OT attempted to see pt who reports that she does not need help with her ADL/IADL routines. She reports that she can perform everything (I) and it is just her breathing. She denies all education on energy conservation, bathing, dressing and grooming routines this morning. OT will attempt to see pt tomorrow if she is still here pending her willingness to participate in ADL performance. Sydni Hinkle, OTR/L
[2023-01-24] MEDS: Budesonide 0.5 MG/2 ML UPD VIAL UPD (08:57)
--- NOTE | 2023-01-24 09:19 | PT.INTREAT ---
Date of service: 01/24/23 Time of Service: 09:19 PT Notes Visit Reasons: Acute Hypoxic Respiratory Failure, COPD Inpatient Physical Therapy Treatment Note [facility] Date: 01/24/23 PRECAUTIONS: Fall, standard, activity as tolerated. SUBJECTIVE: Patient agitated, wants to go home, states I hope they keep their word! Sitting EOB, agreeable to therapy. OBJECTIVE: PAIN: none reported BED MOBILITY/TRANSFERS Sit-stand: independent Stand-sit: independent Bed-Chair: independent Chair-bed: independent GAIT Assistive Device: FWW Weight bearing: full Assist: standby, assist with O2 tank Distance: 200 feet Deviation: none appreciable VITALS: monitored by RT, supplemental O2 applied at 2L/min via nasal cannula to maintain SaO2 >87% THEREX: Access Code: [email or web address] URL: [email or web address]/ Date: 01/24/2023 Prepared by: Radha Conrad Exercises - Squat with Chair Touch - 1 x daily - 7 x weekly - 3 sets - 10 reps - Supine Bridge - 1 x daily - 7 x weekly - 3 sets - 10 reps - Straight Leg Raise with External Rotation - 1 x daily - 7 x weekly - 3 sets - 10 reps - Seated Alternating Side Stretch with Arm Overhead - 1 x daily - 7 x weekly - 3 sets - 10 reps - Beginner Sidelying Spinal Rotation - 1 x daily - 7 x weekly - 3 sets - 10 reps ASSESSMENT: Patient tolerates therapy well, would benefit from continued skilled therapy for energy conservation and O2 management PLAN: Continue global strengthening per plan of care until patient is medically cleared for discharge. TREATMENT CODE/TIME: 67594 Ther Ex 10 minutes beginning at 9:19. [id number] Gait 11 minutes beginning at 10:12
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
--- NOTE | 2023-01-24 15:50 | PDOC.CMDIS ---
Date of service: 01/24/23 Time of Service: 15:50 LACE Index Scoring Tool Questions: Length of Stay (in days): 3 Was the patient admitted via the E.D.?: Yes Comorbidities: Chronic Pulmonary Disease E.D. Visits: 2 Answers: Total Score: 10 Risk of Readmission: High Risk Care Management Discharge Plan Reason for Hospitalization: acute hypoxic respiratory failure, COPD Discharge Plan: Carolyn returned home today with new orders for HH RN, PT. She has new O2, which RT coordinated with Sarika. Her son drove her home via private vehicle. She will follow up with her PCP and discharge plan of care. She is happy to be going home. Patient/Family Education Needs: Review discharge instructions and limitations, discussion of self care needs including ask me three. Services Needed at Discharge: Home Health Care Services (HH RN, PT)
--- NOTE | 2023-01-24 16:27 | PDOC.HHF2F_ITS ---
Home Health Referral Home Health Orders Clinical synopsis of why skilled professionals are needed: This is an 82 year old female patient with past medical history of COPD and anxiety, a 50 pack year smoker (quit one year ago) who presented to the [facility] ED on 01/21/23 with complaint of acute onset of difficultly breathing. She used her nebulizer without much relief as well as her inhalers. She has been using a walker because of her dyspnea with exertion.? She has been unable to walk more than a few feet without having to rest. She has had covid in the past, but is not vaccinated.? She was covid negatvie here.? She had not other symptoms.? Vital signs were stable, however she required oxygen via nasal cannula to keep her oxygen saturations above 90.? She was admitted to the hospital with acute exacerbation of COPD for further testing and treatment. She was started on doxycycline and prednisone.? She did improve, however was unable to ambulate without becoming severely dyspneic with oxygen saturations falling to the low 80's and taking 15 min to get above 90 at rest.? She will need home oxygen - nasal cannula 2 LPM to wear when ambulating and PRN.? Referred to pulmonary.? She was given a prednisone taper and the rest of a 5 day course of doxycyccline. Discharged to home with home health nursing and PT.? Medical diagnosis necessitation home health referral: COPD Registered Nurse: Check all that apply Instruct on new or changed medication(s)/assess compliance: Ordered Assess for exacerbation of medical condition, instruct patient/caregivers on signs and symptoms to report for early detection: Ordered Other: Teach oxygen therapy Physical Therapist: Check all that apply Increase strength & endurance for safe mobility at home: Ordered To design/establish home maintenance program: Ordered Fall reduction therapy program for patient with history of frequent falls: Ordered Home safety evaluation and teaching/gait training including stair management (if applicable): Ordered Better Breathing Program: Ordered Occupational Therapist: Evaluate and treat for patient unable to perform ADL/IADL/self-care: Ordered Upper extremity strengthening, range and motion: Ordered Home Bound Status Requires the aid of supportive device (check all that apply): Walker Assistance of another person (Describe assistance and medical necessity): Requires the assistance of another person and a walker to ambulate outside Patient has a condition such that leaving home is medically contraindicated (Describe): Oxygen dependent when ambulating Describe why leaving home would require a considerable and taxing effort: Requires frequent rest periods and Oxygen Encounter Date and Reason: I certify that a FTF encounter for this patient was performed on January 24, 2023 and that such encounter was related to the primary reason the patient requires home health services. The encounter was conducted in the following manner: * By me as the certifying physician, ORAL SURGEON, PA or * By an inpatient physician, ORAL SURGEON or PA during an inpatient stay who communicated findings to me, Certification And Authentication I certify that I composed the above information based on my clinical judgment relating to this patient's medical condition and, if applicable, clinical findings communicated to me by the NPP or inpatient physician who performed the FTF encounter. Name of Provider that will be monitoring home health services: Severino Perez
--- NOTE | 2023-01-28 13:25 | PT.INDS ---
PT Notes Visit Reasons: Acute Hypoxic Respiratory Failure, COPD Physical Therapy Inpatient Discharge Summary Treatment Dates: 01/22/2023 - 01/24/23 Referring Doctor: Kwaku Spann MD PT Orders: PT CONSULT: Eval/treat Precautions: Fall. Standard. Activity as tolerated. This document serves as a summary of care. No PT services were provided on this date. Patient Profile/Admitting Diagnosis: Carolyn is an 82-year-old female admitted for management of acute respiratory failure with hypoxia, COPD exacerbation, and abnormal gait. She participated in 5 sessions of PT intervention, demonstrating improvements in safety and activity tolerance sufficient to allow for safe return to community with addition of HH PT for continued improvements in activity tolerance. Social History/Home Situation: Lives on the second floor of the [facility]. Modified independent with use of 4 wheeled walker. Has a trilogy machine. Did not have daytime oxygen supplementation prior to admission. Equipment Owned/DME: Trillogy machine, 4WW, FWW Subjective: none obtained Objective: ROM: Right Upper Extremity: Shoulder Flexion WFL. Shoulder abduction WFL. Elbow flexion WFL. Wrist flexion WFL. Functional opening and closing of hand WFL. Left Upper Extremity: Shoulder Flexion WFL. Shoulder abduction WFL. Elbow flexion WFL. Wrist flexion WFL. Functional opening and closing of hand WFL. Right Lower Extremity: Hip flexion WFL. Hip abduction WFL. Knee flexion WFL. Ankle dorsiflexion WFL. Ankle plantarflexion WFL. Left Lower Extremity: Hip flexion WFL. Hip abduction WFL. Knee flexion WFL. Ankle dorsiflexion WFL. Ankle plantarflexion WFL. Strength: Right Upper Extremity: Shoulder flexors 4-/5. Shoulder abductors 4/-5. Elbow flexors 4/5. Elbow extensors 4-/5. Accounts Receivable Manager strong. Left Upper Extremity: Shoulder flexors 4-/5. Shoulder abductors 4/-5. Elbow flexors 4/5. Elbow extensors 4-/5. Accounts Receivable Manager strong. Right Lower Extremity: Hip flexors 4-/5. Hip abductors 4-/5. Knee flexors 4-/5. Knee extensors 4-/5. Ankle dorsiflexors 4-/5. Ankle plantarflexors 4-/5. Left Lower Extremity: Hip flexors 4-/5. Hip abductors 4-/5. Knee flexors 4-/5. Knee extensors 4-/5. Ankle dorsiflexors 4-/5. Ankle plantarflexors 4-/5. BED MOBILITY/TRANSFERS ? Sit-stand: independent ? Stand-sit: independent ? Bed-Chair: independent ? Chair-bed: independent ? GAIT? Assistive Device: FWW? Weight bearing: full Assist: standby, assist with O2 tank ? Distance:? 200 feet? Deviation: none appreciable ? VITALS:? monitored by RT, supplemental O2 applied at 2L/min via nasal cannula to maintain SaO2 >87% ? ? Balance: Static Sitting: Normal Dynamic Sitting: Normal Static Standing: Fair Dynamic Standing: Fair Assessment: Patient admitted for management of COPD exacerbation, and referred to PT for consultation on 01/22/23, where she was found to have difficulty with walking, balance impairment, HR fluctuations with low intensity activities, and decreased ability of patient to thrive alone at home. She participated in 5 sessions of PT intervention, demonstrating improvements in safety and activity tolerance sufficient to allow for safe return to community with addition of PT for continued improvements in activity tolerance. Goals: Goals X1 week 1. Supine-Sit independent (met) 2. Sit-Supine independent(met) 3. Sit-Stand independent(met) 4. Stand-Sit independent with 4WW(met) 5. Bed-Chair independent with 4WW(met) 6. Chair-Bed independent with 4WW(met) 7. Independent gait on level surface with use of 4WW for at least 50 feet without report of pain nor dyspnea(met) 8. Independent with home exercise program (met) 9. Good static and dynamic standing balance/tolerance (progressing toward) Plan of Care/Treatment Plan: Was able to discharge home to [facility] 01/24/23. DISCHARGE RECOMMENDATIONS: [] Home with no services [] [X] Home with services. Patient will benefit from home health PT services in order to progress mobility level using least restrictive assistive ambulatory device, assess home safety, identify additional equipment needs, and establish a functional maintenance program that will increase ability of patient to remain at home. [] Home with outpatient PT [] [] SNF for continued rehabilitation [] [] Bioinformatics Software Engineer Care [] [] SNF versus LTC based on ability to participate and progress [] TREATMENT CODE/TIME: none Thank you for the opportunity to participate in the care of this patient. Shelli Herrera, PT, DPT [facility], [place]
== END 2023-01-24 15:48 | disposition home health service (06) | DRG 190 ==
LOC: ER 21:31 → MS 22:20
PROVIDERS: Hospitalist; Admitting Provider Internal Medicine; Emergency Provider Student in an Organized Health Care Education/Training Program; PCP Nurse Practitioner Family; Visit Provider Internal Medicine
DX: J44.1 Chronic obstructive pulmonary disease with (acute) exacerbation (principal); J96.01 Acute respiratory failure with hypoxia; J44.0 Chronic obstructive pulmonary disease with (acute) lower respiratory infection; R26.9 Unspecified abnormalities of gait and mobility; F41.9 Anxiety disorder, unspecified; J20.9 Acute bronchitis, unspecified; G89.4 Chronic pain syndrome; Z87.891 Personal history of nicotine dependence; K44.9 Diaphragmatic hernia without obstruction or gangrene; E78.5 Hyperlipidemia, unspecified
CPT/HCPCS: 36415; 80048; 80053; 84145; 87637; 93005; 94618; 97110; 97116; 97165; 97530; 99285; J1650; 71046; 83735; 83880; 84484; 85025; 85379; 86140; 93010; 94640; 94667; 94668; 94760; 99223; 99232; 99239; J1100; J7512; J7613; J7620; J7626

== ENCOUNTER → 2023-05-10 11:25 | Outpatient (CLI) | payer MEDICARE, SELFPAY ==
[2023-05-10 14:45] LABS: Abs Immature Grans 0.02 10^3/uL (0.0-0.06); Absolute Basophil Count 0.03 10^3/uL (0.0-0.2); Absolute Eosinophil Count 0.09 10^3/uL (0.0-0.7); Absolute Lymphocyte Count 1.75 10^3/uL (1.2-3.4); Absolute Monocyte Count 0.31 10^3/uL (0.1-0.8); Absolute Neutrophil Count 3.46 10^3/uL (1.2-6.7); Basophils % 0.5; Eosinophils % 1.6; HGB 15.7 g/dL (11.2-15.7); Immature Grans % 0.4; Lymphocytes % 30.9; MCH 31.3 pg (27.0-33.0); MCHC 33.4 % (32.0-36.0); MCV 94 fL (80-95); MPV 9.2 fL (8.0-11.0); Monocytes % 5.5; Neutrophils % 61.1; Platelet Count 273 10^3/uL (130-400); RBC 5.02 10^6/uL (3.93-5.22); RDW-SD 44.8 fL; WBC 5.66 10^3/uL (4.4-10.8)
[2023-05-10 14:47] LABS: Bilirubin Negative (Negative); Blood Negative (Negative); Clarity Clear (Clear); Glucose Negative (Negative); Ketones Negative (Negative); Leukocyte Esterase Small (Negative); Nitrite Positive (Negative); Urobilinogen 0.2 mg/dL (Up to 0.2)
[2023-05-10 14:56] LABS: Bacteria Many HPF (Negative); Epithelial Cells Few HPF (Negative); RBC 0-2 HPF (0-2)
[2023-05-10] MEDS: Omnipaque 350 MG/ML 50 ML BTL PO (14:56)
[2023-05-10 14:57] LABS: C & S Indicated? Yes; Casts Negative LPF (Negative); Crystals Negative HPF (Negative); Mucus Negative (Negative)
[2023-05-10 15:00] LABS: ALT 16 U/L (14-59); AST 16 U/L (15-37); Albumin 3.5 g/dL (3.4-5.0); Alkaline Phosphatase 73 U/L (46-116); Anion Gap 8.5 mmol/L (3-11); BUN 6 mg/dL (7-18); CO2 27.5 mmol/L (21.0-32.0); CREATININE 0.6 mg/dL (0.55-1.02); Calcium 9.2 mg/dL (8.5-10.1); Chloride 104 mmol/L (98-107); Estimated GFR 90.68 (mL/min/1.73m2); Glucose 87 mg/dL (74-106); Sodium 140 mmol/L (136-145); Total Protein 6.9 g/dL (6.4-8.2)
--- NOTE | 2023-05-10 16:20 | DI.CT_ITS ---
Exam(s) CT ABDOMEN PELVIS W EXAM: CT ABDOMEN PELVIS W CLINICAL HISTORY: RLQ abd pain RLQ PAIN R10.31. TECHNIQUE: Imaging Protocol: Axial computed tomography images with coronal and sagittal reformatted images were created and reviewed CONTRAST MATERIAL: Intravenous: Omnipaque-350 100cc Oral: Yes. Oral contrast was also administered for bowel opacification COMPARISON: CT CT CHEST PE ABD PELVIS W from 09/28/2022 FINDINGS: VISUALIZED LUNG BASES: Increased markings in right lung base appear unchanged from 09/28/2022. There are no pleural effusions.. ABDOMEN: There is no ascites. GI: There is a moderate size hiatal hernia again noted. Stomach is not distended. No evidence of sm all-bowel obstruction. There diverticuli throughout the colon without evidence of acute diverticulit is. Prominent duodenal diverticulum noted overlying the pancreatic head. There is evidence of proba ble prior partial right hemicolectomy. The actual anastomosis is difficult to delineate but there is no bowel obstruction, free air, nor abscess. There is extensive diverticulosis throughout the colon without evidence of acute diverticulitis. LIVER: There are no focal hepatic lesions evident. Mildly prominent intrahepatic ducts. GALLBLADDER/BILIARY: Gallbladder surgically absent. CBD diameter slightly prominent commensurate wit h patient's advanced age and post cholecystectomy status. PANCREAS: No evidence of pancreatic mass nor dilatation of the pancreatic duct. SPLEEN: Spleen is not enlarged. No obvious intrasplenic lesions. Splenic and portal veins are paten t. ADRENALS: There are no significant adrenal masses. KIDNEYS:There is a benign cyst in the inferior pole of the right kidney measuring 1.7 x 1.6 cm. Does not require further workup. A large cystic structure benign appearance noted again medial to the ri ght kidney measuring 8.5 cm craniocaudal by 4 cm wide by 5.5 cm AP. Is difficult to determine if thi s is a large parapelvic cyst or prominent extrarenal pelvis.. ABDOMINAL AORTA: Calcified but not significant enlarged. LYMPH NODES:There is no retroperitoneal nor paraaortic adenopathy. ABDOMINAL WALL: No evidence of significant anterior abdominal wall nor inguinal hernia. GI: There is no evidence of bowel obstruction, free air, nor abscess. PELVIS: GI: No evidence of appendicitis.Extensive sigmoid diverticulosis. No obvious acute diverticulitis. LYMPH NODES: There is no intrapelvic nor inguinal adenopathy. REPRODUCTIVE: Large calcified uterine fibroids noted. The largest measures 5 x 4 cm. URINARY BLADDER: No calculi nor obvious masses evident OSSEOUS: Left hip prosthesis again noted. No fractures. No significant osseous lesions. IMPRESSION: 1. Compared to the prior CT scan of 09/28/2022 there is again noted extensive diverticulosis of the e ntire colon without evidence of acute diverticulitis. There appears to have been probable prior part ial right hemicolectomy. There is no evidence of bowel obstruction, free air, abscess, nor ascites. 2. Large duodenal diverticulum again noted, unchanged. 3. Large calcified uterine fibroids again noted. 4. Left hip prosthesis again noted. No acute findings in the abdomen and pelvis RADIATION DOSE DELIVERED: Total DLP DATA REPOSITORY: All CT scans at this facility are submitted to the National Radiology Data Registry (NRDR) Dose Index Registry (DIR) with the [employer] (ACR). RADIATION OPTIMIZATION: All CT scans at this facility use at least one of these dose optimization te chniques: automated exposure control; mA and/or kV adjustment per patient size (includes targeted exa ms where dose is matched to clinical indication); or iterative reconstruction.
== END ==
PROVIDERS: PCP Nurse Practitioner Family; Visit Provider Family Medicine
DX: R10.31 Right lower quadrant pain (principal); K44.9 Diaphragmatic hernia without obstruction or gangrene; K57.30 Diverticulosis of large intestine without perforation or abscess without bleeding; K57.31 Diverticulosis of large intestine without perforation or abscess with bleeding; N28.1 Cyst of kidney, acquired; D50.9 Iron deficiency anemia, unspecified; R30.0 Dysuria; R82.998 Other abnormal findings in urine; Z90.49 Acquired absence of other specified parts of digestive tract; Z96.642 Presence of left artificial hip joint
CPT/HCPCS: 80053; 87077; 74177; 81003; 81015; 85025; 87086; 87186; Q9967

== ENCOUNTER 2024-03-22 13:43 | Inpatient (IN) | payer MEDICARE, SELFPAY ==
[2024-03-22] VITALS (17 sets, daily range): BP systolic 103–146; BP diastolic 50–88; PULSE 55–116; RESP 2–24; TEMP 36.2–36.7; O2SAT 84–98
--- NOTE | 2024-03-22 13:30 | RT.EKG_ITS ---
APPROVED REPORT Exam: Resting ECG Reason for Exam: dyspnea Patient Location: E HR:89 bpm ECG Measurements Heart Rate 89 AXIS WA 131 P -41 QRSd 96 QRS 84 QT 372 T 79 QTc 452 Conclusion Sinus rhythm...normal P axis, V-rate 60- 99 Nonspecific T abnrm, anterolateral leads...T <-0.10mV, I aVL V2-V6
--- NOTE | 2024-03-22 14:00 | DI.CT_ITS ---
Exam(s) CT CHEST PE CTA EXAM: CT CHEST PE CTA CLINICAL HISTORY: dyspnea, hypoxia. TECHNIQUE: Imaging Protocol: Axial CT angiography was performed with multi-slice acquisition and mu lti-planar and/or 3D reconstructions. CONTRAST MATERIAL: Intravenous: Omnipaque 350 contrast volume:100 mL COMPARISON: CT CT CHEST PE ABD PELVIS W from 09/28/[address] ABDOMEN PELVIS W from 05/10/2023 FINDINGS: Tracheobronchial tree: Patent where visualized. No bronchiectasis. Pulmonary parenchyma: Centrilobular emphysematous changes are present. There is stable scarring in t he right middle and right lower lobes. There is an area of atelectasis or scarring in the left lower lobe medially. Pulmonary Arteries: No evidence of filling defect to suggest pulmonary emboli. Mediastinum and Zuly: No dominant adenopathy or fluid collection. The esophagus is unremarkable. Th ere is a moderate hiatal hernia. Visualized thyroid gland: Unremarkable. Pleura: No effusion or pneumothorax. Heart: The heart is not dilated. Coronary artery calcifications are present. No pericardial effusion . Aorta: Thoracic aorta non-dilated. Due to the timing of the bolus, the thoracic aorta is inadequately opacified. Atherosclerotic calcification is present. Upper abdomen: There is a large duodenal diverticulum again seen. There is again seen a large right parapelvic cyst. Soft tissues: Unremarkable. Bones: Within normal limits for the patient's age. IMPRESSION: 1. No evidence of a pulmonary embolism or thoracic aortic aneurysm. 2. Centrilobular emphysema. 3. Stable scarring in the right middle and right lower lobes. 4. Small area of scarring or atelectasis in the left lower lobe. RADIATION DOSE DELIVERED: 90.03mGy.cm Total DLP DATA REPOSITORY: All CT scans at this facility are submitted to the National Radiology Data Registry (NRDR) Dose Index Registry (DIR) with the [employer] (ACR). RADIATION OPTIMIZATION: All CT scans at this facility use at least one of these dose optimization te chniques: automated exposure control; mA and/or kV adjustment per patient size (includes targeted exa ms where dose is matched to clinical indication); or iterative reconstruction.
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
[2024-03-22 14:09] LABS: BE (Venous) 4 mmol/L (-2-3); HCO3 (Venous) 29 mmol/L (23-28); O2 Sat (Venous) 70 %; TCO2 (Venous) 25 mmol/L (24-29); pCO2 (Venous) 45 mmHg (41-51); pH (Venous) 7.41 (7.31-7.41); pO2 (Venous) 36 mmHg
[2024-03-22 14:11] LABS: Abs Immature Grans 0.01 10^3/uL (0.0-0.06); Absolute Basophil Count 0.01 10^3/uL (0.0-0.2); Absolute Eosinophil Count 0.05 10^3/uL (0.0-0.7); Absolute Lymphocyte Count 1.29 10^3/uL (1.2-3.4); Absolute Monocyte Count 0.35 10^3/uL (0.1-0.8); Absolute Neutrophil Count 4.06 10^3/uL (1.2-6.7); Basophils % 0.2 %; Eosinophils % 0.9 %; HCT 46.6 % (36.0-46.0); HGB 15.5 g/dL (11.2-15.7); Immature Grans % 0.2 %; Lymphocytes % 22.4 %; MCH 31.6 pg (27.0-33.0); MCHC 33.3 % (32.0-36.0); MCV 95 fL (80-95); MPV 9.4 fL (8.0-11.0); Monocytes % 6.1 %; Neutrophils % 70.2 %; Platelet Count 208 10^3/uL (130-400); RBC 4.91 10^6/uL (3.93-5.22); RDW 13.2 % (11.7-14.6); RDW-SD 46.5 fL; WBC 5.77 10^3/uL (4.4-10.8)
[2024-03-22] MEDS: Albuterol/Ipratropium 3 ML UPD VIAL UPD ×3 (14:23→20:05)
[2024-03-22] MEDS: methylPREDNISolone SUCC 125 MG VIAL IVP (14:23)
[2024-03-22 14:38] LABS: ALT 16 U/L (14-59); AST 15 U/L (15-37); Alkaline Phosphatase 71 U/L (46-116); Anion Gap 8.3 mmol/L (3-11); BUN 11 mg/dL (7-18); Bilirubin, Total 1.13 mg/dL (0.2-1.0); CO2 28.7 mmol/L (21.0-32.0); CREATININE 0.7 mg/dL (0.55-1.02); Calcium 8.8 mg/dL (8.5-10.1); Chloride 104 mmol/L (98-107); Estimated GFR 86.83 (mL/min/1.73m2); Glucose 69 mg/dL (74-106); Magnesium 1.9 mg/dL (1.8-2.4); NT-proBNP 136 pg/mL (<300); Sodium 141 mmol/L (136-145); TSH (W/Ref FT4) 1.21 uIU/mL (0.36-3.74); Total Protein 6.2 g/dL (6.4-8.2); Troponin I 4 ng/L (<or=51)
[2024-03-22 14:50] LABS: Procalcitonin < 0.1 ng/mL
[2024-03-22 14:51] LABS: COVID-19 PCR Negative (Negative); Influenza A PCR Negative (Negative); Influenza B PCR Negative (Negative); RSV PCR Negative (Negative)
[2024-03-22 14:52] LABS: Source Nasopharynx
[2024-03-22] MEDS: Omnipaque 350 MG/ML 100 ML BTL IJ (15:00)
[2024-03-22 15:56] LABS: Troponin I 5 ng/L (<or=51)
[2024-03-22] MEDS: cefTRIAXone 2 GM/50 ML BAG IVPB (16:28)
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
--- NOTE | 2024-03-22 16:44 | W.PC.ACHO ---
Registration Status: Primary Language: Preferred Language: ED Information & Data Chief Complaint SOB 03/22/24 14:07 Triage Note symptoms started 03/22/24 13:44 decreased energy, feels SOB, Medical / Surgical History (Last Updated 02/12/24 @ 08:47 by Severino Perez NP) Respiratory failure with hypoxia Abnormal gait Acquired cyst of kidney (05/23/05) Alcohol abuse Closed fracture of two ribs (12/01/09) Diverticulitis of colon (05/23/89) Electroencephalogram abnormality (05/23/07) Hepatitis A virus infection Pneumococcal pneumonia (05/23/98) Viral meningitis (12/21/05) Subacromial bursitis of left shoulder joint (04/24/17) (Last Updated 05/10/23 @ 13:16 by Kristie Diaz MD) History of bilateral ligation of fallopian tubes History of colectomy (1988) Status post appendectomy Status post cholecystectomy Status post hip replacement Most Recent Vital Signs Temperature 36.7 C 03/22/24 13:44 Temperature Source Oral 03/22/24 13:44 Pulse 92 H 03/22/24 15:31 Pulse 95 H 03/22/24 15:31 Respiratory Rate 22 03/22/24 16:02 Respiratory Effort Short of Breath 03/22/24 16:02 Respiratory Depth Normal 03/22/24 16:02 Respiratory Pattern Normal 03/22/24 16:02 Blood Pressure 131/58 L 03/22/24 15:31 Blood Pressure Mean 80 03/22/24 15:31 Pulse Oximetry 91 L 03/22/24 15:31 Oxygen Delivery Method Nasal Cannula 03/22/24 15:17 Oxygen Flow Rate 2 03/22/24 15:17 Allergies nabumetone (From Relafen) Adverse Reaction (Intermediate, Verified 03/22/24 13:52) GI UPSET Active Medications Generic Name Dose Route Start Last Admin Trade Name Freq PRN Reason Stop Dose Admin Iohexol 100 ml 03/22/24 15:00 03/22/24 15:00 Omnipaque 350 Mg/Ml 100 Ml Btl IJ 04/21/24 23:59 100 ml DIRECTED ERUM Administration IV IV Catheter Type [Right Saline Lock Antecubital] IV Catheter Gauge [Right 20 Antecubital] Diet Orders Category Date Time Status Regular/Normal [DIET] Nutrition 03/22/24 Dinner Active Diagnostics 03/22/24 03/22/24 03/22/24 Range/Units 16:41 15:30 14:04 WBC 5.77 (4.4-10.8) 10^3/uL RBC 4.91 (3.93-5.22) 10^6/uL Hgb 15.5 (11.2-15.7) g/dL Hct 46.6 H (36.0-46.0) % MCV 95 (80-95) fL MCH 31.6 (27.0-33.0) pg MCHC 33.3 (32.0-36.0) % RDW 13.2 (11.7-14.6) % Plt Count 208 (130-400) 10^3/uL MPV 9.4 (8.0-11.0) fL Immature Gran % 0.2 % Neutrophils % 70.2 % Lymphocytes % 22.4 % Monocytes % 6.1 % Eosinophils % 0.9 % Basophils % 0.2 % Nucleated RBC % 0.0 (0.0-0.3) % Absolute Neutrophils 4.06 (1.2-6.7) 10^3/uL Absolute Lymphocytes 1.29 (1.2-3.4) 10^3/uL Absolute Monocytes 0.35 (0.1-0.8) 10^3/uL Absolute Eosinophils 0.05 (0.0-0.7) 10^3/uL Absolute Basophils 0.01 (0.0-0.2) 10^3/uL VBG pH 7.41 (7.31-7.41) VBG pCO2 45 (41-51) mmHg VBG pO2 36 mmHg VBG HCO3 29 H (23-28) mmol/L VBG Total CO2 25 (24-29) mmol/L VBG O2 Saturation 70 % VBG Base Excess 4 H (-2-3) mmol/L Sodium 141 (136-145) mmol/L Potassium 4.0 (3.5-5.1) mmol/L Chloride 104 (98-107) mmol/L Carbon Dioxide 28.7 (21.0-32.0) mmol/L Anion Gap 8.3 (3-11) mmol/L BUN 11 (7-18) mg/dL Creatinine 0.7 (0.55-1.02) mg/dL Est GFR (CKD-EPI 2020) 86.83 (mL/min/1.73m2) Glucose 69 L (74-106) mg/dL Calcium 8.8 (8.5-10.1) mg/dL Magnesium 1.9 (1.8-2.4) mg/dL Total Bilirubin 1.13 H (0.2-1.0) mg/dL AST 15 (15-37) U/L ALT 16 (14-59) U/L Alkaline Phosphatase 71 (46-116) U/L Troponin I Pending 5 4 (<or=51) ng/L NT-Pro-B Natriuret Pep 136 (<300) pg/mL Total Protein 6.2 L (6.4-8.2) g/dL Albumin 3.0 L (3.4-5.0) g/dL Procalcitonin < 0.1 ng/mL TSH 1.21 (0.36-3.74) uIU/mL COVID-19 Source SARS-CoV-2 (PCR) Influenza Type A (PCR) Influenza Type B (PCR) RSV (PCR) 03/22/24 03/22/24 Range/Units 14:03 13:52 WBC (4.4-10.8) 10^3/uL RBC (3.93-5.22) 10^6/uL Hgb (11.2-15.7) g/dL Hct (36.0-46.0) % MCV (80-95) fL MCH (27.0-33.0) pg MCHC (32.0-36.0) % RDW (11.7-14.6) % Plt Count (130-400) 10^3/uL MPV (8.0-11.0) fL Immature Gran % % Neutrophils % % Lymphocytes % % Monocytes % % Eosinophils % % Basophils % % Nucleated RBC % (0.0-0.3) % Absolute Neutrophils (1.2-6.7) 10^3/uL Absolute Lymphocytes (1.2-3.4) 10^3/uL Absolute Monocytes (0.1-0.8) 10^3/uL Absolute Eosinophils (0.0-0.7) 10^3/uL Absolute Basophils (0.0-0.2) 10^3/uL VBG pH (7.31-7.41) VBG pCO2 (41-51) mmHg VBG pO2 mmHg VBG HCO3 (23-28) mmol/L VBG Total CO2 (24-29) mmol/L VBG O2 Saturation % VBG Base Excess (-2-3) mmol/L Sodium (136-145) mmol/L Potassium (3.5-5.1) mmol/L Chloride (98-107) mmol/L Carbon Dioxide (21.0-32.0) mmol/L Anion Gap (3-11) mmol/L BUN (7-18) mg/dL Creatinine (0.55-1.02) mg/dL Est GFR (CKD-EPI 2020) (mL/min/1.73m2) Glucose (74-106) mg/dL Calcium (8.5-10.1) mg/dL Magnesium (1.8-2.4) mg/dL Total Bilirubin (0.2-1.0) mg/dL AST (15-37) U/L ALT (14-59) U/L Alkaline Phosphatase (46-116) U/L Troponin I (<or=51) ng/L NT-Pro-B Natriuret Pep (<300) pg/mL Total Protein (6.4-8.2) g/dL Albumin (3.4-5.0) g/dL Procalcitonin ng/mL TSH (0.36-3.74) uIU/mL COVID-19 Source Nasopharynx Cancelled SARS-CoV-2 (PCR) Negative Cancelled Influenza Type A (PCR) Negative Cancelled Influenza Type B (PCR) Negative Cancelled RSV (PCR) Negative Cancelled 03/22/24 15:47 Blood Culture - Pending Blood 03/22/24 14:20 Blood Culture - Pending Blood Intake and Output - 24 Hour Total 03/22/24 13:34 thru 03/22/24 14:00 Intake Total 10 Balance 10 Weight 77 kg Intake: IV 10 Falls Risk Assessment History of Falls No History 03/22/24 16:02 Contributing Factors No Factors,Unstable, 03/22/24 16:02 Impairments Ambulatory Aids Uses ambulatory device + 03/22/24 16:02 Tubes/Lines With any additional score 03/22/24 16:02 Gait Evaluation W/any additional score 03/22/24 16:02 Cognition No cognitive impairment 03/22/24 16:02 Fall Total Score 76 09/29/24 16:02 Level of Risk Maximum Risk 03/22/24 16:02 v v v v v v v v v Sending and/or Receiving Nurses: Please use comment section below to note any information pertinent to the patient hand-off not included above. Information / Comments: Pt alert and oriented times 3 now on RA from [facility]. VSS, Pt coming up to room 207. Report received from: Kianna Garcia RN
[2024-03-22] MEDS: Acetaminophen 500 MG TAB 1000 MG PO (16:45)
[2024-03-22] MEDS: DOXYCYCLINE 100 MG in Normal Saline 100 ML IVPB (17:27)
[2024-03-22] MEDS: Enoxaparin 40 MG/0.4 ML SYR SC (17:27)
[2024-03-22 18:35] LABS: Troponin I 4 ng/L (<or=51)
--- NOTE | 2024-03-22 20:10 | RESPIRATORY ---
Pt. stated that she uses 2LPM of O2 as needed. DME is [employer].
[2024-03-22] MEDS: methylPREDNISolone SUCC 125 MG VIAL 80 MG IVP (21:23)
[2024-03-22] MEDS: Normal Saline Flush 10 ML SYR IVP (21:39)
[2024-03-23] VITALS (18 sets, daily range): BP systolic 104–121; BP diastolic 47–67; PULSE 87–117; RESP 2–91; TEMP 36.4–37.3; O2SAT 90–97
[2024-03-23] MEDS: Albuterol/Ipratropium 3 ML UPD VIAL UPD ×4 (02:01→21:04)
[2024-03-23] MEDS: Acetaminophen 500 MG TAB 1000 MG PO (02:57)
[2024-03-23] MEDS: methylPREDNISolone SUCC 125 MG VIAL 80 MG IVP ×3 (05:24→22:30)
[2024-03-23] MEDS: DOXYCYCLINE 100 MG in Normal Saline 100 ML IVPB ×2 (05:24→18:01)
[2024-03-23 06:38] LABS: Abs Immature Grans 0.02 10^3/uL (0.0-0.06); Absolute Basophil Count 0.01 10^3/uL (0.0-0.2); Absolute Lymphocyte Count 0.72 10^3/uL (1.2-3.4); Absolute Monocyte Count 0.02 10^3/uL (0.1-0.8); Absolute Neutrophil Count 5.63 10^3/uL (1.2-6.7); Basophils % 0.2 %; HCT 44.3 % (36.0-46.0); HGB 15.2 g/dL (11.2-15.7); Immature Grans % 0.3 %; Lymphocytes % 11.3 %; MCH 31.9 pg (27.0-33.0); MCHC 34.3 % (32.0-36.0); MCV 93 fL (80-95); MPV 9.9 fL (8.0-11.0); Monocytes % 0.3 %; Neutrophils % 87.9 %; Platelet Count 227 10^3/uL (130-400); RBC 4.77 10^6/uL (3.93-5.22); RDW 13.1 % (11.7-14.6); RDW-SD 44.8 fL
[2024-03-23 06:49] LABS: Anion Gap 8.2 mmol/L (3-11); BUN 11 mg/dL (7-18); CO2 26.8 mmol/L (21.0-32.0); CREATININE 0.7 mg/dL (0.55-1.02); Chloride 102 mmol/L (98-107); Estimated GFR 86.83 (mL/min/1.73m2); Glucose 183 mg/dL (74-106); Sodium 137 mmol/L (136-145)
[2024-03-23 06:50] LABS: Magnesium 1.8 mg/dL (1.8-2.4)
[2024-03-23] MEDS: Tiotropium Bromide-Respimat 10 PUFF INH IH (08:45)
[2024-03-23] MEDS: Budesonide/Formoterol 80/4.5 6.9 GM 60 PUFF INH IH ×2 (08:45→20:16)
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
[2024-03-23] MEDS: Normal Saline Flush 10 ML SYR IVP ×3 (09:15→20:20)
--- NOTE | 2024-03-23 09:47 | NUR.NOTE ---
Nursing Note: Pt voiced concerns about discharge planning- referral to Care Management initiated
--- NOTE | 2024-03-23 12:11 | W.PM.PROGNOT ---
Date of Service Date of service: 03/23/24 Time of Service: 12:11 Assessment and Plan Assessment and plan (1) COPD exacerbation: Status: Acute Assessment and plan: Continue steroids. Continue scheduled + prn nebs, Continue doxy Encourage pulmonary toilet. Resp therapy consult O2 PRN - currently on 2 LPM NC with SPO2 > 88% - has home O2 prn; states she doesn't use it much but has in the past (Sarika) Patient reports she takes trelegy in the morning, followed by albuterol 45 minutes to an hour later, and then another dose of trelegy. (2) Acute respiratory failure with hypoxia: Status: Acute Assessment and plan: Due to above As above (3) Acute bronchitis: Status: Acute Assessment and plan: As above (4) DVT prophylaxis: Status: Acute Assessment and plan: SC enoxaparin (5) Discharge planning issues: Status: Acute Assessment and plan: Full code Discussed w Dr Toscano Subjective Subjective Patient reports: no new complaints, feels better, tolerating liquids well, tolerating a regular diet, shortness of breath (although less than yesterday) and afebrile; denies flatus, diarrhea or vomiting Interval history since last seen: Awake, alert, conversant. Asking to speak with managed care manager's regarding discharge. Exam Const General: no acute distress Orientation: alert HENMD Head: normal to inspection Ears: external ears normal General nose exam: external nose normal Mouth: moist mucous membranes Eyes General: appearance normal, both eyes and all related structures Neck Neck: normal visual inspection Resp Auscultation: wheezes (exp bilat) Cardio Jugular venous pressure: no JVD Rate: regular rate Heart Sounds: no murmurs Skin General skin exam: no rashes or lesions noted Neuro General: patient alert and patient oriented x3 Extrem General: normal to inspection Psych Mental Status: mental status grossly normal Objective Last Vital Signs Temp 36.8 C 03/23/24 11:12 Pulse 105 H 03/23/24 11:12 Resp 18 03/23/24 11:12 BP 118/60 03/23/24 11:12 Pulse Ox 92 03/23/24 11:12 Laboratory Results - last 24 hr 03/22/24 03/22/24 03/22/24 13:52 14:03 14:04 WBC 5.77 RBC 4.91 Hgb 15.5 Hct 46.6 H MCV 95 MCH 31.6 MCHC 33.3 RDW 13.2 Plt Count 208 MPV 9.4 Immature Gran % 0.2 Neutrophils % 70.2 Lymphocytes % 22.4 Monocytes % 6.1 Eosinophils % 0.9 Basophils % 0.2 Nucleated RBC % 0.0 Absolute Neutrophils 4.06 Absolute Lymphocytes 1.29 Absolute Monocytes 0.35 Absolute Eosinophils 0.05 Absolute Basophils 0.01 VBG pH 7.41 VBG pCO2 45 VBG pO2 36 VBG HCO3 29 H VBG Total CO2 25 VBG O2 Saturation 70 VBG Base Excess 4 H Sodium 141 Potassium 4.0 Chloride 104 Carbon Dioxide 28.7 Anion Gap 8.3 BUN 11 Creatinine 0.7 Est GFR (CKD-EPI 2020) 86.83 Glucose 69 L Calcium 8.8 Magnesium 1.9 Total Bilirubin 1.13 H AST 15 ALT 16 Alkaline Phosphatase 71 Troponin I 4 NT-Pro-B Natriuret Pep 136 Total Protein 6.2 L Albumin 3.0 L Procalcitonin < 0.1 TSH 1.21 COVID-19 Source Cancelled Nasopharynx SARS-CoV-2 (PCR) Cancelled Negative Influenza Type A (PCR) Cancelled Negative Influenza Type B (PCR) Cancelled Negative RSV (PCR) Cancelled Negative 03/22/24 03/22/24 03/23/24 15:30 18:00 06:20 WBC 6.40 RBC 4.77 Hgb 15.2 Hct 44.3 MCV 93 MCH 31.9 MCHC 34.3 RDW 13.1 Plt Count 227 MPV 9.9 Immature Gran % 0.3 Neutrophils % 87.9 Lymphocytes % 11.3 Monocytes % 0.3 Eosinophils % 0.0 Basophils % 0.2 Nucleated RBC % 0.0 Absolute Neutrophils 5.63 Absolute Lymphocytes 0.72 L Absolute Monocytes 0.02 L Absolute Eosinophils 0.00 Absolute Basophils 0.01 VBG pH VBG pCO2 VBG pO2 VBG HCO3 VBG Total CO2 VBG O2 Saturation VBG Base Excess Sodium 137 Potassium 4.0 Chloride 102 Carbon Dioxide 26.8 Anion Gap 8.2 BUN 11 Creatinine 0.7 Est GFR (CKD-EPI 2020) 86.83 Glucose 183 H Calcium 9.0 Magnesium 1.8 Total Bilirubin AST ALT Alkaline Phosphatase Troponin I 5 4 NT-Pro-B Natriuret Pep Total Protein Albumin Procalcitonin TSH COVID-19 Source SARS-CoV-2 (PCR) Influenza Type A (PCR) Influenza Type B (PCR) RSV (PCR) Time Spent with Patient Time Spent with Patient: 35-49 minutes Time was spent: preparing to see the patient(eg.review tests), ordering medications,tests, procedures, referring, communicating with other health residential caregiver, indepentently interpreting results, counseling the patient and care coordination
[2024-03-23] MEDS: Calcium Carbonate *TUMS* 500 MG CHEW 1000 MG PO ×2 (13:11→20:21)
[2024-03-23] MEDS: hydrOXYzine HCL 25 MG TAB PO ×2 (13:11→20:21)
--- NOTE | 2024-03-23 14:54 | NUR.NOTE ---
Nursing Note: Pt is c/o continuing heartburn. She took some Tums, but it doesn't last long enough, she states. Provider ordered Mylanta PRN, will give before meals to see if it helps.
[2024-03-23] MEDS: Enoxaparin 40 MG/0.4 ML SYR SC (18:00)
[2024-03-23] MEDS: Mylanta Suspension 30 ML CUP PO (20:19)
[2024-03-24] VITALS (7 sets, daily range): BP systolic 110–115; BP diastolic 56–68; PULSE 92–107; RESP 5–18; TEMP 36.6–37.2; O2SAT 90–95
[2024-03-24] MEDS: Albuterol/Ipratropium 3 ML UPD VIAL UPD ×2 (02:12→07:47)
[2024-03-24] MEDS: methylPREDNISolone SUCC 125 MG VIAL 80 MG IVP (06:16)
[2024-03-24] MEDS: DOXYCYCLINE 100 MG in Normal Saline 100 ML IVPB (06:16)
[2024-03-24] MEDS: Normal Saline Flush 10 ML SYR IVP ×2 (06:18→08:48)
[2024-03-24 06:50] LABS: Abs Immature Grans 0.09 10^3/uL (0.0-0.06); Absolute Monocyte Count 0.14 10^3/uL (0.1-0.8); HCT 47.8 % (36.0-46.0); HGB 15.9 g/dL (11.2-15.7); Immature Grans % 0.8 %; Lymphocytes % 5.1 %; MCH 31.9 pg (27.0-33.0); MCHC 33.3 % (32.0-36.0); MCV 96 fL (80-95); MPV 9.9 fL (8.0-11.0); Monocytes % 1.2 %; Neutrophils % 92.9 %; Platelet Count 223 10^3/uL (130-400); RBC 4.98 10^6/uL (3.93-5.22); RDW 13.2 % (11.7-14.6); RDW-SD 46.7 fL; WBC 11.68 10^3/uL (4.4-10.8)
[2024-03-24 06:54] LABS: Absolute Neutrophil Count 10.85 10^3/uL (1.2-6.7)
[2024-03-24 07:08] LABS: Anion Gap 10.1 mmol/L (3-11); BUN 15 mg/dL (7-18); CO2 27.9 mmol/L (21.0-32.0); CREATININE 0.8 mg/dL (0.55-1.02); Calcium 9.5 mg/dL (8.5-10.1); Chloride 105 mmol/L (98-107); Estimated GFR 73.98 (mL/min/1.73m2); Glucose 183 mg/dL (74-106); Magnesium 2.3 mg/dL (1.8-2.4); Potassium 4.1 mmol/L (3.5-5.1); Sodium 143 mmol/L (136-145)
[2024-03-24] MEDS: Budesonide/Formoterol 80/4.5 6.9 GM 60 PUFF INH IH (07:46)
[2024-03-24] MEDS: Tiotropium Bromide-Respimat 10 PUFF INH IH (07:46)
--- NOTE | 2024-03-24 07:53 | RESPIRATORY ---
Pt states that she uses Trelegy inhaler at home. Has home O2 to use as needed - maybe once a week when feeling like it. [facility] PT has a nebulizer machine at home and states that she has not used it in a long time.
[2024-03-24] MEDS: hydrOXYzine HCL 25 MG TAB PO (08:48)
--- NOTE | 2024-03-24 08:56 | PDOC.CMPRO ---
Date of service: 03/24/24 Time of Service: 08:56 Care Management Progress Note Discharge Potential Discharge Needs: PCP F/U Appt Anticipated Barriers to Discharge: None Identified Patient/Family Education Needs: Review discharge instructions, discuss Ask Me Three Transportation: Private vehicle Plan: Anticipate Carolyn will be discharged home with new home health services for RN, PT,OT, FEEDER CATCHER TOBACCO and nurse aides for bathing, dressing and meal preparation. She will follow up with her PCP and plan of care and transport via private vehicle or RCT. CM will follow and continue to assess for discharge planning needs. SDOH(Care Management) Screening Will the Patient Participate in the Screening?: Yes Do you worry about having a steady place to live?: no In the past 12 months, have you had to go without electric, gas, oil or water in your home?: no Have you or anyone in your house had to go without enough food to eat?: no Has lack of transportation kept you from medical appointments or from doing things needed for daily living?: no Has anyone in your support network made you feel unsafe for any reason?: no
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
--- NOTE | 2024-03-24 09:22 | CMDISCH_ITS ---
Date of service: 03/24/24 Time of Service: 09:22 LACE Index Scoring Tool Questions: Length of Stay (in days): 2 Was the patient admitted via the E.D.?: Yes Comorbidities: Chronic Pulmonary Disease E.D. Visits: 0 Answers: Total Score: 7 Risk of Readmission: Low Risk Care Management Discharge Plan Reason for Hospitalization: COPD Exacerbation Discharge Plan: Carolyn will return home with a resumption of her caregiver support from [facility] moderate needs, and new orders for HH RN, PT, OT, SHELL CORE AND MOLDING SUPERVISOR, and COORDINATE MEASURING MACHINE OPERATOR. Her son drove her home via private vehicle. She will follow up with her PCP and discharge plan of care. She was happy to be going home. Patient/Family Education Needs: Review discharge instructions and limitations, discussion of self care needs including ask me three. Services Needed at Discharge: Home Health Care Services (HH RN, PT, OT, SHELL CORE AND MOLDING SUPERVISOR, COORDINATE MEASURING MACHINE OPERATOR) [facility] Health Related Social Needs: No Data to Display Referrals and interventions: lives at [facility] for 6 years
--- NOTE | 2024-03-24 11:42 | PDOC.HHF2F_ITS ---
Home Health Referral Home Health Orders Clinical synopsis of why skilled professionals are needed: An 83-year-old female with a history of COPD and anxiety presented to the emergency department with moderate shortness of breath lasting three days. She exhibited bilateral wheezing and low oxygen saturation, which improved with supplemental oxygen. Imaging ruled out pulmonary embolism and pneumonia, showing centrilobular emphysema and stable scarring. Treatment included ceftriaxone, doxycycline, Solumedrol, and DuoNebs, leading to improvement. Labs were largely unremarkable. She remained stable throughout her stay. She is a full code. She was weened off of oxygen and was stable on room air. She does have oxygen in her home available to her as needed. She is discharged with the remainder of a 7 day course of doxycycline and guaifenesin as needed for cough. She did exhibit and complain of anxiety while hospitalized which she reported she also has daily when not hospitalized. She was given hydroxyzine for anxiety; she verbalized good relief, She definitely appeared much calmer. Patient was referred to home health services for physical therapy, occupational therapy, nursing, and medical social work. She would also benefit from assistance with grooming, activities of daily living, and meal preparation. Patient is discharged to home, stable. Medical diagnosis necessitation home health referral: COPD; weakness. Registered Nurse: Check all that apply Instruct on new or changed medication(s)/assess compliance: Ordered Assess for exacerbation of medical condition, instruct patient/caregivers on signs and symptoms to report for early detection: Ordered Other: Teach oxygen therapy Physical Therapist: Check all that apply Increase strength & endurance for safe mobility at home: Ordered To design/establish home maintenance program: Ordered Fall reduction therapy program for patient with history of frequent falls: Ordered Home safety evaluation and teaching/gait training including stair management (if applicable): Ordered Better Breathing Program: Ordered Occupational Therapist: Evaluate and treat for patient unable to perform ADL/IADL/self-care: Ordered Upper extremity strengthening, range and motion: Ordered Other: Patient would benefit from home health aides for grooming, ADL's, assistance with Clinical Liaison: Assist with community resources: Ordered Assist with terminal press operator care planning: Ordered Home Bound Status Requires the aid of supportive device (check all that apply): Walker Patient has a condition such that leaving home is medically contraindicated (Describe): Oxygen dependent when ambulating Describe why leaving home would require a considerable and taxing effort: Requires frequent rest periods and Oxygen Encounter Date and Reason: I certify that a FTF encounter for this patient was performed on March 24, 2024 and that such encounter was related to the primary reason the patient requires home health services. The encounter was conducted in the following manner: * By me as the certifying physician, TRANSPLANT NURSE PRACTITIONER, PA or * By an inpatient physician, TRANSPLANT NURSE PRACTITIONER or PA during an inpatient stay who communicated findings to me, Certification And Authentication I certify that I composed the above information based on my clinical judgment relating to this patient's medical condition and, if applicable, clinical findings communicated to me by the NPP or inpatient physician who performed the FTF encounter. Name of Provider that will be monitoring home health services: Severino Perez
[2024-03-24 13:21] LABS: Lab Add On Test DONE
[2024-03-24 13:45] LABS: Hemoglobin A1C 5.3 % (<5.7)
== END 2024-03-24 11:15 | disposition home health service (06) | DRG 190 ==
LOC: ER 16:28 → MS 16:48
PROVIDERS: Nurse Practitioner Family; Admitting Provider Family Medicine; Emergency Provider Emergency Medicine; PCP Nurse Practitioner Family; Visit Provider Family Medicine
DX: J44.1 Chronic obstructive pulmonary disease with (acute) exacerbation (principal); J96.01 Acute respiratory failure with hypoxia; J44.0 Chronic obstructive pulmonary disease with (acute) lower respiratory infection; J20.9 Acute bronchitis, unspecified; F41.9 Anxiety disorder, unspecified; Z79.899 Other long term (current) drug therapy; F17.200 Nicotine dependence, unspecified, uncomplicated; K64.8 Other hemorrhoids; E78.5 Hyperlipidemia, unspecified; K44.9 Diaphragmatic hernia without obstruction or gangrene; G89.4 Chronic pain syndrome
CPT/HCPCS: 00123; 36415; 71275; 80048; 80053; 82805; 84145; 87040; 87637; 93005; 94640; 96365; 96375; 99285; J1650; 83036; 83735; 83880; 84443; 84484; 85025; 93010; 94664; 94760; 99222; 99232; 99239; J0696; J2919; J3490; J7620

== ENCOUNTER 2024-09-14 14:50 | Inpatient (IN) | payer MEDICARE, SELFPAY ==
[2024-09-14] VITALS (34 sets, daily range): BP systolic 98–129; BP diastolic 37–111; PULSE 66–120; RESP 5–30; TEMP 36.1–36.9; O2SAT 82–98
--- NOTE | 2024-09-14 14:45 | RT.EKG_ITS ---
APPROVED REPORT Exam: Resting ECG Reason for Exam: Respiratory Distress Patient Location: E HR:96 bpm ECG Measurements Heart Rate 96 AXIS [place] 151 P 64 QRSd 83 QRS 87 QT 352 T 44 QTc 444 Conclusion Sinus rhythm...normal P axis, V-rate 60- 99 Abnrm T, consider ischemia, anterolateral lds...T <-0.20mV, I aVL V2-V6
--- NOTE | 2024-09-14 15:00 | DI.RAD_ITS ---
Exam(s) XR CHEST 2V PA LATERAL EXAM: XR CHEST 2V PA LATERAL CLINICAL HISTORY: cough, dyspnea TECHNIQUE: 2D digital imaging was performed. Two views. COMPARISON: CR,XR XR CHEST 2V PA LATERAL from 01/21/[address] CHEST PE CTA from 03/22/2024 FINDINGS: HEART: Cardiac silhouette is partially obscured by the right pleural effusion. Aorta: Not dilated. PULMONARY VASCULATURE: Normal. MEDIASTINUM: Unremarkable. LUNGS: Moderate-sized right pleural effusion and adjacent compressive atelectasis. Mildly increased interstitial markings could indicate CHF. PLEURAL SPACE: Moderate right pleural effusion and small left pleural effusion. No pneumothorax. BONE:Unremarkable for age. SOFT TISSUES: Unremarkable. IMPRESSION: Moderate right and small left pleural effusions. Question CHF. Increased densities at right lung ba se, atelectasis versus pneumonia. DATA REPOSITORY: RADIATION DOSE DELIVERED:
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
[2024-09-14 15:11] LABS: BE (Venous) 8 mmol/L (-2-3); HCO3 (Venous) 34 mmol/L (23-28); O2 Sat (Venous) 38 %; TCO2 (Venous) 31 mmol/L (24-29); pH (Venous) 7.33 (7.31-7.41); pO2 (Venous) 26 mmHg
[2024-09-14 15:12] LABS: Abs Immature Grans 0.02 10^3/uL (0.0-0.06); Absolute Basophil Count 0.02 10^3/uL (0.0-0.2); Absolute Eosinophil Count 0.05 10^3/uL (0.0-0.7); Absolute Lymphocyte Count 1.45 10^3/uL (1.2-3.4); Absolute Monocyte Count 0.38 10^3/uL (0.1-0.8); Absolute Neutrophil Count 4.56 10^3/uL (1.2-6.7); Basophils % 0.3 %; Eosinophils % 0.8 %; HCT 45.8 % (36.0-46.0); HGB 14.4 g/dL (11.2-15.7); Immature Grans % 0.3 %; Lymphocytes % 22.4 %; MCH 30.7 pg (27.0-33.0); MCHC 31.4 % (32.0-36.0); MCV 98 fL (80-95); MPV 9.2 fL (8.0-11.0); Monocytes % 5.9 %; Neutrophils % 70.3 %; Platelet Count 230 10^3/uL (130-400); RBC 4.69 10^6/uL (3.93-5.22); RDW 14.3 % (11.7-14.6); RDW-SD 51.8 fL; WBC 6.48 10^3/uL (4.4-10.8)
[2024-09-14] MEDS: Albuterol/Ipratropium 3 ML UPD VIAL UPD ×3 (15:13→23:48)
[2024-09-14] MEDS: methylPREDNISolone SUCC 125 MG VIAL IVP (15:13)
[2024-09-14 15:14] LABS: pCO2 (Venous) 65 mmHg (41-51)
[2024-09-14 15:37] LABS: ALT 27 U/L (14-59); AST 19 U/L (15-37); Alkaline Phosphatase 79 U/L (46-116); Anion Gap 4.7 mmol/L (3-11); BUN 12 mg/dL (7-18); Bilirubin, Total 1.6 mg/dL (0.2-1.0); CO2 34.3 mmol/L (21.0-32.0); CREATININE 0.8 mg/dL (0.55-1.02); Calcium 8.8 mg/dL (8.5-10.1); Chloride 103 mmol/L (98-107); Estimated GFR 73.52 (mL/min/1.73m2); Glucose 131 mg/dL (74-106); NT-proBNP 7190 pg/mL (<300); Sodium 142 mmol/L (136-145); Troponin I 19 ng/L (<or=51)
[2024-09-14 15:48] LABS: Procalcitonin < 0.10 ng/mL
[2024-09-14 16:07] LABS: COVID-19 PCR Negative (Negative); Influenza A PCR Negative (Negative); Influenza B PCR Negative (Negative); RSV PCR Negative (Negative)
[2024-09-14 16:08] LABS: Source Nasopharynx
[2024-09-14] MEDS: Furosemide 20 MG/2 ML VIAL IVP (16:30)
[2024-09-14] MEDS: cefTRIAXone 2 GM/50 ML BAG IVPB (16:30)
[2024-09-14 16:38] LABS: Troponin I 21 ng/L (<or=51)
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
--- NOTE | 2024-09-14 18:17 | NUR.NOTE ---
Nursing Note: Patient found to have a red spot with a discharge to right lower leg. Patient stated that she hit her leg on an object recently. She stated that she has been putting bagbomb on it
[2024-09-14] MEDS: Normal Saline Flush 10 ML SYR IVP (18:18)
[2024-09-14] MEDS: Enoxaparin 40 MG/0.4 ML SYR SC (18:49)
--- NOTE | 2024-09-14 19:15 | W.PC.ACHO ---
Registration Status: Primary Language: Preferred Language: ED Information & Data Chief Complaint RespSymp 09/14/24 15:21 Chief Complaint RespSymp 09/14/24 15:05 Triage Note Patient complaining of SOB, 09/14/24 14:53 cough for 1 week. EMS reported patient complaining of SOB and ingestion. EMS gave 1 douneb and 324 mg of ASA Medical / Surgical History (Last Reviewed 05/14/24 @ 13:31 by Severino Perez NP) Palliative care encounter Respiratory failure with hypoxia Abnormal gait Acquired cyst of kidney (05/23/05) Alcohol abuse Closed fracture of two ribs (12/01/09) Diverticulitis of colon (05/23/89) Electroencephalogram abnormality (05/23/07) Hepatitis A virus infection Pneumococcal pneumonia (05/23/98) Viral meningitis (12/21/05) Subacromial bursitis of left shoulder joint (04/24/17) (Last Reviewed 05/14/24 @ 13:31 by Severino Perez NP) History of bilateral ligation of fallopian tubes History of colectomy (1988) Status post appendectomy Status post cholecystectomy Status post hip replacement Most Recent Vital Signs Temperature 36.8 C 09/14/24 18:22 Temperature Source Tympanic 09/14/24 14:58 Pulse 120 H 09/14/24 18:22 Pulse Rhythm Regular 09/14/24 18:22 Pulse 98 H 09/14/24 17:40 Respiratory Rate 21 09/14/24 18:22 Respiratory Effort Short of Breath, Labored 09/14/24 18:22 Respiratory Depth Shallow 09/14/24 18:22 Respiratory Pattern Tachypnea 09/14/24 18:22 Blood Pressure 122/74 09/14/24 18:22 Blood Pressure Mean 82 09/14/24 17:01 Pulse Oximetry 98 09/14/24 18:22 Respiratory End-tidal CO2 42 09/14/24 17:00 Oxygen Delivery Method Nasal Cannula 09/14/24 18:22 Oxygen Flow Rate 2 09/14/24 18:22 Allergies nabumetone (From Relafen) Adverse Reaction (Intermediate, Verified 09/14/24 14:58) GI UPSET Precautions Isolation PUI 09/14/24 15:21 Active Medications Generic Name Dose Route Start Last Admin Trade Name Freq PRN Reason Stop Dose Admin Albuterol/Ipratropium 3 ml 09/14/24 18:00 09/14/24 18:50 Albuterol/Ipratropium 3 Ml Upd Vial UPD 3 ml Q6H ERUM Administration Enoxaparin Sodium 40 mg 09/14/24 18:00 09/14/24 18:49 Enoxaparin 40 Mg/0.4 Ml Syr SC 40 mg Q24H ERUM Administration Sodium Chloride 0 ml 09/14/24 20:00 09/14/24 18:18 Normal Saline Flush 10 Ml Syr IVP 10 ml BID ERUM Administration IV IV Catheter Type [Left Saline Lock Antecubital] IV Catheter Gauge [Left 18 Antecubital] Diet Orders Category Date Time Status Heart Healthy Eating [DIET] Nutrition 09/14/24 Dinner Active Diagnostics 09/14/24 09/14/24 09/14/24 Range/Units 16:13 15:05 14:59 WBC 6.48 (4.4-10.8) 10^3/uL RBC 4.69 (3.93-5.22) 10^6/uL Hgb 14.4 (11.2-15.7) g/dL Hct 45.8 (36.0-46.0) % MCV 98 H (80-95) fL MCH 30.7 (27.0-33.0) pg MCHC 31.4 L (32.0-36.0) % RDW 14.3 (11.7-14.6) % Plt Count 230 (130-400) 10^3/uL MPV 9.2 (8.0-11.0) fL Immature Gran % 0.3 % Neutrophils % 70.3 % Lymphocytes % 22.4 % Monocytes % 5.9 % Eosinophils % 0.8 % Basophils % 0.3 % Nucleated RBC % 0.0 (0.0-0.3) % Absolute Neutrophils 4.56 (1.2-6.7) 10^3/uL Absolute Lymphocytes 1.45 (1.2-3.4) 10^3/uL Absolute Monocytes 0.38 (0.1-0.8) 10^3/uL Absolute Eosinophils 0.05 (0.0-0.7) 10^3/uL Absolute Basophils 0.02 (0.0-0.2) 10^3/uL VBG pH 7.33 (7.31-7.41) VBG pCO2 65 H* (41-51) mmHg VBG pO2 26 mmHg VBG HCO3 34 H (23-28) mmol/L VBG Total CO2 31 H (24-29) mmol/L VBG O2 Saturation 38 % VBG Base Excess 8 H (-2-3) mmol/L Sodium 142 (136-145) mmol/L Potassium 4.0 (3.5-5.1) mmol/L Chloride 103 (98-107) mmol/L Carbon Dioxide 34.3 H (21.0-32.0) mmol/L Anion Gap 4.7 (3-11) mmol/L BUN 12 (7-18) mg/dL Creatinine 0.8 (0.55-1.02) mg/dL Est GFR (CKD-EPI 2020) 73.52 (mL/min/1.73m2) Glucose 131 H (74-106) mg/dL Calcium 8.8 (8.5-10.1) mg/dL Magnesium 2.0 (1.8-2.4) mg/dL Total Bilirubin 1.6 H (0.2-1.0) mg/dL AST 19 (15-37) U/L ALT 27 (14-59) U/L Alkaline Phosphatase 79 (46-116) U/L Troponin I 21 19 (<or=51) ng/L NT-Pro-B Natriuret Pep 7190 H (<300) pg/mL Total Protein 6.0 L (6.4-8.2) g/dL Albumin 3.0 L (3.4-5.0) g/dL Procalcitonin < 0.10 ng/mL COVID-19 Source Nasopharynx SARS-CoV-2 (PCR) Negative (Negative) Influenza Type A (PCR) Negative (Negative) Influenza Type B (PCR) Negative (Negative) RSV (PCR) Negative (Negative) 09/14/24 17:37 Blood Culture - Pending Blood 09/14/24 17:30 Blood Culture - Pending Blood Intake and Output - 24 Hour Total 09/14/24 14:44 thru 09/14/24 18:59 Intake Total 50 Output Total 750 Balance -700 Weight 81.647 kg Intake: IV 50 Output: Urine 750 Other: Urine Color Pale Yellow Urine Appearance Cloudy Urine Odor Normal Stool Size Moderate Stool Characteristics Formed Hard Falls Risk Assessment History of Falls Previous History 09/14/24 18:22 Contributing Factors Impairments,Incontinence 09/14/24 18:22 Ambulatory Aids Uses ambulatory device 09/14/24 18:22 Tubes/Lines With any additional score 09/14/24 18:22 Gait Evaluation W/any additional score 09/14/24 18:22 Cognition No cognitive impairment 09/14/24 18:22 Fall Total Score 76 09/14/24 18:22 Level of Risk Maximum Risk 09/14/24 18:22 Notes 09/14/24 18:17 Nursing Notes by Aaliyah Whitfield Nursing Note: Patient found to have a red spot with a discharge to right lower leg. Patient stated that she hit her leg on an object recently. She stated that she has been putting bagbomb on it Initialized on 09/14/24 18:17 - END OF NOTE v v v v v v v v v Sending and/or Receiving Nurses: Please use comment section below to note any information pertinent to the patient hand-off not included above. Information / Comments: Report received from: JOSE C Fischer RN. Report called at 17:39
[2024-09-14] MEDS: methylPREDNISolone SUCC 125 MG VIAL 60 MG IVP (21:01)
[2024-09-14] MEDS: AZITHROMYCIN 500 MG in Normal Saline 250 ML 250 MG IVPB (21:29)
[2024-09-14] MEDS: Acetaminophen 325 MG TAB PO (22:44)
[2024-09-15] VITALS (8 sets, daily range): BP systolic 105–130; BP diastolic 46–75; PULSE 69–115; RESP 16–20; TEMP 36.5–36.7; O2SAT 89–93
[2024-09-15] MEDS: methylPREDNISolone SUCC 125 MG VIAL 60 MG IVP ×3 (05:10→21:03)
[2024-09-15] MEDS: Albuterol/Ipratropium 3 ML UPD VIAL UPD (06:23)
[2024-09-15 06:54] LABS: Abs Immature Grans 0.02 10^3/uL (0.0-0.06); Absolute Lymphocyte Count 0.58 10^3/uL (1.2-3.4); Absolute Monocyte Count 0.02 10^3/uL (0.1-0.8); Absolute Neutrophil Count 2.75 10^3/uL (1.2-6.7); HGB 14.2 g/dL (11.2-15.7); Immature Grans % 0.6 %; Lymphocytes % 17.2 %; MCH 30.8 pg (27.0-33.0); MCHC 32.3 % (32.0-36.0); MCV 95 fL (80-95); MPV 9.9 fL (8.0-11.0); Monocytes % 0.6 %; Neutrophils % 81.6 %; Platelet Count 211 10^3/uL (130-400); RBC 4.61 10^6/uL (3.93-5.22); RDW-SD 49.3 fL; WBC 3.37 10^3/uL (4.4-10.8)
[2024-09-15 07:07] LABS: Anion Gap 5.5 mmol/L (3-11); BUN 11 mg/dL (7-18); CO2 31.5 mmol/L (21.0-32.0); CREATININE 0.7 mg/dL (0.55-1.02); Chloride 107 mmol/L (98-107); Glucose 149 mg/dL (74-106); Sodium 144 mmol/L (136-145)
[2024-09-15] MEDS: Budesonide/Formoterol 80/4.5 6.9 GM 60 PUFF INH IH ×2 (08:11→19:51)
[2024-09-15] MEDS: Tiotropium Bromide-Respimat 10 PUFF INH 2 PUFF IH (08:11)
[2024-09-15] MEDS: Normal Saline Flush 10 ML SYR IVP ×2 (08:34→19:52)
--- NOTE | 2024-09-15 09:05 | PGE_ITS ---
Date of Service Date of service: 09/15/24 Time of Service: 09:05 Assessment and Plan Assessment and plan (1) COPD exacerbation: Status: Acute Assessment and plan: Continue steroids. Continue scheduled + prn nebs, Continue azithromycin Encourage pulmonary toilet. Resp therapy consult O2 PRN - currently on 2 LPM NC with SPO2 > 88% - has home O2 prn; states she doesn't use it much but has in the past (Sarika) Patient reports she takes trelegy in the morning, followed by albuterol 45 minutes to an hour later, and then another dose of trelegy Lungs decreased throughout Speaks in full sentences, appears anxious, pressured speech, no accessory muscles, no adventitious sounds. . (2) Acute respiratory failure with hypoxia: Status: Resolved Assessment and plan: Due to above As above (3) Acute bronchitis: Status: Acute Assessment and plan: As above (4) DVT prophylaxis: Status: Deleted Assessment and plan: SC enoxaparin (5) Discharge planning issues: Status: Deleted Assessment and plan: Full code Discussed w Dr Toscano Subjective Subjective Patient reports: no new complaints, feels better, tolerating a regular diet, voiding w/o difficulty, bowel movement, shortness of breath (some SOB when talking) and afebrile; denies diarrhea, nausea or vomiting Exam Const General: no acute distress Orientation: alert HENMT Head: normal to inspection Ears: external ears normal General nose exam: external nose normal Mouth: moist mucous membranes Eyes General: appearance normal, both eyes and all related structures Neck Neck: normal visual inspection Resp Effort & Inspection: normal respiratory effort, able to speak in complete sentences, no audible wheezes, not tachypneic, no tracheal deviation and no use of accessory muscles Auscultation: diminished lung sounds Cardio Jugular venous pressure: no JVD Rate: regular rate Heart Sounds: no murmurs Skin General skin exam: no rashes or lesions noted Neuro General: patient alert and patient oriented x3 Extrem General: normal to inspection Psych Mental Status: mental status grossly normal Speech and Movement: speech and movement normal Mood: congruent mood Affect: normal affect Objective Last Vital Signs Temp 36.7 C 09/15/24 08:29 Pulse 106 H 09/15/24 08:29 Resp 20 09/15/24 08:29 BP 109/54 L 09/15/24 08:29 Pulse Ox 92 09/15/24 08:45 Laboratory Results - last 24 hr 09/14/24 09/14/24 09/14/24 14:59 15:05 16:13 WBC 6.48 RBC 4.69 Hgb 14.4 Hct 45.8 MCV 98 H MCH 30.7 MCHC 31.4 L RDW 14.3 Plt Count 230 MPV 9.2 Immature Gran % 0.3 Neutrophils % 70.3 Lymphocytes % 22.4 Monocytes % 5.9 Eosinophils % 0.8 Basophils % 0.3 Nucleated RBC % 0.0 Absolute Neutrophils 4.56 Absolute Lymphocytes 1.45 Absolute Monocytes 0.38 Absolute Eosinophils 0.05 Absolute Basophils 0.02 VBG pH 7.33 VBG pCO2 65 H* VBG pO2 26 VBG HCO3 34 H VBG Total CO2 31 H VBG O2 Saturation 38 VBG Base Excess 8 H Sodium 142 Potassium 4.0 Chloride 103 Carbon Dioxide 34.3 H Anion Gap 4.7 BUN 12 Creatinine 0.8 Est GFR (CKD-EPI 2020) 73.52 Glucose 131 H Calcium 8.8 Magnesium 2.0 Total Bilirubin 1.6 H AST 19 ALT 27 Alkaline Phosphatase 79 Troponin I 19 21 NT-Pro-B Natriuret Pep 7190 H Total Protein 6.0 L Albumin 3.0 L Procalcitonin < 0.10 COVID-19 Source Nasopharynx SARS-CoV-2 (PCR) Negative Influenza Type A (PCR) Negative Influenza Type B (PCR) Negative RSV (PCR) Negative 09/15/24 05:44 WBC 3.37 L RBC 4.61 Hgb 14.2 Hct 44.0 MCV 95 MCH 30.8 MCHC 32.3 RDW 14.0 Plt Count 211 MPV 9.9 Immature Gran % 0.6 Neutrophils % 81.6 Lymphocytes % 17.2 Monocytes % 0.6 Eosinophils % 0.0 Basophils % 0.0 Nucleated RBC % 0.0 Absolute Neutrophils 2.75 Absolute Lymphocytes 0.58 L Absolute Monocytes 0.02 L Absolute Eosinophils 0.00 Absolute Basophils 0.00 VBG pH VBG pCO2 VBG pO2 VBG HCO3 VBG Total CO2 VBG O2 Saturation VBG Base Excess Sodium 144 Potassium 4.0 Chloride 107 Carbon Dioxide 31.5 Anion Gap 5.5 BUN 11 Creatinine 0.7 Est GFR (CKD-EPI 2020) 86.30 Glucose 149 H Calcium 9.0 Magnesium 2.0 Total Bilirubin AST ALT Alkaline Phosphatase Troponin I NT-Pro-B Natriuret Pep Total Protein Albumin Procalcitonin COVID-19 Source SARS-CoV-2 (PCR) Influenza Type A (PCR) Influenza Type B (PCR) RSV (PCR) Time Spent with Patient Time Spent with Patient: 25-34 minutes Time was spent: preparing to see the patient(eg.review tests), ordering medications,tests, procedures, referring, communicating with other health special needs child caregiver, indepentently interpreting results, counseling the patient and care coordination
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
--- NOTE | 2024-09-15 12:15 | RT.EKG_ITS ---
APPROVED REPORT Exam: Resting ECG Reason for Exam: Chest pain Patient Location: I HR:108 bpm ECG Measurements Heart Rate 108 AXIS OH 144 P 50 QRSd 94 QRS 73 QT 343 T -5 QTc 460 Conclusion Sinus tachycardia...rate> 99 Borderline T abnormalities, inferior leads...T flat/neg, II III aVF Partial missing lead(s): V1
[2024-09-15] MEDS: LORazepam 0.5 MG TAB PO (12:40)
--- NOTE | 2024-09-15 12:50 | RESPIRATORY ---
RT Initial Evalutation/Assessment Start: 09/14/24 19:53 Freq: .q shift and prn Status: Active Protocol: Document 09/15/24 08:45 (Rec: 09/15/24 08:52 [id number]) RT Assessment Pulmonary History Pulmonary History COPD,Other Smoking History Smoking/Tobacco Use Status Former Tobacco Use Tobacco: How many years used 50 Quit Date 08/22/21 Tobacco Type cigarettes Packs per Day 1 Cigarettes per Day 20 Years smoked 50 Smoking packs per day 1 OXYGEN HISTORY: Supplemental O2 At Rest 2 With Exertion 2 CPAP Settings N/A BIPAP Settings N/A Trilogy/AVAPS Settings N/A DME/Compliance DME [employer] [facility] Reports she has not been using her home oxygen for almost a year. Current Respiratory Symptoms Current Respiratory Symptoms Cough,Shortness of breath, Sputum production Activity Activity Level Normally able to perform ADLs independently. Respiratory Breath Sounds Breath Sounds Faint wheezing or rhonci, decreased sounds throughout Response Mild response,subjective improvement Pulse Rate <100 Respiratory Rate <18 Shortness of Breath On exertion Respiratory Therapy Score Total 4 Assessment and Plan RT Treatment Protocol Bronchodilator Aerosol Therapy Protocol,Lung Expansion Therapy Protocol,Bronchial Hygiene Therapy Protocol Note Pt uses Trelegy inhaler at home at baseline. Will substitute here with Symbicort and Spiriva. Pt has prescription for 2L O2 14/01 through [employer]. Pt reports that she has not been using her home O2 for aprx. 1 year and felt she did not need it. Carolyn does have a home pulse oximeter and states she knows how to check her SpO2. Pt scored Mild 4 on assessment . RT has given her a Vibra-PEP acapella device and an incentive spirometer and provided instructions on both devices. Pt is currently resting on 2L nasal cannula with SpO2 92%, able to hold conversation well with no concerning desaturations. Pt does have productive cough and rhonchi throughout her lungs.
[2024-09-15] MEDS: Ondansetron 4 MG/2 ML VIAL IVP (13:00)
[2024-09-15] MEDS: Furosemide 40 MG/4 ML VIAL IVP (13:00)
[2024-09-15 13:12] LABS: Troponin I 11 ng/L (<or=51)
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
[2024-09-15] MEDS: cefTRIAXone 1 GM/50 ML BAG IVPB (15:53)
[2024-09-15] MEDS: Pantoprazole 40 MG VIAL IVP (15:53)
[2024-09-15] MEDS: Enoxaparin 40 MG/0.4 ML SYR SC (17:17)
[2024-09-15] MEDS: AZITHROMYCIN 500 MG in Normal Saline 250 ML 250 MG IVPB (19:51)
[2024-09-16] VITALS (7 sets, daily range): BP systolic 94–123; BP diastolic 51–73; PULSE 83–103; RESP 18–20; TEMP 36.5–36.9; O2SAT 92–94
[2024-09-16] MEDS: methylPREDNISolone SUCC 125 MG VIAL 60 MG IVP ×2 (05:32→12:32)
[2024-09-16] MEDS: Normal Saline Flush 10 ML SYR IVP ×2 (05:34→19:31)
[2024-09-16 06:58] LABS: Abs Immature Grans 0.04 10^3/uL (0.0-0.06); Absolute Basophil Count 0.01 10^3/uL (0.0-0.2); Absolute Eosinophil Count 0.01 10^3/uL (0.0-0.7); Absolute Monocyte Count 0.12 10^3/uL (0.1-0.8); Absolute Neutrophil Count 8.39 10^3/uL (1.2-6.7); Basophils % 0.1 %; Eosinophils % 0.1 %; HGB 13.9 g/dL (11.2-15.7); Immature Grans % 0.4 %; Lymphocytes % 6.5 %; MCH 30.3 pg (27.0-33.0); MCHC 31.6 % (32.0-36.0); MCV 96 fL (80-95); MPV 10.1 fL (8.0-11.0); Monocytes % 1.3 %; Neutrophils % 91.6 %; Platelet Count 213 10^3/uL (130-400); RBC 4.59 10^6/uL (3.93-5.22); RDW-SD 49.4 fL; WBC 9.17 10^3/uL (4.4-10.8)
[2024-09-16 07:10] LABS: Anion Gap 5.7 mmol/L (3-11); BUN 17 mg/dL (7-18); CO2 34.3 mmol/L (21.0-32.0); CREATININE 0.7 mg/dL (0.55-1.02); Calcium 8.7 mg/dL (8.5-10.1); Chloride 105 mmol/L (98-107); Glucose 145 mg/dL (74-106); Magnesium 2.1 mg/dL (1.8-2.4); Potassium 4.4 mmol/L (3.5-5.1); Sodium 145 mmol/L (136-145)
[2024-09-16] MEDS: Omeprazole 20 MG CAPCR PO (08:13)
--- NOTE | 2024-09-16 08:32 | CMPROGNOTE_ITS ---
Date of service: 09/16/24 Time of Service: 08:33 Care Management Progress Note Progress Note Text Progress Note Text: Carolyn was sitting on the side of her bed, eating lunch when CM met with her. She engages in conversation and seems to have good community support at the [facility] and is connected with [facility]. Carolyn reports that she doesn't leave home, all services come to her, including her PCP. Her community plant care worker through the [employer] is Na Morales. 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 A PT consult is pending, currently no services through [facility]. Discharge Potential Discharge Needs: PCP F/U Appt Anticipated Barriers to Discharge: None Identified Patient/Family Education Needs: Review discharge instructions, discuss Ask Me Three Transportation: Private vehicle Plan: PT eval is pending. Anticipate, Carolyn will be discharged home with a resumption of her caregiver supports ([employer] moderate needs) and New [facility] services (if indicated). She will follow up with her PCP (home visit) and discharge plan of care as directed. She will transport via private vehicle. CM will follow. Social Determinants of Health Screening Will the Patient Participate in the Screening?: Unable to obtain
[2024-09-16] MEDS: Budesonide/Formoterol 80/4.5 6.9 GM 60 PUFF INH IH ×2 (09:08→19:33)
[2024-09-16] MEDS: Tiotropium Bromide-Respimat 10 PUFF INH 2 PUFF IH (09:09)
--- NOTE | 2024-09-16 13:55 | CHAPLAIN ---
Carolyn was on the phone when I walked in. She stopped speaking while I introduced myself. She said she's fine and thanked me for stopping in, then continued on with her conversation.
[2024-09-16] MEDS: LORazepam 0.5 MG TAB PO (15:21)
[2024-09-16] MEDS: cefTRIAXone 1 GM/50 ML BAG IVPB (15:24)
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
[2024-09-16] MEDS: Enoxaparin 40 MG/0.4 ML SYR SC (17:35)
--- NOTE | 2024-09-16 18:48 | W.PM.PROGNOT ---
Date of Service Date of service: 09/16/24 Time of Service: 13:00 Assessment and Plan Assessment and plan (1) COPD exacerbation: Status: Acute Assessment and plan: Continue steroids. Changed to oral Continue scheduled + prn nebs, Continue azithromycin changed to oral Encourage pulmonary toilet. Resp therapy consult O2 PRN - currently on 2 LPM NC with SPO2 > 88% - has home O2 prn; states she doesn't use it much but has in the past (Sarika) Patient reports she takes trelegy in the morning, followed by albuterol 45 minutes to an hour later, and then another dose of trelegy Lungs decreased throughout Speaks in full sentences, appears anxious, continue lorazepam prn pressured speech, no accessory muscles, no adventitious sounds. . (2) Acute respiratory failure with hypoxia: Status: Resolved Assessment and plan: Due to above As above (3) Acute bronchitis: Status: Acute Assessment and plan: As above (4) DVT prophylaxis: Status: Deleted Assessment and plan: SC enoxaparin (5) Discharge planning issues: Status: Deleted Assessment and plan: Full code Rx's sent Discussed w Dr Toscano (6) Anxiety: Status: Chronic Assessment and plan: Continue prn lorazepam while in hospital Subjective Subjective Patient reports: no new complaints, tolerating liquids well, tolerating a regular diet, voiding w/o difficulty, bowel movement and afebrile; denies flatus, diarrhea, nausea, vomiting or shortness of breath Interval history since last seen: Sitting in chair, comfortable, no respiratory distress. Patient would like lorazepam prescription for home. She has not been prescribed lorazepam since 2019. She did go home on hydroxyzine and states she did not like it at all. She has received lorazepam while here for moderate anxiety, once yesterday, once today with good relief. Advised to discuss with PCP. She is in the midst of changing PCP's Exam Const General: no acute distress Orientation: alert HENMT Head: normal to inspection Ears: external ears normal General nose exam: external nose normal Mouth: moist mucous membranes Eyes General: appearance normal, both eyes and all related structures Neck Neck: normal visual inspection Resp Effort & Inspection: normal respiratory effort, able to speak in complete sentences, no audible wheezes, not tachypneic, no tracheal deviation and no use of accessory muscles Auscultation: diminished lung sounds Cardio Jugular venous pressure: no JVD Rate: regular rate Heart Sounds: no murmurs Skin General skin exam: no rashes or lesions noted Neuro General: patient alert and patient oriented x3 Extrem General: normal to inspection Psych Mental Status: mental status grossly normal Speech and Movement: speech and movement normal Mood: congruent mood Affect: normal affect Objective Last Vital Signs Temp 36.8 C 09/16/24 14:53 Pulse 92 H 09/16/24 14:53 Resp 20 09/16/24 14:53 BP 103/56 L 09/16/24 14:53 Pulse Ox 92 09/16/24 14:53 Laboratory Results - last 24 hr 09/16/24 05:42 WBC 9.17 RBC 4.59 Hgb 13.9 Hct 44.0 MCV 96 H MCH 30.3 MCHC 31.6 L RDW 14.0 Plt Count 213 MPV 10.1 Immature Gran % 0.4 Neutrophils % 91.6 Lymphocytes % 6.5 Monocytes % 1.3 Eosinophils % 0.1 Basophils % 0.1 Nucleated RBC % 0.0 Absolute Neutrophils 8.39 H Absolute Lymphocytes 0.60 L Absolute Monocytes 0.12 Absolute Eosinophils 0.01 Absolute Basophils 0.01 Sodium 145 Potassium 4.4 Chloride 105 Carbon Dioxide 34.3 H Anion Gap 5.7 BUN 17 Creatinine 0.7 Est GFR (CKD-EPI 2020) 86.30 Glucose 145 H Calcium 8.7 Magnesium 2.1 Time Spent with Patient Time Spent with Patient: 25-34 minutes Time was spent: preparing to see the patient(eg.review tests), ordering medications,tests, procedures, referring, communicating with other health child care coordinator, indepentently interpreting results, counseling the patient and care coordination
[2024-09-16] MEDS: Azithromycin 250 MG TAB 500 MG PO (19:31)
[2024-09-17 02:38] VITALS: BP 126/76; PULSE 87; RESP 18; TEMP 36.4; O2SAT 94
[2024-09-17 06:21] LABS: Abs Immature Grans 0.08 10^3/uL (0.0-0.06); Absolute Eosinophil Count 0.01 10^3/uL (0.0-0.7); Absolute Lymphocyte Count 0.93 10^3/uL (1.2-3.4); Absolute Monocyte Count 0.62 10^3/uL (0.1-0.8); Absolute Neutrophil Count 9.52 10^3/uL (1.2-6.7); Eosinophils % 0.1 %; HCT 44.6 % (36.0-46.0); Immature Grans % 0.7 %; Lymphocytes % 8.3 %; MCH 30.4 pg (27.0-33.0); MCHC 31.4 % (32.0-36.0); MCV 97 fL (80-95); MPV 9.6 fL (8.0-11.0); Monocytes % 5.6 %; Neutrophils % 85.3 %; Platelet Count 195 10^3/uL (130-400); RDW 13.9 % (11.7-14.6); RDW-SD 50.2 fL; WBC 11.16 10^3/uL (4.4-10.8)
[2024-09-17 06:32] LABS: Anion Gap 4.4 mmol/L (3-11); BUN 21 mg/dL (7-18); CO2 34.6 mmol/L (21.0-32.0); CREATININE 0.7 mg/dL (0.55-1.02); Chloride 106 mmol/L (98-107); Glucose 118 mg/dL (74-106); Magnesium 2.2 mg/dL (1.8-2.4); Potassium 4.6 mmol/L (3.5-5.1); Sodium 145 mmol/L (136-145)
[2024-09-17] MEDS: Omeprazole 20 MG CAPCR PO (06:58)
[2024-09-17] MEDS: LORazepam 0.5 MG TAB PO (06:58)
[2024-09-17 07:49] VITALS: BP 116/77; PULSE 81; RESP 14; TEMP 36.6; O2SAT 93
[2024-09-17 07:54] VITALS: O2SAT 94
[2024-09-17] MEDS: Tiotropium Bromide-Respimat 10 PUFF INH 2 PUFF IH (07:54)
[2024-09-17] MEDS: Budesonide/Formoterol 80/4.5 6.9 GM 60 PUFF INH IH (07:54)
[2024-09-17] MEDS: predniSONE 20 MG TAB 40 MG PO (08:27)
[2024-09-17] MEDS: Normal Saline Flush 10 ML SYR IVP (08:27)
[2024-09-17] MEDS: Cefpodoxime 200 MG TAB PO (08:27)
[2024-09-17 09:25] VITALS: O2SAT 89
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
--- NOTE | 2024-09-17 09:49 | PDOC.CMDIS ---
Date of service: 09/17/24 Time of Service: 09:49 LACE Index Scoring Tool Questions: Length of Stay (in days): 3 Was the patient admitted via the E.D.?: Yes Comorbidities: Chronic Pulmonary Disease E.D. Visits: 2 Answers: Total Score: 10 Risk of Readmission: High Risk Care Management Discharge Plan Reason for Hospitalization: Exacerbation of COPD Discharge Plan: Carolyn is discharged home with resumption of her community supports and services. Carolyn will follow up with her PCP and discharge plan of care as instructed. She will transport via private vehicle with family. Patient/Family Education Needs: Review discharge instructions, limitations, medications and plan to follow up with community providers. Services Needed at Discharge: Home Health Care Services (New HH PT is recommended, pt declines. ) SDOH Health Related Social Needs: No Data to Display
[2024-09-17 10:55] VITALS: BP 113/69; PULSE 86; RESP 24; TEMP 36.3; O2SAT 84
[2024-09-17 11:56] VITALS: BP 125/70; PULSE 85; RESP 16; TEMP 36.9; O2SAT 90
--- NOTE | 2024-09-17 12:51 | PT.INTREAT ---
PT Notes Visit Reasons: Exacerbation of COPD Inpatient Physical Therapy Treatment Note [facility] Date: 09/17/2024 PRECAUTIONS:Oxygen to keep sats >88% SUBJECTIVE: Pt reports Respiratory therapist took her off oxygen approximately 2 hours ago. She states she is going home today OBJECTIVE:pt presented semireclined in bed on RA. ? PAIN: denies VITALS: ? Pre-Treatment: on RA 82% RT present increased to 2L/min sats 93% during ambulation : on 2L/Min with cues for breath control >88% without cues 85% ? Post-Treatment: on 2 L 93% Therapeutic Activities (50724): Direct one-on-one instruction in dynamic activities to improve functional performance. ? BED MOBILITY/TRANSFERS? Rolling L/R: independent Supine-sit: independent? Sit-supine: independent ? Sit-stand: supervision with cues to push up from surface? Stand-sit: supervision with cues to reach back? Provided skilled cues and instruction on performance and technique throughout. Patient education regarding pacing and breathing techniques to maximize activity tolerance? Exercises ? deep breathing and pursed lip breathing 2 sets x 30 sec each at rest. then PLB during standing rests of ambulation Ambulation ? Assistive Device: FWW?with w/c follow for rest periods ? Weight bearing: Full Assist: SBA ? Distance:?50 feet x 2 with stand rest x 2 per 50 feet for breath control. and sit rest x 3 mins performing PLB for breath control? Deviation: Increased WB through BUE for accessory muscle use for breath control. cross over step x 1 able to regain without physical assist? Provided skilled instruction in proper exercise performance ASSESSMENT:?Pt tolerates session well requiring cues for breath control. Pt with poor use of pursed lip breathing(PLB) during functional tasks and at rest. She requires cues to perform PLB for more than 1 breath to assist with maintaining sats >88%. PLAN: cont with PT POC if pt remains in facility TREATMENT CODE/TIME: 86373, [id number]/ [id number] DISCHARGE RECOMMENDATION: Home with [facility] and PT
== END 2024-09-17 12:26 | disposition home or self-care (01) | DRG 191 ==
LOC: ER 17:29 → MS 18:00
PROVIDERS: Nurse Practitioner Family; Admitting Provider Hospitalist; Emergency Provider Emergency Medicine; PCP Nurse Practitioner Family; Responsible Provider Nurse Practitioner Acute Care; Visit Provider Hospitalist
DX: J44.1 Chronic obstructive pulmonary disease with (acute) exacerbation (principal); I50.20 Unspecified systolic (congestive) heart failure; J96.11 Chronic respiratory failure with hypoxia; J20.9 Acute bronchitis, unspecified; J44.0 Chronic obstructive pulmonary disease with (acute) lower respiratory infection; R54 Age-related physical debility; N81.2 Incomplete uterovaginal prolapse; G89.4 Chronic pain syndrome; K44.9 Diaphragmatic hernia without obstruction or gangrene; E78.5 Hyperlipidemia, unspecified; F17.210 Nicotine dependence, cigarettes, uncomplicated; Z90.49 Acquired absence of other specified parts of digestive tract; Z99.81 Dependence on supplemental oxygen; F41.9 Anxiety disorder, unspecified
CPT/HCPCS: 00123; 36415; 80048; 80053; 82805; 84145; 87040; 87637; 93005; 94640; 96365; 96375; 97110; 97162; 97530; 99285; J1650; 71046; 83735; 83880; 84484; 85025; 93010; 93306; 94664; 94667; 94668; 94760; 99222; 99232; 99239; J0456; J0696; J1940; J1941; J2405; J2470; J2919; J7512; J7620

== ENCOUNTER 2025-04-15 10:03 | Emergency (ER) | payer MEDICARE, MEDICAID, SELFPAY ==
[2025-04-15 10:11] VITALS: BP 147/113; PULSE 84; RESP 20; O2SAT 92
[2025-04-15 10:14] VITALS: BP 147/113; PULSE 84; RESP 20; O2SAT 92
--- NOTE | 2025-04-15 10:15 | RT.EKG_ITS ---
APPROVED REPORT Exam: Resting ECG Reason for Exam: weakness Patient Location: E HR:80 bpm ECG Measurements Heart Rate 80 AXIS GA 156 P 63 QRSd 95 QRS 83 QT 378 T 69 QTc 437 Conclusion Sinus rhythm...normal P axis, V-rate 60- 99 Nonspecific T abnormalities, anterior leads...T <-0.10mV, V2-V4 No Occlusion OK
[2025-04-15 10:38] LABS: Abs Immature Grans 0.02 10^3/uL (0.0-0.06); HCT 46.5 % (36.0-46.0); HGB 15.1 g/dL (11.2-15.7); Immature Grans % 0.4 %; MCH 30.3 pg (27.0-33.0); MCHC 32.5 % (32.0-36.0); MCV 93 fL (80-95); MPV 10.2 fL (8.0-11.0); Platelet Count 185 10^3/uL (130-400); RBC 4.99 10^6/uL (3.93-5.22); RDW 13.2 % (11.7-14.6); RDW-SD 45.1 fL; WBC 5.58 10^3/uL (4.4-10.8)
[2025-04-15 10:56] LABS: ALT 19 U/L (14-59); AST 18 U/L (15-37); Albumin 3.4 g/dL (3.4-5.0); Alkaline Phosphatase 83 U/L (46-116); Anion Gap 8.0 mmol/L (3-11); BUN 7 mg/dL (7-18); Bilirubin, Total 2.1 mg/dL (0.2-1.0); CO2 32.0 mmol/L (21.0-32.0); Calcium 9.5 mg/dL (8.5-10.1); Chloride 104 mmol/L (98-107); Estimated GFR 89.56 (mL/min/1.73m2); Glucose 77 mg/dL (74-106); Lipase 20 U/L (<78); Magnesium 1.9 mg/dL (1.8-2.4); Potassium 3.8 mmol/L (3.5-5.1); Sodium 144 mmol/L (136-145); Total Protein 6.5 g/dL (6.4-8.2); Troponin I 6 ng/L (<or=51)
[2025-04-15] MEDS: Normal Saline 500 ML IV (10:57)
[2025-04-15] MEDS: ACETAMINOPHEN 500 MG/50 ML BAG 200 MG IVPB (10:57)
[2025-04-15 11:35] LABS: Troponin I 6 ng/L (<or=51)
[2025-04-15] MEDS: Omnipaque 350 MG/ML 100 ML BTL IJ (12:06)
[2025-04-15] MEDS: Normal Saline - Diluent 50 ML VIAL IJ (12:06)
--- NOTE | 2025-04-15 12:13 | DI.CT_ITS ---
Exam(s) CT ABDOMEN PELVIS W EXAM: CT ABDOMEN PELVIS W CLINICAL HISTORY: abdominal pain TECHNIQUE: Imaging Protocol: Axial computed tomography images with coronal and sagittal reformatted images were created and reviewed. CONTRAST MATERIAL: Intravenous: Omnipaque 350 Contrast volume:75 mL Oral: No COMPARISON: CT CT ABDOMEN PELVIS W from 01/22/[address] CHEST PE CTA from 09/11/[address] CHEST PE ABD PELVIS W from 09/28/[address] ABDOMEN PELVIS W from 05/10/2023 FINDINGS: ABDOMEN: Lung Bases: There is a moderate size hiatal hernia. There is unchanged scarring in the right lung base. Liver: Normal density. No measurable mass. Portal, Superior Mesenteric, and Splenic Veins: Unremarkable. Gallbladder and Biliary Tract: Status post cholecystectomy. The common duct measures 1.1 cm in diameter. This is stable and likely reflects post cholecystectomy state. Pancreas: Normal density, no abnormal calcifications or inflammatory process. Spleen: Normal. Adrenals: No masses seen. Kidneys: Normal size, contour and axis. No radiodense stones or obstructive uropathy. No masses seen. The cyst adjacent to the right kidney is unchanged. No follow-up is recommended. Abdominal Aorta: Abdominal portion non-dilated. Atherosclerotic calcification is present. Bowel: There is diverticulosis seen in the colon but no findings to suggest acute diverticulitis are seen at this time. There is stool throughout the colon which may reflect constipation. There is a diverticulum in the duodenum adjacent to the head of the pancreas. There is no bowel wall thickening or obstruction present. Peritoneal Cavity: No ascites, collection or mesenteric inflammatory response. No free air. Lymph Nodes: Within normal limits. Bones: Within normal limits for the patient's age. There is a left total hip arthroplasty. Soft Tissues: Unremarkable. PELVIS: Bladder: Symmetric distention, no gross wall thickening. Reproductive Organs: There are several calcified uterine fibroids. Lymph Nodes: Within normal limits. Bones: Within normal limits for the patient's age. IMPRESSION: 1. No acute abdominal or pelvic process. 2. Colonic diverticulosis without evidence of acute diverticulitis. RADIATION DOSE DELIVERED: 514.73mGy.cm Total DLP DATA REPOSITORY: All CT scans at this facility are submitted to the National Radiology Data Registry (NRDR) Dose Index Registry (DIR) with the [employer] (A[employer]). RADIATION OPTIMIZATION: All CT scans at this facility use at least one of these dose optimization techniques: automated exposure control; mA and/or kV adjustment per patient size (includes targeted exams where dose is matched to clinical indication); or iterative reconstruction.
[2025-04-15 13:35] LABS: Glucose Negative (Negative)
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
== END 2025-04-15 14:04 | disposition home or self-care (01) ==
PROVIDERS: Emergency Provider Physician Assistant; PCP Nurse Practitioner Family
DX: K59.00 Constipation, unspecified (principal); R10.9 Unspecified abdominal pain
CPT/HCPCS: 99283; 99285; 80053; 83690; 93005; 96361; 96365; 74177; 81003; 83735; 84484; 85025; 93010; J0131; J3490

== ENCOUNTER 2025-05-30 14:28 | Inpatient (IN) | payer MEDICARE, SELFPAY ==
[2025-05-30] VITALS (118 sets, daily range): BP systolic 98–163; BP diastolic 62–127; PULSE 93–118; RESP 13–39; TEMP 36.1–37.1; O2SAT 88–98
--- NOTE | 2025-05-30 14:30 | DI.RAD_ITS ---
Exam(s) XR CHEST 2V PA LATERAL EXAM: XR CHEST 2V PA LATERAL CLINICAL HISTORY: SOB, tachy. TECHNIQUE: 2D digital imaging was performed. COMPARISON: CR XR CHEST 2V PA LATERAL from 09/14/[address] ABDOMEN PELVIS W from 04/15/2025 FINDINGS: 2 views: Heart size is upper normal. The mediastinum is not widened. There is platelike atelectasis in the right lung base. Previously there was significant infiltrate at this location on 09/14/2024. There are mild increased markings above this level in the right lung and mild increased markings in the left lower lobe. No obvious pleural effusions. No pulmonary edema. Hiatal hernia evident, more F CT scan 04/15/2025 than on today's chest x-ray. IMPRESSION: Mild lung base findings as above with significant improvement when compared to the chest x-ray of August 2024. However, there is still some increased markings in the lung bases. DATA REPOSITORY: RADIATION DOSE DELIVERED:
--- NOTE | 2025-05-30 14:30 | RT.EKG_ITS ---
APPROVED REPORT Exam: Resting ECG Reason for Exam: SOB Patient Location: E HR:102 bpm ECG Measurements Heart Rate 102 AXIS [place] 143 P 54 QRSd 94 QRS 81 QT 346 T 62 QTc 452 Conclusion Sinus tachycardia, rate 102 No interval abnormalities No STEMI No significant changes from prior
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
[2025-05-30 15:18] LABS: Abs Immature Grans 0.03 10^3/uL (0.0-0.06); HCT 42.3 % (36.0-46.0); HGB 14.1 g/dL (11.2-15.7); Immature Grans % 0.3 %; MCH 30.8 pg (27.0-33.0); MCHC 33.3 % (32.0-36.0); MCV 92 fL (80-95); MPV 9.6 fL (8.0-11.0); Platelet Count 161 10^3/uL (130-400); RBC 4.58 10^6/uL (3.93-5.22); RDW 13.3 % (11.7-14.6); RDW-SD 45.1 fL; WBC 11.44 10^3/uL (4.4-10.8)
[2025-05-30] MEDS: methylPREDNISolone SUCC 125 MG VIAL IVP (15:34)
[2025-05-30] MEDS: Albuterol/Ipratropium 3 ML UPD VIAL UPD ×2 (15:35→20:30)
[2025-05-30 15:45] LABS: ALT 22 U/L (10-49); AST 29 U/L (<34); Albumin 3.5 g/dL (3.2-5.0); Alkaline Phosphatase 61 U/L (46-116); Anion Gap 8.5 mmol/L (3-11); BUN 10 mg/dL (9-23); Bilirubin, Total 3.60 mg/dL (0.2-1.2); CO2 26.5 mmol/L (20.0-31.0); Calcium 8.4 mg/dL (8.3-10.6); Chloride 106 mmol/L (98-107); Glucose 97 mg/dL (74-106); Magnesium 1.7 mg/dL (1.6-2.6); Potassium 4.2 mmol/L (3.5-5.1); Sodium 141 mmol/L (136-145); Total Protein 5.8 g/dL (5.7-8.2)
[2025-05-30 15:46] LABS: D-Dimer 518 ng/mlFEU (<500)
[2025-05-30 15:48] LABS: Troponin I < 3 ng/L (<35)
[2025-05-30 15:59] LABS: COVID-19 PCR Negative (Negative); RSV PCR Negative (Negative)
--- NOTE | 2025-05-30 16:15 | DI.CT_ITS ---
Exam(s) CT CHEST PE CTA EXAM: CT CHEST PE CTA CLINICAL HISTORY: positive dimer. TECHNIQUE: Imaging Protocol: CT angiography of the chest was performed using pulmonary embolus protocol. Multi planar reconstructions were performed. CONTRAST MATERIAL: Intravenous: Omnipaque 350 Contrast volume: 100 cc COMPARISON: Prior CT scan 03/22/2024. FINDINGS: CHEST: PULMONARY ARTERIES: There are no intraluminal filling defects to suggest acute pulmonary emboli. LUNGS: There is pleural based infiltrate contiguous with the diaphragm over the right lower lobe measuring 2.2 cm by 1.2 cm.. This was not evident on the CT scan of 03/22/2024. There is no associated pleural effusion. Calcified granuloma in the right lower lobe is also noted.. Mild increased dependent markings in the left lower lobe posterior basal segment. There are no pleural effusions on either side. No significant findings in the trachea and mainstem bronchi. MEDIASTINUM: There is no hilar nor mediastinal adenopathy. Visualized thyroid unremarkable.Moderate size hiatal hernia is noted, similar to previous. CARDIAC: Heart size is upper normal. There is no pericardial effusion.Caliber of the thoracic aorta is within normal limits. No dissection. There is no significant shift of the interventricular septum. PARTIALLY VISUALIZED UPPERMOST ABDOMEN: No significant adrenal findings. Liver is hypodense implying steatosis. OSSEOUS: No significant osseous lesions.No fractures.. IMPRESSION: 1. No evidence of acute pulmonary emboli. 2. There is pleural based infiltrate in the right lower lobe measuring 2.2 x 1.2 cm which has increased in size when compared to CT scan of February 2024. There is no overlying rib destruction and no pleural effusion. There are less, this requires appropriate close follow-up. Differential diagnosis is between infectious such as pneumonia, rounded atelectasis, or neoplasm. There are no pleural effusions. 3. Moderate size hiatal hernia again noted. Findings called by myself to ER physician 05/30/2025 at 5:24 p.m. RADIATION DOSE DELIVERED: 105.25mGy.cm Total DLP DATA REPOSITORY: All CT scans at this facility are submitted to the National Radiology Data Registry (NRDR) Dose Index Registry (DIR) with the [employer] (ACR). RADIATION OPTIMIZATION: All CT scans at this facility use at least one of these dose optimization techniques: automated exposure control; mA and/or kV adjustment per patient size (includes targeted exams where dose is matched to clinical indication); or iterative reconstruction.
[2025-05-30 16:26] LABS: Troponin I < 3 ng/L (<35)
[2025-05-30] MEDS: Normal Saline - Diluent 50 ML VIAL IJ (16:36)
[2025-05-30] MEDS: Normal Saline Flush 10 ML SYR IVP ×2 (16:37→20:57)
[2025-05-30] MEDS: Omnipaque 350 MG/ML 100 ML BTL IJ (16:37)
[2025-05-30] MEDS: cefTRIAXone 1 GM/50 ML BAG IVPB (17:42)
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
[2025-05-30] MEDS: AZITHROMYCIN 500 MG in Normal Saline 250 ML 250 MG IVPB (18:07)
--- NOTE | 2025-05-30 18:28 | W.PC.ACHO ---
Registration Status: REG ER Primary Language: Preferred Language: Divehi ED Information & Data Chief Complaint RespSymp 05/30/25 14:48 Triage Note Pt complaining of SOB with 05/30/25 14:32 movement started this morning Medical / Surgical History (Last Updated 11/09/24 @ 07:58 by Becca Mercedes RN) Palliative care encounter Advanced care planning/counseling discussion Respiratory failure with hypoxia Abnormal gait Acquired cyst of kidney (05/23/05) Alcohol abuse Closed fracture of two ribs (12/01/09) Diverticulitis of colon (05/23/89) Electroencephalogram abnormality (05/23/07) Hepatitis A virus infection Pneumococcal pneumonia (05/23/98) Viral meningitis (12/21/05) Subacromial bursitis of left shoulder joint (04/24/17) (Last Reviewed 05/14/24 @ 13:31 by Severino Perez NP) History of bilateral ligation of fallopian tubes History of colectomy (1988) Status post appendectomy Status post cholecystectomy Status post hip replacement Most Recent Vital Signs Temperature 37.1 C 05/30/25 14:35 Temperature Source Oral 05/30/25 14:35 Pulse 99 H 05/30/25 16:36 Respiratory Rate 26 H 05/30/25 16:36 Respiratory Effort Short of Breath, Labored 05/30/25 14:41 Respiratory Depth Normal 05/30/25 14:41 Blood Pressure 163/62 H 05/30/25 14:35 Pulse Oximetry 93 05/30/25 16:36 Oxygen Delivery Method Nasal Cannula 05/30/25 16:36 Oxygen Flow Rate 2 05/30/25 16:36 Allergies nabumetone (From Relafen) Adverse Reaction (Intermediate, Verified 05/30/25 14:34) GI UPSET Precautions Isolation Standard precaution 05/30/25 14:44 Active Medications Generic Name Dose Route Start Last Admin Trade Name Freq PRN Reason Stop Dose Admin Azithromycin 500 mg/ Sodium 250 mls @ 250 mls/hr 05/30/25 17:25 05/30/25 18:07 Chloride IVPB 05/30/25 18:24 250 mls/hr NOW ONE Administration Iohexol 100 ml 05/30/25 16:45 05/30/25 16:37 Omnipaque 350 Mg/Ml 100 Ml Btl IJ 06/29/25 23:59 100 ml DIRECTED ERUM Administration Sodium Chloride 0 ml 05/30/25 16:36 05/30/25 16:37 Normal Saline Flush 10 Ml Syr IVP 10 ml PRN PRN Administration Sodium Chloride 50 ml 05/30/25 16:45 05/30/25 16:36 Normal Saline - Diluent 50 Ml Vial IJ 50 ml DIRECTED ERUM Administration IV IV Catheter Type [Left] Saline Lock IV Catheter Gauge [Left] 20 Diagnostics 05/30/25 05/30/25 05/30/25 Range/Units 17:45 15:59 15:08 WBC 11.44 H (4.4-10.8) 10^3/uL RBC 4.58 (3.93-5.22) 10^6/uL Hgb 14.1 (11.2-15.7) g/dL Hct 42.3 (36.0-46.0) % MCV 92 (80-95) fL MCH 30.8 (27.0-33.0) pg MCHC 33.3 (32.0-36.0) % RDW 13.3 (11.7-14.6) % Plt Count 161 (130-400) 10^3/uL MPV 9.6 (8.0-11.0) fL Immature Gran % 0.3 % Neutrophils % 80.7 % Lymphocytes % 12.7 % Monocytes % 5.9 % Eosinophils % 0.2 % Basophils % 0.2 % Nucleated RBC % 0.0 (0.0-0.3) % Absolute Neutrophils 9.23 H (1.2-6.7) 10^3/uL Absolute Lymphocytes 1.45 (1.2-3.4) 10^3/uL Absolute Monocytes 0.67 (0.1-0.8) 10^3/uL Absolute Eosinophils 0.02 (0.0-0.7) 10^3/uL Absolute Basophils 0.02 (0.0-0.2) 10^3/uL D-Dimer 518 H (<500) ng/mlFEU Sodium 141 (136-145) mmol/L Potassium 4.2 (3.5-5.1) mmol/L Chloride 106 (98-107) mmol/L Carbon Dioxide 26.5 (20.0-31.0) mmol/L Anion Gap 8.5 (3-11) mmol/L BUN 10 (9-23) mg/dL Creatinine 0.62 (0.55-1.02) mg/dL Est GFR (CKD-EPI 2020) 91.94 (mL/min/1.73m2) Glucose 97 (74-106) mg/dL Calcium 8.4 (8.3-10.6) mg/dL Magnesium 1.7 (1.6-2.6) mg/dL Total Bilirubin 3.60 H (0.2-1.2) mg/dL AST 29 (<34) U/L ALT 22 (10-49) U/L Alkaline Phosphatase 61 (46-116) U/L Troponin I Cancelled < 3 < 3 (<35) ng/L NT-Pro-B Natriuret Pep 430 H (<300) pg/mL Total Protein 5.8 (5.7-8.2) g/dL Albumin 3.5 (3.2-5.0) g/dL COVID-19 Source SARS-CoV-2 (PCR) (Negative) Influenza Type A (PCR) (Negative) Influenza Type B (PCR) (Negative) RSV (PCR) (Negative) 05/30/25 Range/Units 14:50 WBC (4.4-10.8) 10^3/uL RBC (3.93-5.22) 10^6/uL Hgb (11.2-15.7) g/dL Hct (36.0-46.0) % MCV (80-95) fL MCH (27.0-33.0) pg MCHC (32.0-36.0) % RDW (11.7-14.6) % Plt Count (130-400) 10^3/uL MPV (8.0-11.0) fL Immature Gran % % Neutrophils % % Lymphocytes % % Monocytes % % Eosinophils % % Basophils % % Nucleated RBC % (0.0-0.3) % Absolute Neutrophils (1.2-6.7) 10^3/uL Absolute Lymphocytes (1.2-3.4) 10^3/uL Absolute Monocytes (0.1-0.8) 10^3/uL Absolute Eosinophils (0.0-0.7) 10^3/uL Absolute Basophils (0.0-0.2) 10^3/uL D-Dimer (<500) ng/mlFEU Sodium (136-145) mmol/L Potassium (3.5-5.1) mmol/L Chloride (98-107) mmol/L Carbon Dioxide (20.0-31.0) mmol/L Anion Gap (3-11) mmol/L BUN (9-23) mg/dL Creatinine (0.55-1.02) mg/dL Est GFR (CKD-EPI 2020) (mL/min/1.73m2) Glucose (74-106) mg/dL Calcium (8.3-10.6) mg/dL Magnesium (1.6-2.6) mg/dL Total Bilirubin (0.2-1.2) mg/dL AST (<34) U/L ALT (10-49) U/L Alkaline Phosphatase (46-116) U/L Troponin I (<35) ng/L NT-Pro-B Natriuret Pep (<300) pg/mL Total Protein (5.7-8.2) g/dL Albumin (3.2-5.0) g/dL COVID-19 Source Nasopharynx SARS-CoV-2 (PCR) Negative (Negative) Influenza Type A (PCR) Negative (Negative) Influenza Type B (PCR) Negative (Negative) RSV (PCR) Negative (Negative) Intake and Output - 24 Hour Total 05/30/25 14:20 thru 05/30/25 17:24 Output Total 450 Balance -450 Weight 79.379 kg Output: Urine 450 Problems (Last Updated 11/09/24 @ 07:58 by Becca Mercedes RN) Acute on chronic respiratory failure with hypoxia (Acute) CAP (community acquired pneumonia) (Acute) Severe sepsis (Acute) Chronic obstructive lung disease (Chronic) Anxiety (Chronic) Attestation Statement: By documenting the first initial, last name, and credentials of the reporting nurse below, both parties acknowledge that all relevant information regarding the patient handoff has been communicated, and that all questions have been addressed to ensure continuity and safety of care. Additional Patient Information/Comments: Report Received From: report called at 18:06. SBAR report received from Almaz johnson RN at 18:22. No further questions
[2025-05-31] VITALS (7 sets, daily range): BP systolic 107–130; BP diastolic 62–74; PULSE 80–104; RESP 17–18; TEMP 35.8–36.7; O2SAT 90–97
[2025-05-31] MEDS: Calcium Carbonate *TUMS* 500 MG CHEW 1000 MG PO ×2 (00:15→16:07)
[2025-05-31] MEDS: LORazepam 0.5 MG TAB PO ×2 (03:00→19:31)
[2025-05-31 06:09] LABS: HCT 42.0 % (36.0-46.0); HGB 13.9 g/dL (11.2-15.7); MCH 30.3 pg (27.0-33.0); MCHC 33.1 % (32.0-36.0); MCV 92 fL (80-95); MPV 11.3 fL (8.0-11.0); Platelet Count 118 10^3/uL (130-400); RBC 4.59 10^6/uL (3.93-5.22); RDW 13.2 % (11.7-14.6); RDW-SD 44.2 fL; WBC 6.68 10^3/uL (4.4-10.8)
[2025-05-31 06:19] LABS: Anion Gap 8.9 mmol/L (3-11); BUN 11 mg/dL (9-23); CO2 26.1 mmol/L (20.0-31.0); Calcium 8.8 mg/dL (8.3-10.6); Chloride 108 mmol/L (98-107); Glucose 155 mg/dL (74-106); Potassium 4.1 mmol/L (3.5-5.1); Sodium 143 mmol/L (136-145)
[2025-05-31 06:21] LABS: Magnesium 2.1 mg/dL (1.6-2.6)
[2025-05-31 07:24] LABS: Glucose 100 mg/dL (Negative)
[2025-05-31 07:38] LABS: C & S Indicated? No; RBC 0-2 HPF (0-2)
[2025-05-31] MEDS: Normal Saline Flush 10 ML SYR IVP ×3 (08:13→19:32)
[2025-05-31] MEDS: Enoxaparin 40 MG/0.4 ML SYR SC (08:13)
[2025-05-31] MEDS: predniSONE 20 MG TAB 40 MG PO (08:13)
[2025-05-31] MEDS: Tiotropium Bromide-Respimat 10 PUFF INH 2 PUFF IH (08:40)
[2025-05-31] MEDS: Budesonide/Formoterol 80/4.5 10.2 GM 120 PUFF INH IH ×2 (08:44→19:31)
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
--- NOTE | 2025-05-31 11:16 | PGE_ITS ---
Date of Service Date of service: 05/31/25 Time of Service: 11:16 Assessment and Plan Assessment and plan (1) Severe sepsis: Status: Acute Assessment and plan: - Patient meets criteria for severe sepsis on admission with a heart rate of 104, respiratory rate of 33, source of infection being presumed lower lobe pneumonia, elevated total bilirubin of 3.6 - Lactic acid was not checked in the emergency department - Started on ceftriaxone and azithromycin, will continue - Follow-up blood culture results (2) CAP (community acquired pneumonia): Status: Acute Assessment and plan: - Source of infection as noted above (3) Acute on chronic respiratory failure with hypoxia: Status: Acute Assessment and plan: - Patient reportedly uses oxygen as needed at home - Currently requiring 1 L nasal cannula to maintain oxygen saturation of 88 to 92% - Wean as tolerated (4) Chronic obstructive lung disease: Status: Chronic Assessment and plan: - acute exacerbation, wheezing noted on exam - Will order 125 mg methylprednisolone upon admission follow-up with 40 mg p.o. prednisone daily - Continue scheduled nebulizer treatments - Continue home inhaler regimen (5) Anxiety: Status: Chronic Assessment and plan: - Continue home as needed hydroxyzine and lorazepam Discharge Planning Discharge Planning: discharge possibly later today if patient feels better, otherwise likely tomorrow 06/01 Subjective Subjective Interval history since last seen: Patient states that she is feeling significantly better as compared to when she was admitted and she has no complaints or concerns at this time. Exam Narrative Exam Narrative: Fatigued appearing older female laying in bed in mild respiratory distress, ANO x 4, heart regular rhythm, lungs with end expiratory wheezing heard throughout bilateral lung weston, abdomen soft, nontender, nondistended Objective Last Vital Signs Temp 97.9 F 05/31/25 07:40 Pulse 88 05/31/25 07:40 Resp 17 05/31/25 07:40 BP 124/74 05/31/25 07:40 Pulse Ox 97 05/31/25 07:40 Laboratory Results - last 24 hr 05/30/25 05/30/25 05/30/25 14:50 15:08 15:59 WBC 11.44 H RBC 4.58 Hgb 14.1 Hct 42.3 MCV 92 MCH 30.8 MCHC 33.3 RDW 13.3 Plt Count 161 MPV 9.6 Immature Gran % 0.3 Neutrophils % 80.7 Lymphocytes % 12.7 Monocytes % 5.9 Eosinophils % 0.2 Basophils % 0.2 Nucleated RBC % 0.0 Absolute Neutrophils 9.23 H Absolute Lymphocytes 1.45 Absolute Monocytes 0.67 Absolute Eosinophils 0.02 Absolute Basophils 0.02 D-Dimer 518 H Sodium 141 Potassium 4.2 Chloride 106 Carbon Dioxide 26.5 Anion Gap 8.5 BUN 10 Creatinine 0.62 Est GFR (CKD-EPI 2020) 91.94 Glucose 97 Calcium 8.4 Magnesium 1.7 Total Bilirubin 3.60 H AST 29 ALT 22 Alkaline Phosphatase 61 Troponin I < 3 < 3 NT-Pro-B Natriuret Pep 430 H Total Protein 5.8 Albumin 3.5 Urine Color Urine Clarity Urine pH Ur Specific [place] Urine Protein Urine Ketones Urine Blood Urine Nitrite Urine Bilirubin Urine Urobilinogen Ur Leukocyte Esterase Urine RBC Urine WBC Ur Epithelial Cells Urine Crystals Urine Bacteria Urine Casts Urine Mucus Ur Culture Indicated? Urine Glucose COVID-19 Source Nasopharynx SARS-CoV-2 (PCR) Negative Influenza Type A (PCR) Negative Influenza Type B (PCR) Negative RSV (PCR) Negative 05/30/25 05/31/25 05/31/25 17:45 05:30 07:05 WBC 6.68 RBC 4.59 Hgb 13.9 Hct 42.0 MCV 92 MCH 30.3 MCHC 33.1 RDW 13.2 Plt Count 118 L MPV 11.3 H Immature Gran % Neutrophils % Lymphocytes % Monocytes % Eosinophils % Basophils % Nucleated RBC % Absolute Neutrophils Absolute Lymphocytes Absolute Monocytes Absolute Eosinophils Absolute Basophils D-Dimer Sodium 143 Potassium 4.1 Chloride 108 H Carbon Dioxide 26.1 Anion Gap 8.9 BUN 11 Creatinine 0.53 L Est GFR (CKD-EPI 2020) 110.18 Glucose 155 H Calcium 8.8 Magnesium 2.1 Total Bilirubin AST ALT Alkaline Phosphatase Troponin I Cancelled NT-Pro-B Natriuret Pep Total Protein Albumin Urine Color Yellow Urine Clarity Sl Cloudy Urine pH 5.5 Ur Specific [place] 1.015 Urine Protein Negative Urine Ketones Negative Urine Blood Negative Urine Nitrite Positive H Urine Bilirubin Negative Urine Urobilinogen 0.2 Ur Leukocyte Esterase Negative Urine RBC 0-2 Urine WBC 3-5 Ur Epithelial Cells Moderate Urine Crystals Few Amorphous Urine Bacteria Moderate Urine Casts Negative Urine Mucus Negative Ur Culture Indicated? No Urine Glucose 100 H COVID-19 Source SARS-CoV-2 (PCR) Influenza Type A (PCR) Influenza Type B (PCR) RSV (PCR) VTE Prohylaxis Risk Level: Moderate/High Risk Contraindications: None Prophylaxis: Pharmacologic Time Spent with Patient Time Spent with Patient: >50 minutes Time was spent: preparing to see the patient(eg.review tests), obtaining and/or reviewing separately otained hiistory, ordering medications,tests, procedures, referring, communicating with other health managed care liaison, indepentently interpreting results, counseling the patient and care coordination
--- NOTE | 2025-05-31 16:29 | PHA.REVIEW2 ---
Pharmacy Admission Review Admission Clinical Review Admission Pharmacy Review: Acute on chronic respiratory failure with hypoxia (Acute) CAP (community acquired pneumonia) (Acute) Severe sepsis (Acute) nabumetone (From Relafen) Adverse Reaction (Intermediate, Verified 05/30/25 14:34) GI UPSET Resuscitation Status Full Code Height 5 ft 7 in Weight 79.379 kg Pharmacy Admission Review Renal Dosing Renal Dosing: BUN 11 mg/dL (9-23) 05/31/25 05:30 Creatinine 0.53 mg/dL (0.55-1.02) L 05/31/25 05:30 Medications needing adjustments: Reviewed (CRCL=47ML/MIN; NO MEDS CURRENTLY NEED RENAL ADJUSTMENT) Anticoagulation Anticoagulation: Hgb 13.9 g/dL (11.2-15.7) 05/31/25 05:30 Hct 42.0 % (36.0-46.0) 05/31/25 05:30 Plt Count 118 10^3/uL (130-400) L 05/31/25 05:30 Creatinine 0.53 mg/dL (0.55-1.02) L 05/31/25 05:30 DVT Prophylaxis: Reviewed Medications: Enoxaparin Opiate Usage Evaluate Pain Scale/Pains Meds: N/A Relevant Labs Relevant Labs: Sodium 143 mmol/L (136-145) 05/31/25 05:30 Potassium 4.1 mmol/L (3.5-5.1) 05/31/25 05:30 Chloride 108 mmol/L (98-107) H 05/31/25 05:30 Magnesium 2.1 mg/dL (1.6-2.6) 05/31/25 05:30 Electrolytes, C-Reactive P, ESR: Reviewed DM Control DM Control: Reviewed (AM [id number]; NO HISTORY OF DM-MONITOR WHILE ON STEROIDS) Cardiac Review Cardiac Review: Troponin I Cancelled 05/30/25 17:45 NT-Pro-B Natriuret Pep 430 pg/mL (<300) H 05/30/25 15:08 BP, HR, EF%: Reviewed (BP AND HR within normal limits) QTc Review QTc: Reviewed (azk=[id number]) IV to PO Switch IV Medications: Reviewed Home Meds Home Med List reviewed: Reviewed Pharmacy Antibiotic Review Pharmacy Antibiotic Activity: Reviewed, no change (on ceftriaxone and azithromycin for CAP)
[2025-05-31] MEDS: cefTRIAXone 1 GM/50 ML BAG IVPB (17:42)
[2025-05-31] MEDS: Azithromycin 250 MG TAB PO (17:42)
[2025-06-01 03:13] VITALS: BP 126/78; PULSE 79; RESP 18; TEMP 35.8; O2SAT 92
[2025-06-01 07:19] VITALS: BP 142/80; PULSE 84; RESP 18; TEMP 36.8; O2SAT 94
[2025-06-01] MEDS: Normal Saline Flush 10 ML SYR IVP (07:50)
[2025-06-01] MEDS: predniSONE 20 MG TAB 40 MG PO (07:50)
[2025-06-01] MEDS: Enoxaparin 40 MG/0.4 ML SYR SC (07:50)
[2025-06-01] MEDS: Budesonide/Formoterol 80/4.5 10.2 GM 120 PUFF INH IH (08:13)
[2025-06-01] MEDS: Tiotropium Bromide-Respimat 10 PUFF INH 2 PUFF IH (08:13)
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
--- NOTE | 2025-06-01 09:11 | CMDISCH_ITS ---
Date of service: 06/01/25 Time of Service: 09:11 LACE Index Scoring Tool Questions: Length of Stay (in days): 2 Was the patient admitted via the E.D.?: Yes Comorbidities: Chronic Pulmonary Disease and Liver or Renal Disease E.D. 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 She will follow up with her community providers and plan of care and transport with family. SDOH Health Related Social Needs: Health related social needs inadequate housing materia l hardship lonely/isolated Health related social needs details Pt declines any in tervention Health related social needs details: Pt declines any intervention
== END 2025-06-01 10:38 | disposition home or self-care (01) | DRG 871 ==
LOC: ER 18:18 → MS 21:34
PROVIDERS: Hospitalist; Admitting Provider Family Medicine; Emergency Provider Emergency Medicine; PCP Nurse Practitioner Family; Responsible Provider Family Medicine; Visit Provider Family Medicine
DX: A41.9 Sepsis, unspecified organism (principal); J96.21 Acute and chronic respiratory failure with hypoxia; J18.9 Pneumonia, unspecified organism; R65.20 Severe sepsis without septic shock; J44.0 Chronic obstructive pulmonary disease with (acute) lower respiratory infection; F41.9 Anxiety disorder, unspecified; J44.1 Chronic obstructive pulmonary disease with (acute) exacerbation; Z59.10 Inadequate housing, unspecified; K44.9 Diaphragmatic hernia without obstruction or gangrene; Z79.899 Other long term (current) drug therapy; R54 Age-related physical debility; G89.4 Chronic pain syndrome; E78.5 Hyperlipidemia, unspecified; K64.8 Other hemorrhoids; J98.6 Disorders of diaphragm; Z87.891 Personal history of nicotine dependence; Z59.87 Material hardship due to limited financial resources, not elsewhere classified; R45.89 Other symptoms and signs involving emotional state
CPT/HCPCS: 00123; 36415; 71275; 80048; 80053; 85027; 87637; 93005; 94640; 94761; 96365; 96368; 96375; 99285; J1650; 71046; 81003; 81015; 83735; 83880; 84484; 85025; 85379; 93010; 94664; 94760; 99222; 99233; 99239; J0456; J0696; J2919; J3490; J7512; J7620